=== PATIENT | female | born 1955 | race Caucasian/White ===

== ENCOUNTER → 2017-05-02 07:30 | Outpatient (CLI) | payer MEDICAID, SELFPAY ==
[2017-05-02 13:27] LABS: Basophils # 0.1 K/mm3 (0-0.2); Basophils % 0.7 % (0.1-2.0); Eosinophils # 0.1 K/mm3 (0.0-0.4); Eosinophils % 1.4 % (0.1-12.0); Hematocrit 43.4 % (37.0-47.0); Hemoglobin 13.7 g/dL (12.2-16.2); Lymphocytes # 4.8 K/mm3 (0.7-4.5); Lymphocytes % 47.7 K/mm3 (10-50); Mean Corpuscular HGB Conc 31.6 g/dL (31.8-35.4); Mean Corpuscular Hemoglobin 29.9 pg (27.0-31.2); Mean Corpuscular Volume 94.7 fl (81-99); Mean Platelet Volume 6.7 fl (7.4-10.4); Monocytes # 0.3 K/mm3 (0.1-1.0); Monocytes % 3.2 % (1.7-9.3); Neutrophils # 4.7 K/mm3 (1.8-7.8); Neutrophils % 46.9 % (37.0-80.0); Platelet Count 622 K/mm3 (142-424); Red Blood Count 4.59 M/mm3 (4.20-5.40); Red Cell Distribution Width 13.8 % (11.5-17.5); White Blood Count 10.1 K/mm3 (4.8-10.8)
[2017-05-02 13:56] LABS: Alanine Aminotransferase 18 U/L (12-78); Albumin Level 3.3 gm/dL (3.4-5.0); Albumin/Globulin Ratio 0.9 (1.1-1.8); Alkaline Phosphatase 65 U/L (46-116); Anion Gap 11.2 mEq/L (5-15); Aspartate Amino Transferase 12 U/L (15-37); Bilirubin,Total 0.3 mg/dL (0.2-1.0); Blood Urea Nitrogen 22 mg/dL (7-18); Calcium 9.9 mg/dL (8.5-10.1); Carbon Dioxide 34 mmol/L (21.0-32.0); Chloride 102 mmol/L (98-107); Chol/HDL Ratio 3.4 (1-3.5); Cholesterol 168 mg/dL (140-200); Creatinine,Serum 0.91 mg/dL (0.55-1.02); Estimated Glomerular Filt Rate 63 ml/min (>60); GFR (African American) 76 ML/MIN (>60); Globulin 3.5 gm/dl (1.3-3.2); Glucose 86 mg/dL (74-106); HDL Cholesterol 49 mg/dL (29-89); LDL Cholesterol 85 mg/dL (0-130); Potassium 4.2 mmoL/L (3.5-5.1); Sodium 143 mmol/L (136-145); Total Protein,Serum 6.8 gm/dL (6.4-8.2); Triglycerides 169 mg/dL (30-200); VLDL Cholesterol 34 mg/dL (0-40)
== END ==
PROVIDERS: PCP Nurse Practitioner Family; Visit Provider Nurse Practitioner Family
DX: E78.5 Hyperlipidemia, unspecified (principal); I10 Essential (primary) hypertension; J44.1 Chronic obstructive pulmonary disease with (acute) exacerbation; K62.5 Hemorrhage of anus and rectum
CPT/HCPCS: 36415; 80053; 80061; 85025

== ENCOUNTER → 2017-05-11 13:19 | Outpatient (CLI) | payer MEDICAID, SELFPAY ==
--- NOTE | 2017-05-11 13:26 | XR_ITS ---
EXAM: XR thoracic spine 3V HISTORY: ITS.REASON: ACUTE BILAT THORACIC PAIN COMPARISON: Lateral chest radiograph of 11/25/2016 FINDINGS: Normal alignment. There is mild chronic wedging involving what appears to represent T7 and T8. Mild wedging lumbar T9 which was not evident on the previous exam and may be acute with cortical disruption along the anterior inferior margin. There is loss of height of T9 of approximately 30%. No obvious retropulsed fragments. Degenerative disc disease is present at T11-T12 MRI may confirm these above findings. IMPRESSION: 1. Mild wedging of T9 which has developed since 11/25/2016 2. Chronic wedging of T7 and T8.
== END ==
PROVIDERS: PCP Nurse Practitioner Family; Visit Provider Nurse Practitioner Family
DX: M54.6 Pain in thoracic spine (principal)
CPT/HCPCS: 72072

== ENCOUNTER 2017-06-07 10:00 | Outpatient (RCR) | payer MEDICAID, SELFPAY | END 2017-07-03 15:09 | disposition home or self-care (01) | LOC: PT 10:00 | PROVIDERS: Family Provider Internal Medicine Adolescent Medicine; PCP Nurse Practitioner Family; Visit Provider Internal Medicine Adolescent Medicine | DX: M54.6 Pain in thoracic spine (principal) | CPT/HCPCS: 97014; 97033; 97035; 97110; 97140; G0283 ==

== ENCOUNTER → 2017-06-11 11:08 | Outpatient (CLI) | payer MEDICAID, SELFPAY ==
[2017-06-11 13:55] LABS: Basophils # 0.1 K/mm3 (0-0.2); Basophils % 0.5 % (0.1-2.0); Eosinophils # 0.1 K/mm3 (0.0-0.4); Eosinophils % 1.2 % (0.1-12.0); Hematocrit 42.7 % (37.0-47.0); Hemoglobin 14.4 g/dL (12.2-16.2); Lymphocytes # 2.5 K/mm3 (0.7-4.5); Mean Corpuscular HGB Conc 33.7 g/dL (31.8-35.4); Mean Corpuscular Hemoglobin 30.6 pg (27.0-31.2); Mean Corpuscular Volume 90.8 fl (81-99); Mean Platelet Volume 6.8 fl (7.4-10.4); Monocytes # 0.5 K/mm3 (0.1-1.0); Monocytes % 4.4 % (1.7-9.3); Neutrophils # 8.6 K/mm3 (1.8-7.8); Neutrophils % 72.9 % (37.0-80.0); Platelet Count 533 K/mm3 (142-424); Red Blood Count 4.71 M/mm3 (4.20-5.40); Red Cell Distribution Width 14.1 % (11.5-17.5); White Blood Count 11.8 K/mm3 (4.8-10.8)
== END ==
PROVIDERS: PCP Nurse Practitioner Family; Visit Provider Nurse Practitioner Family
DX: D47.3 Essential (hemorrhagic) thrombocythemia (principal)
CPT/HCPCS: 36415; 85025

== ENCOUNTER → 2017-06-25 10:42 | Outpatient (CLI) | payer MEDICAID, SELFPAY ==
--- NOTE | 2017-06-25 10:45 | MM_ITS ---
MM Dig screening mamm BI w/CAD CAD Screening ORDERING PHYSICIAN : Kingston Ybarra MD PATIENT AGE: 62 years GENDER: Female COMPARISON: Previous mammograms: November 2014, May 2016, June 20, 2016. INDICATION: No hormones no new complaints noncontributory family history TECHNIQUE: Standard CC and MLO images were obtained. R2 CAD reviewed. FINDINGS: Low-density breast with no significant new findings. Multiple mole markers bilaterally noted RIGHT BREAST:. Stable.. Scattered benign calcifications just lateral and above nipple. LEFT BREAST:The small round nodular density at the deep left breast likely at the inferior margin of the breast is again observed and stable. May be a skin mole based on the diagnostic images from 06/20/2016 is again observed. No significant change. The small cluster of stable benign punctate calcifications deep upper quadrant left breast is stable. IMPRESSION: Stable bilateral mammogram with no significant new findings. . Stable benign-appearing features bilaterally within otherwise low-density fatty breast Bilateral follow-up in one year recommended. BI-RADS Category: 1 Negative RECOMMENDED FOLLOW-UP: 1YR - 1 YEAR FOLLOW-UP (A letter has been sent to the patient regarding results of the study.)
== END ==
PROVIDERS: Family Provider Internal Medicine Adolescent Medicine; PCP Nurse Practitioner Family; Visit Provider Internal Medicine Adolescent Medicine
DX: Z12.31 Encounter for screening mammogram for malignant neoplasm of breast (principal)
CPT/HCPCS: 77067

== ENCOUNTER → 2017-07-23 09:44 | Outpatient (POV) | payer MEDICAID, SELFPAY ==
[2017-07-23 09:57] VITALS: BP 137/95; PULSE 96; RESP 21; O2SAT 95; BMI 33.2
--- NOTE | 2017-07-23 10:37 | HMH.PAINSOAP ---
[facility] Pain Management SOAP Note Subjective:: This patient is a pleasant 62-year-old white female who presents today for evaluation. Patient has been seen in our clinic before however she has not been able to do any injective therapy due to hospital admissions and emergency surgeries. Patient states that her thoracic back pain has worsened. Patient had an x-ray of her thoracic spine showing wedging. Patient does not have MRI of thoracic spine. Patient rates her pain a 7 out of 10 today. Patient states it is progressively getting worse. Patient has completed physical therapy with no relief. ROS General: no recent weight change, no fever, no sleep disturbances Respiratory: no cough, no shortness of air, no recurring pulmonary infections Cardiovascular/Peripheral Vascular: No chest pain, No palpitations, no edema, no shortness of breath. Gastrointestinal: no incontinence, normal bowel movements reported Genitourinary: no incontinence Musculoskeletal: Low back and thoracic back pain Psychiatric: normal mood/ affect Neurological: [denies weakness in extremities], [denies balance issues] Objective:: Physical Exam General: Alert and oriented x3, no acute distress, pleasant and cooperative, [on room air] Lungs: Resps E/U, Symmetrical chest expansion, Eyes: PERRL Musculoskeletal: Flexion and extension of thoracic spine somewhat guarded secondary to pain, deep tendon reflexes normal, strength in upper and lower extremities [5/5], normal gait noted, palpable trigger points in bilateral thoracic paraspinous, extreme tenderness over the thoracic spine Neurological: speech clear, grappler equal, no gross sensory deficits Assessment:: Myofascial pain syndrome, thoracic back pain, thoracic vertebral wedging Plan:: We will order an MRI of her thoracic spine. Given the pathology on her x-ray I believe that this is warranted. Patient's tried physical therapy without relief. Patient also tried medications and anti-inflammatories without relief. We will also order trigger point injections of the thoracic paraspinous bilaterally. I believe that this may help with some of her myofascial pain. This note was dictated using voice recognition software and may contain errors or omissions
--- NOTE | 2017-07-23 10:40 | P.CONS_ITS ---
[facility] Pain Management SOAP Note Subjective:: This patient is a pleasant 62-year-old white female who presents today for evaluation. Patient has been seen in our clinic before however she has not been able to do any injective therapy due to hospital admissions and emergency surgeries. Patient states that her thoracic back pain has worsened. Patient had an x-ray of her thoracic spine showing wedging. Patient does not have MRI of thoracic spine. Patient rates her pain a 7 out of 10 today. Patient states it is progressively getting worse. Patient has completed physical therapy with no relief. ROS General: no recent weight change, no fever, no sleep disturbances Respiratory: no cough, no shortness of air, no recurring pulmonary infections Cardiovascular/Peripheral Vascular: No chest pain, No palpitations, no edema, no shortness of breath. Gastrointestinal: no incontinence, normal bowel movements reported Genitourinary: no incontinence Musculoskeletal: Low back and thoracic back pain Psychiatric: normal mood/ affect Neurological: [denies weakness in extremities], [denies balance issues] Objective:: Physical Exam General: Alert and oriented x3, no acute distress, pleasant and cooperative, [ on room air] Lungs: Resps E/U, Symmetrical chest expansion, Eyes: PERRL Musculoskeletal: Flexion and extension of thoracic spine somewhat guarded secondary to pain, deep tendon reflexes normal, strength in upper and lower extremities [5/5], normal gait noted, palpable trigger points in bilateral thoracic paraspinous, extreme tenderness over the thoracic spine Neurological: speech clear, back gray cloth washer equal, no gross sensory deficits Assessment:: Myofascial pain syndrome, thoracic back pain, thoracic vertebral wedging Plan:: We will order an MRI of her thoracic spine. Given the pathology on her x-ray I believe that this is warranted. Patient's tried physical therapy without relief. Patient also tried medications and anti-inflammatories without relief. We will also order trigger point injections of the thoracic paraspinous bilaterally. I believe that this may help with some of her myofascial pain. This note was dictated using voice recognition software and may contain errors or omissions
[2017-07-23 11:29] LABS: Basophils % 0.5 % (0.1-2.0); Eosinophils # 0.1 K/mm3 (0.0-0.4); Eosinophils % 0.9 % (0.1-12.0); Hematocrit 46.4 % (37.0-47.0); Hemoglobin 15.1 g/dL (12.2-16.2); Lymphocytes # 2.8 K/mm3 (0.7-4.5); Lymphocytes % 34.4 K/mm3 (10-50); Mean Corpuscular HGB Conc 32.5 g/dL (31.8-35.4); Mean Corpuscular Hemoglobin 31.4 pg (27.0-31.2); Mean Corpuscular Volume 96.7 fl (81-99); Mean Platelet Volume 6.4 fl (7.4-10.4); Monocytes # 0.4 K/mm3 (0.1-1.0); Monocytes % 4.8 % (1.7-9.3); Neutrophils # 4.8 K/mm3 (1.8-7.8); Neutrophils % 59.3 % (37.0-80.0); Platelet Count 456 K/mm3 (142-424); Red Cell Distribution Width 14.3 % (11.5-17.5); White Blood Count 8.1 K/mm3 (4.8-10.8)
[2017-07-23 11:43] LABS: Anion Gap 10.2 mEq/L (5-15); Blood Urea Nitrogen 21 mg/dL (7-18); Carbon Dioxide 31 mmol/L (21.0-32.0); Chloride 96 mmol/L (98-107); Creatinine Clearance Estimated 74 mL/min (0-300); Creatinine,Serum 0.94 mg/dL (0.55-1.02); Estimated Glomerular Filt Rate 61 ml/min (>60); GFR (African American) 73 ML/MIN (>60); Glucose 86 mg/dL (74-106); Potassium 4.2 mmoL/L (3.5-5.1); Sodium 133 mmol/L (136-145)
== END ==
PROVIDERS: Surgery; Family Provider Internal Medicine Adolescent Medicine; PCP Nurse Practitioner Family; Visit Provider Clinical Nurse Specialist Family Health
DX: M54.6 Pain in thoracic spine (principal); M79.1 Myalgia
CPT/HCPCS: 99212; 36415; 80048; 85025; 93005

== ENCOUNTER → 2017-07-30 07:42 | Outpatient (CLI) | payer MEDICAID, SELFPAY ==
--- NOTE | 2017-07-30 07:44 | MR_ITS ---
MR thoracic spine wo con HISTORY: Symptoms X2 months. Mid back pain, pain worse on left side. No Trauma. ITS.REASON: THORACIC BACK PAIN ORDERING PHYSICIAN: Jamie Bautista MD PATIENT AGE: 62 years COMPARISON: Radiograph of 05/11/2017 showing new wedge compression changes of T9 and chronic wedge compression changes of T7 TECHNIQUE: Standard multiplanar multiecho sequences are performed without contrast. 3-D MIP and myelographic images are also rendered and reviewed FINDINGS: There is normal alignment. There is mild to moderate wedge compression changes of T7 with loss of height anteriorly of approximately 40% without retropulsion. These findings appear chronic. Mild chronic wedging also noted at T8 with loss of height anteriorly at 10%. There is resultant kyphosis in the mid to lower thoracic spine. Moderate wedge compression changes involve the T9 vertebral body with decreased T1 and T2 signal along the inferior endplate anteriorly with mild bone marrow edema in the mid and superior aspect of the vertebral body centrally and anteriorly. There is mild retropulsion of the posterior inferior aspect of T9 of approximately 3 mm with resultant narrowing of the canal but no cord impingement. Bilateral lateral recess narrowing also noted. There is multilevel degenerative disc disease from T5 to T 12. Minimal bulging disc present at T11-T12. IMPRESSION: 1. Acute wedge compression changes of T9 with loss of height anteriorly of 30-40% and mild retropulsion of the posterior inferior aspect of T9 x 3 mm with narrowing of the canal. 2. Multilevel degenerative disc disease with mild chronic wedging of T7 and T8 and mild lower thoracic kyphosis
== END ==
PROVIDERS: Family Provider Internal Medicine Adolescent Medicine; PCP Nurse Practitioner Family; Visit Provider Anesthesiology
DX: M54.6 Pain in thoracic spine (principal)
CPT/HCPCS: 72146

== ENCOUNTER → 2017-08-17 10:39 | Outpatient (CLI) | payer MEDICAID, SELFPAY ==
[2017-08-17 14:15] LABS: Alanine Aminotransferase 19 U/L (12-78); Albumin Level 3.9 gm/dL (3.4-5.0); Alkaline Phosphatase 88 U/L (46-116); Anion Gap 11.7 mEq/L (5-15); Aspartate Amino Transferase 15 U/L (15-37); Bilirubin,Total 0.4 mg/dL (0.2-1.0); Blood Urea Nitrogen 18 mg/dL (7-18); Carbon Dioxide 31 mmol/L (21.0-32.0); Chloride 101 mmol/L (98-107); Estimated Glomerular Filt Rate 64 ml/min (>60); GFR (African American) 77 ML/MIN (>60); Glucose 92 mg/dL (74-106); Potassium 3.7 mmoL/L (3.5-5.1); Sodium 140 mmol/L (136-145); Thyroid Stimulating Hormone 1.67 uIU/ml (0.358-3.740); Total Protein,Serum 7.9 gm/dL (6.4-8.2)
[2017-08-17 14:27] LABS: Basophils % 0.5 % (0.1-2.0); Eosinophils # 0.1 K/mm3 (0.0-0.4); Eosinophils % 1.3 % (0.1-12.0); Hematocrit 47.1 % (37.0-47.0); Hemoglobin 15.1 g/dL (12.2-16.2); Lymphocytes # 2.7 K/mm3 (0.7-4.5); Lymphocytes % 36.9 K/mm3 (10-50); Mean Corpuscular Hemoglobin 30.8 pg (27.0-31.2); Mean Corpuscular Volume 96.4 fl (81-99); Mean Platelet Volume 6.9 fl (7.4-10.4); Monocytes # 0.3 K/mm3 (0.1-1.0); Monocytes % 3.7 % (1.7-9.3); Neutrophils # 4.2 K/mm3 (1.8-7.8); Neutrophils % 57.7 % (37.0-80.0); Platelet Count 470 K/mm3 (142-424); Red Blood Count 4.89 M/mm3 (4.20-5.40); Red Cell Distribution Width 13.7 % (11.5-17.5); White Blood Count 7.3 K/mm3 (4.8-10.8)
[2017-08-18 20:14] LABS: Vitamin B12 566 pg/mL (232-1245); Vitamin D 25 Hydroxy 30.1 ng/mL (30.0-100.0)
== END ==
PROVIDERS: PCP Nurse Practitioner Family; Visit Provider Nurse Practitioner Family
DX: R53.83 Other fatigue (principal)
CPT/HCPCS: 36415; 80053; 82607; 82652; 84443; 85025

== ENCOUNTER → 2017-08-30 07:53 | Outpatient (CLI) | payer MEDICAID, SELFPAY ==
[2017-08-30 14:23] LABS: Basophils # 0.1 K/mm3 (0-0.2); Basophils % 0.6 % (0.1-2.0); Eosinophils # 0.1 K/mm3 (0.0-0.4); Eosinophils % 1.3 % (0.1-12.0); Hematocrit 43.6 % (37.0-47.0); Hemoglobin 14.5 g/dL (12.2-16.2); Lymphocytes # 3.2 K/mm3 (0.7-4.5); Lymphocytes % 37.2 K/mm3 (10-50); Mean Corpuscular HGB Conc 33.3 g/dL (31.8-35.4); Mean Corpuscular Hemoglobin 31.3 pg (27.0-31.2); Mean Platelet Volume 7.1 fl (7.4-10.4); Monocytes # 0.3 K/mm3 (0.1-1.0); Monocytes % 3.4 % (1.7-9.3); Neutrophils % 57.5 % (37.0-80.0); Platelet Count 441 K/mm3 (142-424); Red Blood Count 4.64 M/mm3 (4.20-5.40); Red Cell Distribution Width 13.4 % (11.5-17.5); White Blood Count 8.7 K/mm3 (4.8-10.8)
[2017-08-30 17:23] LABS: Alanine Aminotransferase 22 U/L (12-78); Albumin Level 3.5 gm/dL (3.4-5.0); Alkaline Phosphatase 78 U/L (46-116); Anion Gap 10.5 mEq/L (5-15); Aspartate Amino Transferase 15 U/L (15-37); Bilirubin,Direct 0.1 mg/dL (0.0-0.2); Bilirubin,Indirect 0.2 mg/dL (0.0-0.9); Bilirubin,Total 0.3 mg/dL (0.2-1.0); Blood Urea Nitrogen 24 mg/dL (7-18); Carbon Dioxide 30 mmol/L (21.0-32.0); Chloride 99 mmol/L (98-107); Chol/HDL Ratio 4.4 (1-3.5); Cholesterol 195 mg/dL (140-200); Creatinine,Serum 0.91 mg/dL (0.55-1.02); Estimated Glomerular Filt Rate 63 ml/min (>60); Free Thyroxine Index 2.9 ug/dL (5.93-13.13); GFR (African American) 76 ML/MIN (>60); Glucose 89 mg/dL (74-106); HDL Cholesterol 44 mg/dL (29-89); LDL Cholesterol 121 mg/dL (0-130); Potassium 3.5 mmoL/L (3.5-5.1); Sodium 136 mmol/L (136-145); T4 (Thyroxine) 8.7 ug/dl (4.7-13.3); Total Protein,Serum 7.3 gm/dL (6.4-8.2); Triglycerides 148 mg/dL (30-200); Triiodothryronine (T3) Uptake 33 % (31-39); VLDL Cholesterol 30 mg/dL (0-40)
== END ==
PROVIDERS: PCP Nurse Practitioner Family; Visit Provider Internal Medicine
DX: R06.00 Dyspnea, unspecified (principal); R94.31 Abnormal electrocardiogram [ECG] [EKG]; I25.10 Atherosclerotic heart disease of native coronary artery without angina pectoris; I10 Essential (primary) hypertension; E78.5 Hyperlipidemia, unspecified; Z86.010 Personal history of colon polyps
CPT/HCPCS: 36415; 80048; 80061; 80076; 84436; 84443; 84479; 85025

== ENCOUNTER → 2017-09-07 10:39 | Outpatient (CLI) | payer MEDICAID, SELFPAY ==
--- NOTE | 2017-09-07 10:40 | NM_ITS ---
History and Indications: Coronary disease previous MO, hypertension, tobacco use, family history and fatigue Procedure: Patient received a 0.4 mg of Lexiscan, resting heart rate was 73 beats per resting blood pressure 118/71, with Lexiscan maximum heart rate achieved was 113 beats prominent which is less than 85% of the maximum predicted heart rate and a blood pressure was 127/72. With Lexiscan patient complained of mild shortness of breath and stomach discomfort. Electrocardiogram: Resting electrocardiogram showed sinus rhythm, with Lexiscan there is less than 1.[address] segment depression from the baseline EKG. The EKG portion of the Lexiscan Myoview is nondiagnostic. Cardiac stress and resting SPECT images: Cardiac stress and resting SPECT images were obtained using technetium 99 Myoview 32.6 mCi at stress content 10.8 mCi at rest, gated SPECT further analysis of segmental wall motion and calculation of the ejection fraction also done. Cardiac stress and rest images show a mild fixed defect in the inferior wall with normal contractility gated SPECT is likely secondary to soft tissue, no reversible ischemia seen, either derived ejection fraction is over 65% with no obvious regional wall motion abnormality, right ventricle is normal size and contractility. Conclusion: 1. The EKG portion of the Lexiscan Myoview is nondiagnostic. 2. No obvious scintigraphic evidence of reversible ischemia seen, computer derived ejection fraction is over 65% with no obvious regional wall motion abnormality, right ventricle is normal size and contractility.
== END ==
PROVIDERS: Family Provider Internal Medicine Adolescent Medicine; PCP Nurse Practitioner Family; Visit Provider Internal Medicine
DX: R94.31 Abnormal electrocardiogram [ECG] [EKG] (principal); R06.00 Dyspnea, unspecified; I25.10 Atherosclerotic heart disease of native coronary artery without angina pectoris; E78.5 Hyperlipidemia, unspecified; I10 Essential (primary) hypertension; Z86.010 Personal history of colon polyps
CPT/HCPCS: 78452; 93017; A9502; J2785

== ENCOUNTER → 2017-09-11 07:36 | Outpatient (CLI) | payer MEDICAID, SELFPAY ==
[2017-09-11 14:01] LABS: Basophils % 0.5 % (0.1-2.0); Eosinophils # 0.1 K/mm3 (0.0-0.4); Eosinophils % 1.5 % (0.1-12.0); Hematocrit 42.2 % (37.0-47.0); Hemoglobin 14.2 g/dL (12.2-16.2); Lymphocytes # 2.7 K/mm3 (0.7-4.5); Lymphocytes % 32.3 K/mm3 (10-50); Mean Corpuscular HGB Conc 33.6 g/dL (31.8-35.4); Mean Corpuscular Hemoglobin 30.9 pg (27.0-31.2); Mean Corpuscular Volume 91.8 fl (81-99); Mean Platelet Volume 7.4 fl (7.4-10.4); Monocytes # 0.3 K/mm3 (0.1-1.0); Neutrophils # 5.2 K/mm3 (1.8-7.8); Neutrophils % 61.7 % (37.0-80.0); Platelet Count 433 K/mm3 (142-424); Red Blood Count 4.59 M/mm3 (4.20-5.40); Red Cell Distribution Width 13.5 % (11.5-17.5); White Blood Count 8.4 K/mm3 (4.8-10.8)
[2017-09-11 14:37] LABS: Alanine Aminotransferase 20 U/L (12-78); Albumin Level 3.9 gm/dL (3.4-5.0); Alkaline Phosphatase 84 U/L (46-116); Anion Gap 13.2 mEq/L (5-15); Aspartate Amino Transferase 15 U/L (15-37); Bilirubin,Total 0.4 mg/dL (0.2-1.0); Blood Urea Nitrogen 24 mg/dL (7-18); Calcium 9.9 mg/dL (8.5-10.1); Carbon Dioxide 30 mmol/L (21.0-32.0); Chloride 95 mmol/L (98-107); Creatinine,Serum 1.01 mg/dL (0.55-1.02); Estimated Glomerular Filt Rate 56 ml/min (>60); Ferritin 36 ng/mL (8-388); GFR (African American) 67 ML/MIN (>60); Globulin 3.8 gm/dl (1.3-3.2); Glucose 89 mg/dL (74-106); Magnesium 1.5 mg/dL (1.4-2.2); Potassium 3.2 mmoL/L (3.5-5.1); Sodium 135 mmol/L (136-145); Total Protein,Serum 7.7 gm/dL (6.4-8.2)
[2017-09-13 21:12] LABS: Vitamin B12 534 pg/mL (232-1245)
== END ==
PROVIDERS: Visit Provider Internal Medicine Adolescent Medicine
DX: G25.81 Restless legs syndrome (principal)
CPT/HCPCS: 36415; 80053; 82607; 82728; 83735; 85025

== ENCOUNTER → 2017-10-10 07:16 | Outpatient (CLI) | payer MEDICAID, SELFPAY ==
[2017-10-10 14:18] LABS: Basophils # 0.1 K/mm3 (0-0.2); Eosinophils # 0.3 K/mm3 (0.0-0.4); Eosinophils % 4.6 % (0.1-12.0); Hematocrit 43.2 % (37.0-47.0); Hemoglobin 13.5 g/dL (12.2-16.2); Lymphocytes % 45.5 K/mm3 (10-50); Mean Corpuscular HGB Conc 31.2 g/dL (31.8-35.4); Mean Corpuscular Hemoglobin 29.4 pg (27.0-31.2); Mean Corpuscular Volume 94.3 fl (81-99); Mean Platelet Volume 7.1 fl (7.4-10.4); Monocytes # 0.3 K/mm3 (0.1-1.0); Neutrophils % 44.8 % (37.0-80.0); Platelet Count 414 K/mm3 (142-424); Red Blood Count 4.58 M/mm3 (4.20-5.40); Red Cell Distribution Width 13.7 % (11.5-17.5); White Blood Count 6.6 K/mm3 (4.8-10.8)
[2017-10-10 14:36] LABS: Anion Gap 10.4 mEq/L (5-15); Blood Urea Nitrogen 14 mg/dL (7-18); Calcium 9.2 mg/dL (8.5-10.1); Carbon Dioxide 29 mmol/L (21.0-32.0); Chloride 103 mmol/L (98-107); Creatinine,Serum 0.87 mg/dL (0.55-1.02); Estimated Glomerular Filt Rate 66 ml/min (>60); GFR (African American) 80 ML/MIN (>60); Glucose 86 mg/dL (74-106); Potassium 3.4 mmoL/L (3.5-5.1); Sodium 139 mmol/L (136-145)
[2017-10-12 20:02] LABS: Vitamin D 25 Hydroxy 38.7 ng/mL (30.0-100.0)
== END ==
PROVIDERS: Visit Provider Internal Medicine Adolescent Medicine
DX: S22.070S Wedge compression fracture of T9-T10 vertebra, sequela (principal); E78.6 Lipoprotein deficiency
CPT/HCPCS: 36415; 80048; 82652; 85025

== ENCOUNTER → 2017-10-15 12:29 | Outpatient (CLI) | payer MEDICAID, SELFPAY ==
--- NOTE | 2017-10-15 12:37 | XR_ITS ---
DEXA SCAN.-BONE DENSITY STUDY HIPS AND LUMBAR SPINE HISTORY: Postmenopausal female. low calcium intake smoker. Takes vitamin D. TECHNIQUE: DEXA scan hip and lumbar spine The most complete data summary and color graphic presentation of the today's ( and any prior ) DEXA findings are available in PACS. Definition and treatment guidelines included. COMPARISON: None listed LUMBAR SPINE: L4 vertebral body demonstrates the lowest T score -3.1 with BMD0.83 g/cm sq Overall mean lumbar L1-L4 T score -2.2 with BMD0.911 g/cm sq . 2014 prior DEXA the mean T score -2.4, 0.897 with BMD was 1.224 g/cm sq Thus when comparing today's study to the prior exam there's been a 1.6 % increasing mean bone density at the lumbar spine. HIPS: Femoral neck density is best predictor of hip fracture risk . Right femoral neck with lowest T score = -3.1 with BMD0.933 g/cm sq . Left femoral neck T score -2.9 and BMD 0.642 Average all regions yields today's Hip Mean T score -2.3 with BMD0.719 g/cm sq . 2015 DEXA hip average T score -2.7 with mean BMD0.670 g/cm sq Thus this reflects a 7.3% increasein overall mean bone density at the hips in the interval. IMPRESSION...... 1. LUMBAR SPINE: Overall osteopenia at lumbar spine with overall T score -2.2. However there is osteoporosis at L4 vertebral body, with T score = -3.1 at L4 2. HIPS: Osteoporosis of the femoral necks bilaterally. Right femoral neck lowest T score -3.1. WHO criteria for post-menopausal, Women: Normal: T-score at or above -1 SD Osteopenia: T-score between -1 and -2.5 SD Osteoporosis: T-score at or below -2.5 SD
== END ==
PROVIDERS: Family Provider Internal Medicine Adolescent Medicine; PCP Nurse Practitioner Family; Visit Provider Internal Medicine Adolescent Medicine
DX: S22.070S Wedge compression fracture of T9-T10 vertebra, sequela (principal)
CPT/HCPCS: 77080

== ENCOUNTER → 2017-10-15 13:27 | Outpatient (POV) | payer MEDICAID, SELFPAY ==
[2017-10-15 13:33] VITALS: BP 141/85; PULSE 84; RESP 18; TEMP 36.6; O2SAT 95; BMI 31.7
--- NOTE | 2017-10-15 15:19 | HMH.PAINSOAP ---
[facility] Pain Management SOAP Note Subjective:: Patient is a pleasant 62-year-old white female who we are treating for low back pain along with a T9 compression fracture. Patient status post a kyphoplasty. Patient states that she has no pain in the site of the kyphoplasty. Patient states that all of the pain in relation to her compression fracture has dissipated. Patient states however her low back pain is getting worse. Patient has tried and failed physical therapy, medications, anti-inflammatories and injections. Patient is interested in intrathecal therapy I believe that this may be beneficial for her. Patient rates her pain an 8 out of 10 today. Patient states it is constant. Patient and I had a long discussion in regards to intrathecal pump therapy including realistic goal setting along with the trial and implantation process. Patient is interested in pursuing this. ROS General: no recent weight change, no fever, no sleep disturbances Respiratory: no cough, no shortness of air, no recurring pulmonary infections Cardiovascular/Peripheral Vascular: No chest pain, No palpitations, no edema, no shortness of breath. Gastrointestinal: no incontinence, normal bowel movements reported Genitourinary: no incontinence Musculoskeletal: Back pain, leg pain Psychiatric: normal mood/ affect, Neurological: [denies weakness in extremities], [denies balance issues] Objective:: Physical Exam General: Alert and oriented x3, no acute distress, pleasant and cooperative, [on room air] Lungs: Resps E/U, Symmetrical chest expansion, Eyes: PERRL Musculoskeletal: Flexion and extension of lumbar spine somewhat guarded secondary to pain, deep tendon reflexes normal, strength in upper and lower extremities [5/5], slightly antalgic noted, positive straight leg raise test bilaterally at 30? Neurological: speech clear, building specialist equal, no gross sensory deficits Assessment:: Degenerative disc disease, kyphosis, lumbar radiculopathy Plan:: Patient and I had a long discussion in regards to intrathecal pain therapy. Patient is interested in pursuing this. We will set her up with a psychological evaluation. Patient's tried and failed conservative measures such as physical therapy, medications, anti-inflammatories, injections. Patient is doing well in regards to her kyphoplasty. Patient is not on any oral narcotic medications at this time. I will follow-up with this patient after her intrathecal trial. This note was dictated using voice recognition software and may contain errors or omissions
--- NOTE | 2017-10-15 15:23 | P.CONS_ITS ---
[facility] Pain Management SOAP Note Subjective:: Patient is a pleasant 62-year-old white female who we are treating for low back pain along with a T9 compression fracture. Patient status post a kyphoplasty. Patient states that she has no pain in the site of the kyphoplasty. Patient states that all of the pain in relation to her compression fracture has dissipated. Patient states however her low back pain is getting worse. Patient has tried and failed physical therapy, medications, anti-inflammatories and injections. Patient is interested in intrathecal therapy I believe that this may be beneficial for her. Patient rates her pain an 8 out of 10 today. Patient states it is constant. Patient and I had a long discussion in regards to intrathecal pump therapy including realistic goal setting along with the trial and implantation process. Patient is interested in pursuing this. ROS General: no recent weight change, no fever, no sleep disturbances Respiratory: no cough, no shortness of air, no recurring pulmonary infections Cardiovascular/Peripheral Vascular: No chest pain, No palpitations, no edema, no shortness of breath. Gastrointestinal: no incontinence, normal bowel movements reported Genitourinary: no incontinence Musculoskeletal: Back pain, leg pain Psychiatric: normal mood/ affect, Neurological: [denies weakness in extremities], [denies balance issues] Objective:: Physical Exam General: Alert and oriented x3, no acute distress, pleasant and cooperative, [ on room air] Lungs: Resps E/U, Symmetrical chest expansion, Eyes: PERRL Musculoskeletal: Flexion and extension of lumbar spine somewhat guarded secondary to pain, deep tendon reflexes normal, strength in upper and lower extremities [5/5], slightly antalgic noted, positive straight leg raise test bilaterally at 30? Neurological: speech clear, contract graphic designer equal, no gross sensory deficits Assessment:: Degenerative disc disease, kyphosis, lumbar radiculopathy Plan:: Patient and I had a long discussion in regards to intrathecal pain therapy. Patient is interested in pursuing this. We will set her up with a psychological evaluation. Patient's tried and failed conservative measures such as physical therapy, medications, anti-inflammatories, injections. Patient is doing well in regards to her kyphoplasty. Patient is not on any oral narcotic medications at this time. I will follow-up with this patient after her intrathecal trial. This note was dictated using voice recognition software and may contain errors or omissions
== END ==
PROVIDERS: Family Provider Internal Medicine Adolescent Medicine; PCP Nurse Practitioner Family; Visit Provider Clinical Nurse Specialist Family Health
DX: M54.16 Radiculopathy, lumbar region (principal)
CPT/HCPCS: 99212

== ENCOUNTER → 2017-10-22 11:15 | Outpatient (POV) | payer MEDICAID, SELFPAY ==
[2017-10-22 11:31] VITALS: BP 152/94; PULSE 99; RESP 18; O2SAT 98; BMI 31.4
--- NOTE | 2017-10-22 12:02 | HMH.PAINSOAP ---
[facility] Pain Management SOAP Note Subjective:: Patient is a pleasant 62-year-old white female who is following up due to increased pain. Patient rates her pain a 10 out of 10 today. She states it feels like it did when she broke her back the first time. Patient is uninterested in epidurals or kyphoplasty. Patient and I discussed bracing to help with pain relief. Patient is currently not on any medication other than [id number] anti-inflammatories. Patient is in process for intrathecal therapy. I believe that this is still a good route to pursue. Patient does too. Patient is set up for her psychological evaluation. We will medically manage her with bracing and low-dose tramadol until her intrathecal pain pump trial. Patient's tried and failed physical therapy, medications, anti-inflammatories and injections. ROS General: no recent weight change, no fever, no sleep disturbances Respiratory: no cough, no shortness of air, no recurring pulmonary infections Cardiovascular/Peripheral Vascular: No chest pain, No palpitations, no edema, no shortness of breath. Gastrointestinal: no incontinence, normal bowel movements reported Genitourinary: no incontinence Musculoskeletal: Back pain Psychiatric: normal mood/ affect Neurological: [denies weakness in extremities], [denies balance issues] Objective:: Physical Exam General: Alert and oriented x3, no acute distress, pleasant and cooperative, [on room air] Lungs: Resps E/U, Symmetrical chest expansion, Eyes: PERRL Musculoskeletal: Flexion and extension of lumbar spine somewhat guarded secondary to pain, deep tendon reflexes normal, strength in upper and lower extremities [5/5], [abnormal gait noted] Neurological: speech clear, canceling and cutting control clerk equal, no gross sensory deficits Assessment:: History of compression fracture, degenerative disc disease of the lumbar spine, lumbar radiculopathy Plan:: We will move forward with her intrathecal pain pump plan of care. Patient is set up with a psychological evaluation. We will plan on trialing her after she is deemed an appropriate candidate. Patient and I had a long discussion in regards to intrathecal pain therapy. Patient has tried and failed other conservative measures. We will call in tramadol 50 mg 1 p.o. 4 times daily as needed for her increase in pain. If the pain does not subside with medication and bracing we may get an additional MRI. I will follow-up with this patient after psychological eval. Patient's NAVIN #[id number] reviewed and appropriate. Dr. Bautista is reviewed this chart and agrees with this plan of care. This note was dictated using voice recognition software and may contain errors or omissions
--- NOTE | 2017-10-22 12:06 | P.CONS_ITS ---
[facility] Pain Management SOAP Note Subjective:: Patient is a pleasant 62-year-old white female who is following up due to increased pain. Patient rates her pain a 10 out of 10 today. She states it feels like it did when she broke her back the first time. Patient is uninterested in epidurals or kyphoplasty. Patient and I discussed bracing to help with pain relief. Patient is currently not on any medication other than [id number] anti-inflammatories. Patient is in process for intrathecal therapy. I believe that this is still a good route to pursue. Patient does too. Patient is set up for her psychological evaluation. We will medically manage her with bracing and low-dose tramadol until her intrathecal pain pump trial. Patient's tried and failed physical therapy, medications, anti- inflammatories and injections. ROS General: no recent weight change, no fever, no sleep disturbances Respiratory: no cough, no shortness of air, no recurring pulmonary infections Cardiovascular/Peripheral Vascular: No chest pain, No palpitations, no edema, no shortness of breath. Gastrointestinal: no incontinence, normal bowel movements reported Genitourinary: no incontinence Musculoskeletal: Back pain Psychiatric: normal mood/ affect Neurological: [denies weakness in extremities], [denies balance issues] Objective:: Physical Exam General: Alert and oriented x3, no acute distress, pleasant and cooperative, [ on room air] Lungs: Resps E/U, Symmetrical chest expansion, Eyes: PERRL Musculoskeletal: Flexion and extension of lumbar spine somewhat guarded secondary to pain, deep tendon reflexes normal, strength in upper and lower extremities [5/5], [abnormal gait noted] Neurological: speech clear, pin chaser equal, no gross sensory deficits Assessment:: History of compression fracture, degenerative disc disease of the lumbar spine, lumbar radiculopathy Plan:: We will move forward with her intrathecal pain pump plan of care. Patient is set up with a psychological evaluation. We will plan on trialing her after she is deemed an appropriate candidate. Patient and I had a long discussion in regards to intrathecal pain therapy. Patient has tried and failed other conservative measures. We will call in tramadol 50 mg 1 p.o. 4 times daily as needed for her increase in pain. If the pain does not subside with medication and bracing we may get an additional MRI. I will follow-up with this patient after psychological eval. Patient's NAVIN #[id number] reviewed and appropriate. Dr. Bautista is reviewed this chart and agrees with this plan of care. This note was dictated using voice recognition software and may contain errors or omissions
== END ==
PROVIDERS: Family Provider Internal Medicine Adolescent Medicine; PCP Nurse Practitioner Family; Visit Provider Clinical Nurse Specialist Family Health
DX: M54.16 Radiculopathy, lumbar region (principal)
CPT/HCPCS: 99212

== ENCOUNTER → 2017-11-06 12:46 | Outpatient (CLI) | payer MEDICAID, SELFPAY ==
--- NOTE | 2017-11-06 13:05 | CT_ITS ---
CT w con INDICATION: ITS.REASON: EMPHYSEMA, SHORTNESS OF BREATH ORDERING PHYSICIAN: Kingston Ybarra MD PATIENT AGE: 62 years COMPARISON: 11/25/2016 TECHNIQUE: Axial images are obtained with contrast. Sagittal and coronal reformatted images are reviewed as well. All CT scans at the facility use one or more dose reduction, viz: automated exposure control; ma/kV adjustment per patient size (including targeted exams where dose is matched to indication; i.e. head); or iterative reconstruction technique. FINDINGS: The lung issa are well expanded and appear clear of infiltrate. There are findings of mild centrilobular emphysema in both lungs. Cardiac size is normal, there is mild aortic tortuosity. There is 3 adjacent midthoracic vertebrae showing compression fractures. The superior most of the superior vertebral bodies was not compressed on the previous chest film in November 2016 IMPRESSION: Mild to moderate COPD, no acute chest pathology noted
[2017-11-06 13:17] LABS: Blood Urea Nitrogen 17 mg/dL (7-18); Creatinine,Serum 0.94 mg/dL (0.55-1.02); Estimated Glomerular Filt Rate 61 ml/min (>60); GFR (African American) 73 ML/MIN (>60)
--- NOTE | 2017-11-06 14:01 | HMH.ITSHM ---
METOPROLOL FUROSEMIDE BENAZEPRIL AMLODIPINE OMEPRAZOLE ALENDRONATE ASPIRIN CALCITRATE + RICHARD LIPITOR TRAMADOL INCRUSE BREO VENTOLIN
== END ==
PROVIDERS: Family Provider Internal Medicine Adolescent Medicine; PCP Nurse Practitioner Family; Visit Provider Internal Medicine Adolescent Medicine
DX: J43.9 Emphysema, unspecified (principal); R06.02 Shortness of breath
CPT/HCPCS: 36415; 71260; 82565; 84520; Q9967

== ENCOUNTER → 2018-04-30 09:42 | Outpatient (POV) | payer MEDICARE, MEDICAID, SELFPAY | PROVIDERS: Visit Provider Internal Medicine | DX: Z00.00 Encounter for general adult medical examination without abnormal findings (principal) ==

== ENCOUNTER → 2018-05-07 09:34 | Outpatient (CLI) | payer MEDICARE, MEDICAID, SELFPAY ==
[2018-05-07 10:30] VITALS: PULSE 78; PULSE 80
[2018-05-07 10:50] VITALS: BP 134/78; BP 160/95; PULSE 105; PULSE 78; RESP 16; RESP 22; O2SAT 92; O2SAT 94
== END ==
PROVIDERS: PCP Internal Medicine Adolescent Medicine; Visit Provider Internal Medicine
DX: J43.9 Emphysema, unspecified (principal)
CPT/HCPCS: 94060; 94618; 94640; 94726; 94729

== ENCOUNTER → 2018-07-11 13:16 | Outpatient (CLI) | payer MEDICARE, MEDICAID, SELFPAY ==
[2018-07-11 13:50] LABS: Blood Urea Nitrogen 11 mg/dL (7-18); Estimated Glomerular Filt Rate 56 ml/min (>60); GFR (African American) 68 ML/MIN (>60)
--- NOTE | 2018-07-11 13:58 | CT_ITS ---
CT head/brain wo/w con HISTORY: Right-sided headaches ITS.REASON: HEADACHES ABOVE EYES ORDERING PHYSICIAN: Fawad Curry MD PATIENT AGE: 63 years COMPARISON: 11/30/2008 TECHNIQUE: Axial images obtained without and with contrast enhancement. 100 mL's Optiray 320 utilized. Brain and bone windows reviewed. All CT scans at the facility use one or more dose reduction, viz: automated exposure control, ma/kV adjustment per patient size (including targeted exams where dose is matched to indication, i.e. head), or iterative reconstruction technique. FINDINGS: No midline shift, mass effect, intracranial hemorrhage, hydrocephalus, or extra-axial fluid collection is evident. No enhancing lesions are evident. There is normal gorman-white matter differentiation. The calvarium has an unremarkable appearance. No mastoid effusion. No sinus air-fluid levels.. IMPRESSION: Negative CT head without and with contrast. No acute finding
== END ==
PROVIDERS: PCP Internal Medicine Adolescent Medicine; Visit Provider Internal Medicine Adolescent Medicine
DX: R51 Headache (principal)
CPT/HCPCS: 36415; 70470; 82565; 84520; Q9967

== ENCOUNTER → 2018-07-16 11:14 | Outpatient (POV) | payer MEDICARE, MEDICAID, SELFPAY | PROVIDERS: Visit Provider Internal Medicine | DX: Z00.00 Encounter for general adult medical examination without abnormal findings (principal) ==

== ENCOUNTER → 2018-08-09 13:48 | Outpatient (CLI) | payer MEDICARE, MEDICAID, SELFPAY ==
--- NOTE | 2018-08-09 13:50 | MM_ITS ---
MM Dig screening mamm BI w/CAD CAD Screening COMPARISON: Digital mammograms with CAD 06/25/2017 and 06/06/2016 INDICATION: There is no personal or family history of breast cancer TECHNIQUE: Standard CC and MLO images were obtained. R2 CAD reviewed. FINDINGS: The breasts are composed almost entirely of fat with very minimal scattered fibroglandular densities noted. There are few scattered benign-appearing microcalcifications in each breast. The density projecting deep within the left breast on the previous exam apparently is a mole as it is surrounded by the mole marker. There is a mole marker right breast as well. There is no suspicious lesion and there are no suspicious microcalcifications. IMPRESSION: Fatty type breast parenchyma with no suspicious lesion seen BI-RADS Category: 2 Benign Finding(s) RECOMMENDED FOLLOW-UP: 1YR - 1 YEAR FOLLOW-UP (A letter has been sent to the patient regarding results of the study.)
== END ==
PROVIDERS: PCP Internal Medicine Adolescent Medicine; Visit Provider Internal Medicine Adolescent Medicine
DX: Z12.31 Encounter for screening mammogram for malignant neoplasm of breast (principal)
CPT/HCPCS: 77067

== ENCOUNTER → 2018-09-05 08:40 | Outpatient (CLI) | payer MEDICARE, MEDICAID, SELFPAY ==
[2018-09-05 13:52] LABS: Alanine Aminotransferase 19 U/L (12-78); Albumin Level 3.8 gm/dL (3.4-5.0); Alkaline Phosphatase 86 U/L (46-116); Anion Gap 13.7 mEq/L (5-15); Aspartate Amino Transferase 9 U/L (15-37); Bilirubin,Total 0.4 mg/dL (0.2-1.0); Blood Urea Nitrogen 23 mg/dL (7-18); Calcium 9.1 mg/dL (8.5-10.1); Carbon Dioxide 29 mmol/L (21.0-32.0); Chloride 104 mmol/L (98-107); Chol/HDL Ratio 4.5 (1-3.5); Cholesterol 145 mg/dL (140-200); Creatinine,Serum 0.86 mg/dL (0.55-1.02); Estimated Glomerular Filt Rate 67 ml/min (>60); GFR (African American) 81 ML/MIN (>60); Globulin 3.8 gm/dl (1.3-3.2); Glucose 96 mg/dL (74-106); HDL Cholesterol 32 mg/dL (29-89); LDL Cholesterol 76 mg/dL (0-130); Potassium 3.7 mmoL/L (3.5-5.1); Sodium 143 mmol/L (136-145); Thyroid Stimulating Hormone 1.39 uIU/ml (0.358-3.740); Total Protein,Serum 7.6 gm/dL (6.4-8.2); Triglycerides 184 mg/dL (30-200); VLDL Cholesterol 37 mg/dL (0-40)
[2018-09-05 14:38] LABS: Basophils % 0.6 % (0.1-2.0); Eosinophils # 0.1 K/mm3 (0.0-0.4); Eosinophils % 2.1 % (0.1-12.0); Hematocrit 45.5 % (37.0-47.0); Hemoglobin 15.3 g/dL (12.2-16.2); Lymphocytes # 3.1 K/mm3 (0.7-4.5); Lymphocytes % 47.3 % (10-50); Mean Corpuscular HGB Conc 33.5 g/dL (31.8-35.4); Mean Corpuscular Hemoglobin 30.9 pg (27.0-31.2); Mean Corpuscular Volume 92.2 fl (81-99); Monocytes # 0.3 K/mm3 (0.1-1.0); Monocytes % 4.1 % (1.7-9.3); Neutrophils % 45.9 % (37.0-80.0); Platelet Count 298 K/mm3 (142-424); Red Blood Count 4.94 M/mm3 (4.20-5.40); White Blood Count 6.5 K/mm3 (4.8-10.8)
[2018-09-06 10:42] LABS: Vitamin D 25 Hydroxy 37.4 ng/mL (30.0-100.0)
== END ==
PROVIDERS: PCP Nurse Practitioner Family; Visit Provider Nurse Practitioner Family
DX: E78.2 Mixed hyperlipidemia (principal); I10 Essential (primary) hypertension; E55.9 Vitamin D deficiency, unspecified; K21.9 Gastro-esophageal reflux disease without esophagitis
CPT/HCPCS: 36415; 80053; 80061; 82652; 84443; 85025

== ENCOUNTER → 2018-09-17 13:54 | Outpatient (CLI) | payer MEDICARE, MEDICAID, SELFPAY ==
--- NOTE | 2018-09-17 13:57 | CI_ITS ---
Cerebrovascular Exam Indications: 780.4 Dizziness and giddiness. IMPRESSIONS Study suggests less than 20% stenosis involving the right internal carotid artery and the left internal carotid artery. No change from the study of July 2016. History: Coronary artery disease. Risk factors: Hypertension. Hyperlipidemia. Carotid duplex study. Complete study and Doppler flow study including spectral analysis, color and gorman scale imaging. Height: Height: 162.6cm. Height: 64in. Weight: Weight: 82.6kg. Weight: 181.6lb. Body mass index: BMI: 31.2kg/m^2. Body surface area: BSA: 1.96m^2. Tables: Arterial flow: + +--------+--------+ Location V sys V ed + +--------+--------+ Right CCA - proximal 66.7cm/s 18.7cm/s + +--------+--------+ Right CCA - distal 77.7cm/s 29.8cm/s + +--------+--------+ Right ECA 86cm/s -------- + +--------+--------+ Right ICA - proximal 57.3cm/s 20.4cm/s + +--------+--------+ Right ICA - mid 60.7cm/s 27cm/s + +--------+--------+ Right ICA - distal 87.1cm/s 38.6cm/s + +--------+--------+ Right vertebral 55.1cm/s -------- + +--------+--------+ Left CCA - proximal 73.3cm/s 26.5cm/s + +--------+--------+ Left CCA - distal 68.9cm/s 23.7cm/s + +--------+--------+ Left ECA 70cm/s -------- + +--------+--------+ Left ICA - proximal 56.8cm/s 26.5cm/s + +--------+--------+ Left ICA - mid 81.1cm/s 29.8cm/s + +--------+--------+ Left ICA - distal 97.6cm/s 41.9cm/s + +--------+--------+ Left vertebral 45.8cm/s -------- + +--------+--------+ Velocity ratios: + + + + + + Right, V sys Right, V ed Left, V sys Left, V ed + + + + + + Max ICA/dist CCA 1.12 1.3 1.42 1.77 + + + + + + (Report amended ) Electronically signed by: Pascual Gonzalez [id number]
--- NOTE | 2018-09-17 13:58 | CA_ITS ---
PROCEDURE: 2-D M-mode and color Doppler study INDICATIONS FOR THE TEST: Chest pain COPDX Heart Murmur Tobacco SmokingEX Palpitations Fatigue Syncope EdemaX HypertensionXDiabetes Mellitus Rheumatic Fever SOBXDOE Obesity Hyperlipidemia Family History HD Additional History CAD,GERD PATIENT INFORMATION HEIGHT: 64 WEIGHT:182 GENDER: Female B/P:126/86 2-D/M-MODE INTERPRETATION: 2-D MEASUREMENTS OBSERVED VALUES IN CMS Right Ventricular Dimension (RVDd) 1.9 Interventricular Septum (Thickness)(IVsd) .7 Left Ventricular Internal Dimensions(LVIDd) 4.9 Left Ventricular Posterior Wall (Thickness)(LVPWd) .8 Aortic Root 3.3 Aortic Cusp Separation 1.5 Left Atrial Dimensions (LAD) 1.9 2D 1. Left atrium is mildly enlarged, left ventricle is normal size, mild concentric left ventricular hypertrophy, visually estimated ejection fraction 55% no regional wall motion abnormality. 2. The right atrium and right ventricle are normal size and contractility. 3. The aortic valve is thickened and calcified leaflet continue to display mobility. 4. The mitral and tricuspid valve leaflets are minimally thickened. 5. The pulmonic valve is poorly visualized. 6. No significant Pericardial effusion noted. DOPPLER INTERROGATION: Doppler interrogation of the aortic, mitral and tricuspid valvular presence of mild mitral and tricuspid regurgitation, tricuspid regurgitation jet velocity is inadequate for calculation of the right ventricular systolic pressure, grade 1 diastolic dysfunction seen without tissue Doppler evidence of raised left atrial pressure. CONCLUSION: 1. Mildly enlarged left atrium, normal left ventricular size, mild concentric left ventricular hypertrophy, visually estimated ejection fraction 55% with no regional wall motion abnormality, grade 1 diastolic dysfunction seen without tissue Doppler evidence of raised left atrial pressure. 2. Mild mitral and tricuspid regurgitation 3. Thickened pericardial effusion noted.
== END ==
PROVIDERS: PCP Nurse Practitioner Family; Visit Provider Nurse Practitioner Family
DX: G50.0 Trigeminal neuralgia (principal); R06.02 Shortness of breath; I10 Essential (primary) hypertension; E78.2 Mixed hyperlipidemia; R42 Dizziness and giddiness
CPT/HCPCS: 93306; 93880

== ENCOUNTER → 2018-11-12 09:51 | Outpatient (POV) | payer MEDICARE, MEDICAID, SELFPAY | PROVIDERS: Visit Provider Internal Medicine | DX: Z00.00 Encounter for general adult medical examination without abnormal findings (principal) ==

== ENCOUNTER → 2018-11-18 08:44 | Outpatient (POV) | payer MEDICARE, MEDICAID, SELFPAY | PROVIDERS: PCP Nurse Practitioner Family; Visit Provider Nurse Practitioner Family | DX: Z00.00 Encounter for general adult medical examination without abnormal findings (principal) ==

== ENCOUNTER → 2018-11-21 07:42 | Outpatient (CLI) | payer MEDICARE, MEDICAID, SELFPAY ==
--- NOTE | 2018-11-21 07:45 | CT_ITS ---
CT lung screening EXAM: CT LUNG LOW DOSE WO CONTRAST HISTORY: 40 pack-year smoking history, asymptomatic for lung cancer ITS.REASON: CURRENT TOBACOO USE ORDERING PHYSICIAN: Fawad Andrews MD PATIENT AGE: 63 years COMPARISON: 11/06/2017 TECHNIQUE: The exam was performed on a GE Light Speed [address] scanner using 2.90 mGy CTDI. A low dose helical CT CHEST was performed on a multi-detector scanner. All CT scans at the facility use one or more dose reduction, viz: automated exposure control, ma/kV adjustment per patient size (including targeted exams where dose is matched to indication, i.e. head), or iterative reconstruction technique. The LDCT was performed in a facility that meets the criteria for the screening program. Data regarding this exam was submitted to ACR which is an approved registry. The order for this exam indicates that it came as a result of a lung cancer screening counseling shard decision-making visit that included all the elements required of such a visit including smoking cessation. The radiologist interpreting this exam meets the CMS criteria for the LDCT lung cancer screening program. The exam is reported using the Lung-RADS classification scale and reported to the ACR registry. NOTE: This study was performed for the specific purposes of lung cancer screening and is not an alternative to diagnostic chest CT. RADIATION DOSE: CTDI vol(CT dose Index-volume) = 2.90mG DLP (Dose Length Product) = 104.99 mGcm FINDINGS: Coronary artery calcification and/or stents noted. Mild biapical scarring with some nodularity in right apex unchanged. Scattered areas of scarring noted. FINDINGS compatible with old granulomatous disease Chronic wedge compression changes of the thoracic spine with prior vertebral plasty at T9 IMPRESSION: 1. Lung RADS Category: 2, benign 2. Other findings: COPD, coronary artery calcifications, scarring RECOMMENDATIONS: 12 month LDCT follow-up
== END ==
PROVIDERS: PCP Internal Medicine Adolescent Medicine; Visit Provider Internal Medicine
DX: Z12.2 Encounter for screening for malignant neoplasm of respiratory organs (principal); Z87.891 Personal history of nicotine dependence

== ENCOUNTER → 2018-12-30 09:57 | Outpatient (POV) | payer MEDICARE, MEDICAID, SELFPAY ==
[2018-12-30 10:26] VITALS: BP 133/77; PULSE 101; RESP 18; O2SAT 98; BMI 31.7
--- NOTE | 2018-12-30 12:47 | P.CONS_ITS ---
[facility] Pain Management SOAP Note Subjective:: Patient is a very pleasant 63-year-old white female who presents today for discussion in regards to intrathecal pain pump. Patient and I discussed this last year however she was unsure if she wanted to move forward with it. Patient is continually having increased pain. She is suffers from degeneration along with compression fractures. She has had epidurals and kyphoplasty's in the past with no relief. She rates her pain an 8 out of 10. Patient is on [id number] anti-inflammatories which she has been on for over a year. She is also had physical therapy with no real relief. Patient's concern is in regards to her breathing. She has COPD which she has had for several years. She is not a narcotic candidate due to this. We discussed utilizing Prialt and her intrathecal pain pump and she is interested in moving forward with this. She is failed physical therapy, medications, anti-inflammatories and injection therapy along with intervention such as kyphoplasty for over a year. She is had this pain for over a year. ROS General: no recent weight change, no fever, no sleep disturbances Respiratory: no cough, no shortness of air, no recurring pulmonary infections Cardiovascular/Peripheral Vascular: No chest pain, No palpitations, no edema, no shortness of breath. Gastrointestinal: no incontinence, normal bowel movements reported Genitourinary: no incontinence Musculoskeletal: Back pain Psychiatric: normal mood/ affect Neurological: [denies weakness in extremities], [denies balance issues] Objective:: Physical Exam General: Alert and oriented x3, no acute distress, pleasant and cooperative, [on room air] Lungs: Resps E/U, Symmetrical chest expansion, Eyes: PERRL Musculoskeletal: Flexion and extension of lumbar spine somewhat guarded secondary to pain, deep tendon reflexes normal, strength in upper and lower extremities [5/5], [abnormal gait noted] Neurological: speech clear, protective 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 We will plan on utilizing Prialt in her trial to see if this is beneficial for her. I will follow-up with the patient after her trial reassess her symptoms at that time she is been instructed to call the office if she has any issues prior to her next appointment. Dr. Bautista has reviewed this note and agrees with this plan of care. This note was dictated using voice recognition software and may contain errors or omissions Pain Management Hx Components *Have you ever received a pneumonia vaccine?: Yes *Have you received a flu vaccine this season?: Yes - *Social History *Occupational Status:: other *Travel in the last 8 weeks: None
== END ==
PROVIDERS: PCP Internal Medicine Adolescent Medicine; Visit Provider Clinical Nurse Specialist Family Health
DX: M51.16 Intervertebral disc disorders with radiculopathy, lumbar region (principal); J44.9 Chronic obstructive pulmonary disease, unspecified; M84.48XD Pathological fracture, other site, subsequent encounter for fracture with routine healing
CPT/HCPCS: 99212

== ENCOUNTER → 2019-02-24 12:36 | Outpatient (POV) | payer MEDICARE, MEDICAID, SELFPAY | PROVIDERS: PCP Internal Medicine Adolescent Medicine; Visit Provider Nurse Practitioner Family | DX: Z00.00 Encounter for general adult medical examination without abnormal findings (principal) ==

== ENCOUNTER → 2019-02-24 15:54 | Outpatient (CLI) | payer MEDICARE, MEDICAID, SELFPAY ==
--- NOTE | 2019-02-24 | ECG_ITS ---
APPROVED REPORT Exam: Resting ECG HR:83 bpm ECG Measurements Heart Rate 83 AXES TN 136 P 35 QRSd 74 QRS 70 QT 360 T 64 QTc 423 <Conclusion> Normal sinus rhythm,Incomplete RBBB-Otherwise a Normal ECG Electronically signed by : Charly Mason, 02/25/2019 17:01:02
[2019-02-24 17:10] LABS: Basophils # 0.1 K/mm3 (0-0.2); Basophils % 0.6 % (0.1-2.0); Eosinophils # 0.2 K/mm3 (0.0-0.4); Eosinophils % 1.3 % (0.1-12.0); Hemoglobin 15.4 g/dL (12.2-16.2); Lymphocytes # 3.1 K/mm3 (0.7-4.5); Mean Corpuscular HGB Conc 31.5 g/dL (31.8-35.4); Mean Corpuscular Hemoglobin 31.6 pg (27.0-31.2); Mean Corpuscular Volume 100.4 fl (81-99); Mean Platelet Volume 8.7 fl (7.4-10.4); Monocytes % 7.6 % (1.7-9.3); Neutrophils # 8.5 K/mm3 (1.8-7.8); Neutrophils % 66.6 % (37.0-80.0); Platelet Count 281 K/mm3 (142-424); Red Blood Count 4.88 M/mm3 (4.20-5.40); Red Cell Distribution Width 13.6 % (11.5-17.5); White Blood Count 12.8 K/mm3 (4.8-10.8)
== END ==
PROVIDERS: Visit Provider Otolaryngology
DX: Z01.818 Encounter for other preprocedural examination (principal); J34.89 Other specified disorders of nose and nasal sinuses; L98.9 Disorder of the skin and subcutaneous tissue, unspecified; D49.1 Neoplasm of unspecified behavior of respiratory system
CPT/HCPCS: 36415; 85025; 93005

== ENCOUNTER → 2019-02-27 11:05 | Outpatient (CLI) | payer MEDICARE, MEDICAID, SELFPAY ==
--- NOTE | 2019-02-27 11:17 | XR_ITS ---
PROCEDURE: XR CHEST 2V CLINICAL HISTORY: SOA,COUGH Cough, congestion, pneumonia, smoker the COMPARISON: CXR CHEST(2 VIEWS-NOT PORTABLE) from 04/28/2015 CXR CHEST(2 VIEWS-NOT PORTABLE) from 11/25/[address] chest w con from 11/06/2017 FINDINGS: The cardiomediastinal silhouette and pulmonary vascularity are within normal limits. COPD. No lobar consolidation or collapse. Kyphosis with wedge compression changes of T8, T9, T10, and T11. There are post kyphoplasty changes at T10. IMPRESSION: 1. COPD. 2. Thoracic kyphosis with multiple wedge compression changes Dictated by: Isidro Perez MD 02/27/2019 14:27 Electronically signed by Isidro Perez MD in [place] 02/27/2019 14:27
[2019-02-27 11:21] LABS: Basophils # 0.1 K/mm3 (0-0.2); Basophils % 0.4 % (0.1-2.0); Eosinophils # 0.1 K/mm3 (0.0-0.4); Eosinophils % 0.6 % (0.1-12.0); Hematocrit 45.3 % (37.0-47.0); Hemoglobin 14.3 g/dL (12.2-16.2); Lymphocytes # 3.4 K/mm3 (0.7-4.5); Lymphocytes % 31.8 % (10-50); Mean Corpuscular HGB Conc 31.6 g/dL (31.8-35.4); Mean Corpuscular Hemoglobin 31.8 pg (27.0-31.2); Mean Corpuscular Volume 100.8 fl (81-99); Mean Platelet Volume 7.6 fl (7.4-10.4); Monocytes # 0.6 K/mm3 (0.1-1.0); Monocytes % 5.4 % (1.7-9.3); Neutrophils # 6.6 K/mm3 (1.8-7.8); Neutrophils % 61.8 % (37.0-80.0); Platelet Count 329 K/mm3 (142-424); Red Blood Count 4.49 M/mm3 (4.20-5.40); Red Cell Distribution Width 13.3 % (11.5-17.5); White Blood Count 10.7 K/mm3 (4.8-10.8)
[2019-02-27 11:55] LABS: Alanine Aminotransferase 21 U/L (12-78); Albumin Level 3.4 gm/dL (3.4-5.0); Albumin/Globulin Ratio 0.9 (1.1-1.8); Alkaline Phosphatase 78 U/L (46-116); Anion Gap 14.2 mEq/L (5-15); Aspartate Amino Transferase 16 U/L (15-37); Bilirubin,Total 0.5 mg/dL (0.2-1.0); Blood Urea Nitrogen 14 mg/dL (7-18); Calcium 8.5 mg/dL (8.5-10.1); Carbon Dioxide 26 mmol/L (21.0-32.0); Chloride 103 mmol/L (98-107); Creatinine,Serum 1.02 mg/dL (0.55-1.02); Estimated Glomerular Filt Rate 55 ml/min (>60); GFR (African American) 66 ML/MIN (>60); Globulin 3.7 gm/dl (1.3-3.2); Glucose 105 mg/dL (74-106); Potassium 4.2 mmoL/L (3.5-5.1); Sodium 139 mmol/L (136-145); Total Protein,Serum 7.1 gm/dL (6.4-8.2)
== END ==
PROVIDERS: Visit Provider Nurse Practitioner Family
DX: R06.02 Shortness of breath (principal); R05 Cough
CPT/HCPCS: 36415; 71046; 80053; 85025

== ENCOUNTER → 2019-06-02 10:51 | Outpatient (POV) | payer MEDICARE, MEDICAID, SELFPAY | PROVIDERS: Visit Provider Nurse Practitioner Family | DX: Z00.00 Encounter for general adult medical examination without abnormal findings (principal) ==

== ENCOUNTER → 2019-06-05 07:37 | Outpatient (CLI) | payer MEDICARE, MEDICAID, SELFPAY ==
[2019-06-05 13:42] LABS: Basophils # 0.1 K/mm3 (0-0.2); Basophils % 0.8 % (0.1-2.0); Eosinophils # 0.3 K/mm3 (0.0-0.4); Eosinophils % 3.5 % (0.1-12.0); Hematocrit 44.1 % (37.0-47.0); Hemoglobin 14.3 g/dL (12.2-16.2); Lymphocytes # 3.1 K/mm3 (0.7-4.5); Lymphocytes % 43.3 % (10-50); Mean Corpuscular HGB Conc 32.4 g/dL (31.8-35.4); Mean Corpuscular Volume 95.7 fl (81-99); Mean Platelet Volume 7.5 fl (7.4-10.4); Monocytes # 0.3 K/mm3 (0.1-1.0); Monocytes % 3.8 % (1.7-9.3); Neutrophils # 3.4 K/mm3 (1.8-7.8); Neutrophils % 48.5 % (37.0-80.0); Platelet Count 342 K/mm3 (142-424); Red Blood Count 4.61 M/mm3 (4.20-5.40); Red Cell Distribution Width 13.7 % (11.5-17.5); White Blood Count 7.1 K/mm3 (4.8-10.8)
[2019-06-05 14:00] LABS: Alanine Aminotransferase 20 U/L (9-52); Albumin Level 3.7 g/dL (3.4-5.0); Albumin/Globulin Ratio 1.2 (1.1-1.8); Alkaline Phosphatase 77 U/L (46-116); Anion Gap 13.3 mEq/L (5-15); Aspartate Amino Transferase 15 U/L (15-37); Bilirubin,Total 0.5 mg/dL (0.2-1.0); Blood Urea Nitrogen 16 mg/dL (7-18); Carbon Dioxide 31 mmol/L (21.0-32.0); Chloride 105 mmol/L (98-107); Chol/HDL Ratio 3.5 (1-3.5); Cholesterol 127 mg/dL (140-200); Creatinine,Serum 0.99 mg/dL (0.55-1.02); Estimated Glomerular Filt Rate 57 ml/min (>60); GFR (African American) 69 ML/MIN (>60); Globulin 3.1 gm/dl (1.3-3.2); Glucose 99 mg/dL (74-106); HDL Cholesterol 36 mg/dL (29-89); LDL Cholesterol 53 mg/dL (0-130); Potassium 3.3 mmoL/L (3.5-5.1); Sodium 146 mmol/L (137-145); Total Protein,Serum 6.8 g/dL (6.4-8.2); Triglycerides 190 mg/dL (30-200); VLDL Cholesterol 38 mg/dL (0-40)
[2019-06-06 10:51] LABS: Vitamin D 25 Hydroxy 32.6 ng/mL (30.0-100.0)
== END ==
PROVIDERS: Visit Provider Nurse Practitioner Family
DX: I10 Essential (primary) hypertension (principal); E78.2 Mixed hyperlipidemia; E55.9 Vitamin D deficiency, unspecified; J41.1 Mucopurulent chronic bronchitis
CPT/HCPCS: 36415; 80053; 80061; 82652; 85025

== ENCOUNTER → 2019-07-02 08:09 | Outpatient (CLI) | payer MEDICARE, MEDICAID, SELFPAY ==
[2019-07-02 14:45] LABS: Anion Gap 11.9 mEq/L (5-15); Blood Urea Nitrogen 14 mg/dl (7-17); Calcium 9.6 mg/dl (8.4-10.2); Carbon Dioxide 28 mmol/L (22.0-30.0); Chloride 105 mmol/L (98-107); Estimated Glomerular Filt Rate 63 ml/min (>60); GFR (African American) 77 ML/MIN (>60); Glucose 110 mg/dl (74-100); Potassium 3.9 mmoL/L (3.5-5.1); Sodium 141 mmol/L (136-145)
== END ==
PROVIDERS: Visit Provider Internal Medicine Adolescent Medicine
DX: E87.6 Hypokalemia (principal)
CPT/HCPCS: 36415; 80048

== ENCOUNTER → 2019-09-11 09:37 | Outpatient (CLI) | payer MEDICARE, MEDICAID, SELFPAY ==
--- NOTE | 2019-09-11 09:40 | MM_ITS ---
PROCEDURE: MM DIG SCREENING MAMM BI W/CAD Digital Breast Tomosynthesis Included CLINICAL INDICATION: SCREENING There is no personal or family history of breast cancer. COMPARISON: DMDXUAVL DIG MAMM-DX UNI A/VWS-LT W/CAD from 06/20/2016 [facility] MM Dig screening mamm BI w/CAD from 06/25/2017 [facility] MM Dig screening mamm BI w/CAD from 08/09/2018 TECHNIQUE: Standard CC and MLO images and 3D Tomosynthesis was obtained. R2 CAD reviewed. FINDINGS: The breasts are composed primarily of fat with minimal scattered fibroglandular densities in each breast. There are few benign-appearing microcalcifications in each breast. There is a stable nodular density deep within the left breast with a couple of associated microcalcifications and this was marked with a mole marker on the previous exam. However in addition there is somewhat ill-defined nodular density lower central portion left breast not definitely seen previously. This is only definitely seen on the CC view and CC tomogram views. This could in fact be secondary to a small mole undersurface of the breast but recommend the patient return for spot compression CC view and ultrasound if this proves to be a true lesion. IMPRESSION: Fatty type breast parenchyma with possible developing new parenchymal lesion left breast versus a mole. BI-RAD Category: 0 Need Additional Imaging Evaluation FOLLOW-UP: IMM Immediate Follow-up Recommended (A letter has been sent to the patient regarding results of the study.) Dictated by: Dr. Severino Norris MD 09/12/2019 08:[address] Severino Norris MD in [place] 09/12/2019 08:46
== END ==
PROVIDERS: PCP Internal Medicine Adolescent Medicine; Visit Provider Nurse Practitioner Family
DX: Z12.31 Encounter for screening mammogram for malignant neoplasm of breast (principal)
CPT/HCPCS: 77063; 77067

== ENCOUNTER → 2019-12-01 07:19 | Outpatient (CLI) | payer MEDICARE, MEDICAID, SELFPAY ==
[2019-12-01 15:17] LABS: Alanine Aminotransferase 18 U/L (12-78); Albumin/Globulin Ratio 1.4 (1.1-1.8); Alkaline Phosphatase 98 U/L (38-126); Anion Gap 11.7 mEq/L (5-15); Aspartate Amino Transferase 24 U/L (14-36); Basophils % 0.5 % (0.1-2.0); Bilirubin,Total 0.5 mg/dl (0.2-1.3); Blood Urea Nitrogen 14 mg/dl (7-17); Calcium 9.8 mg/dl (8.4-10.2); Carbon Dioxide 30 mmol/L (22.0-30.0); Chloride 104 mmol/L (98-107); Chol/HDL Ratio 3.8 (1-3.5); Cholesterol 151 mg/dl (140-200); Eosinophils # 0.2 K/mm3 (0.0-0.4); Eosinophils % 2.9 % (0.1-12.0); Estimated Glomerular Filt Rate 72 ml/min (>60); GFR (African American) 88 ML/MIN (>60); Globulin 2.8 g/dL (1.3-3.2); Glucose 118 mg/dl (74-100); HDL Cholesterol 40 mg/dl (40-60); Hematocrit 45.2 % (37.0-47.0); Hemoglobin 15.2 g/dL (12.2-16.2); Lymphocytes # 3.7 K/mm3 (0.7-4.5); Lymphocytes % 56.9 % (10-50); Mean Corpuscular HGB Conc 33.7 g/dL (31.8-35.4); Mean Corpuscular Hemoglobin 32.1 pg (27.0-31.2); Mean Corpuscular Volume 95.1 fl (81-99); Mean Platelet Volume 7.7 fl (7.4-10.4); Monocytes # 0.2 K/mm3 (0.1-1.0); Monocytes % 3.3 % (1.7-9.3); Neutrophils # 2.3 K/mm3 (1.8-7.8); Neutrophils % 36.5 % (37.0-80.0); Platelet Count 359 K/mm3 (142-424); Potassium 3.7 mmoL/L (3.5-5.1); Red Blood Count 4.75 M/mm3 (4.20-5.40); Red Cell Distribution Width 13.4 % (11.5-17.5); Sodium 142 mmol/L (136-145); Total Protein,Serum 6.8 g/dl (6.3-8.2); Triglycerides 306 mg/dl (30-150); VLDL Cholesterol 61 mg/dL (0-40); White Blood Count 6.4 K/mm3 (4.8-10.8)
[2019-12-01 15:21] LABS: MANUAL DIFFERENTIAL MANUAL DIFFERENTIAL (MANUAL DIFF)
[2019-12-01 15:28] LABS: Direct LDL Cholesterol 73.16 mg/dL (100-129)
[2019-12-01 15:33] LABS: 25-OH Vitamin D, Total 30.7 ng/mL (30-100)
[2019-12-01 15:34] LABS: Lymphocytes % 57 % (10-50); Monocytes % 4 % (2-9); Neutrophils % 39 % (42-76); Platelet Estimate Normal; RBC Morphology Normal; Total Cells Counted 100
[2019-12-01 15:48] LABS: Thyroid Stimulating Hormone 2.85 uIU/mL (0.465-4.68)
== END ==
PROVIDERS: Visit Provider Nurse Practitioner Family
DX: E78.2 Mixed hyperlipidemia (principal); I10 Essential (primary) hypertension; R63.5 Abnormal weight gain; J41.1 Mucopurulent chronic bronchitis; M81.0 Age-related osteoporosis without current pathological fracture; E55.9 Vitamin D deficiency, unspecified; R73.9 Hyperglycemia, unspecified
CPT/HCPCS: 36415; 80053; 80061; 82306; 83036; 84443; 85007; 85025

== ENCOUNTER → 2019-12-18 09:17 | Outpatient (CLI) | payer MEDICARE, MEDICAID, SELFPAY ==
--- NOTE | 2019-12-18 09:21 | CT_ITS ---
PROCEDURE: CT LUNG SCREENING CLINICAL INDICATION: H/O NICOTINE DEPENDENCE Former smoker Quit 1 year ago 40 pack year smoking history Prior 11/21/18 COMPARISON: CT CHESTW CT chest w con from 11/06/[address] lung screening from 11/21/2018 TECHNIQUE: The exam was performed on a [employer] Speed [address] scanner using 2.90 mGy CTDI. A low dose helical CT CHEST was performed on a multi-detector scanner. All CT scans at the facility use one or more dose reduction, viz: automated exposure control, ma/kV adjustment per patient size (including targeted exams where dose is matched to indication, i.e. head), or iterative reconstruction technique. The LDCT was performed in a facility that meets the criteria for the screening program. Data regarding this exam was submitted to ACR which is an approved registry. The order for this exam indicates that it came as a result of a lung cancer screening counseling shard decision-making visit that included all the elements required of such a visit including smoking cessation. The radiologist interpreting this exam meets the CMS criteria for the LDCT lung cancer screening program. The exam is reported using the Lung-RADS classification scale and reported to the ACR registry. NOTE: This study was performed for the specific purposes of lung cancer screening and is not an alternative to diagnostic chest CT. RADIATION DOSE: CTDI vol(CT dose Index-volume) = 2.90mG DLP (Dose Length Product) = 111.25 mGcm FINDINGS: Changes of COPD with scattered areas of scarring with some nodularity in the right lung apex not significantly changed. Mild diffuse bronchial thickening minimal nodularity noted in the left lung base posterior laterally image 62 series 4 measuring 6 mm possibly due to an area of scarring not readily apparent on the previous study. OTHER FINDINGS: Diffuse coronary artery calcification. Status post prior vertebroplasty at T9. Wedge compression changes are present at T7-T8 T9 and T10 which do not appear significantly changed. IMPRESSION: Lung-RADS Category 3 probably benign. 6 mm nodule left lung base. Recommend six-month follow-up Follow-up [address] Chest without and with contrast. Dictated by: Isidro Perez MD 12/29/2019 11:56 Isidro Perez MD in [place] 12/29/2019 11:56
--- NOTE | 2019-12-18 09:21 | XR_ITS ---
PROCEDURE: XR DEXA AXIAL SKELETON CLINICAL HISTORY: OSTEOPOROSIS COMPARISON: CR DEXAAX XR DEXA axial skeleton from 10/15/2017 FINDINGS: The right hip BMD is 0.622 with a T-score of -2.0. The left hip BMD is 0.581 with a T-score of -2.4. The lumbar spine BMD is 0.772 with a T-score of -2.5. Previously the lowest bone density was in the right femoral neck and had a T-score of -3.1. IMPRESSION: This patient is considered osteoporotic according to the World Health Organization criteria. Fracture risk is high. Treatment is advised. Based on these results a follow-up exam is recommended in 1 year. Dictated by: Isidro Perze MD 12/19/2019 08:01 Isidro Perez MD in [place] 12/19/2019 08:01
== END ==
PROVIDERS: PCP Internal Medicine Adolescent Medicine; Visit Provider Internal Medicine Adolescent Medicine
DX: Z87.891 Personal history of nicotine dependence (principal); Z12.2 Encounter for screening for malignant neoplasm of respiratory organs
CPT/HCPCS: 77080

== ENCOUNTER → 2020-06-17 08:01 | Outpatient (CLI) | payer MEDICARE, MEDICAID, SELFPAY ==
[2020-06-17 14:07] LABS: Chloride 105 mmol/L (98-107); Sodium 138 mmol/L (136-145)
[2020-06-17 14:09] LABS: Alanine Aminotransferase 21 U/L (12-78); Aspartate Amino Transferase 27 U/L (14-36); Blood Urea Nitrogen 16 mg/dl (7-17); Estimated Glomerular Filt Rate 63 ml/min (>60); GFR (African American) 76 ML/MIN (>60)
[2020-06-17 14:10] LABS: Albumin Level 4.3 g/dl (3.5-5.0); Albumin/Globulin Ratio 1.3 (1.1-1.8); Alkaline Phosphatase 97 U/L (38-126); Bilirubin,Total 0.6 mg/dl (0.2-1.3); Calcium 9.7 mg/dl (8.4-10.2); Carbon Dioxide 29 mmol/L (22.0-30.0); Chol/HDL Ratio 4.1 (1-3.5); Cholesterol 156 mg/dl (140-200); Globulin 3.2 g/dL (1.3-3.2); Glucose 108 mg/dl (74-100); HDL Cholesterol 38 mg/dl (40-60); Total Protein,Serum 7.5 g/dl (6.3-8.2); Triglycerides 288 mg/dl (30-150); VLDL Cholesterol 58 mg/dL (0-40)
[2020-06-17 14:22] LABS: Direct LDL Cholesterol 71.63 mg/dL (100-129)
[2020-06-17 14:26] LABS: Basophils # 0.1 K/mm3 (0-0.2); Basophils % 1.3 % (0.1-2.0); Eosinophils # 0.2 K/mm3 (0.0-0.4); Hematocrit 47.1 % (37.0-47.0); Hemoglobin 15.1 g/dL (12.2-16.2); Lymphocytes # 4.2 K/mm3 (0.7-4.5); Lymphocytes % 53.6 % (10-50); Mean Corpuscular Hemoglobin 30.6 pg (27.0-31.2); Mean Corpuscular Volume 95.7 fl (81-99); Mean Platelet Volume 7.3 fl (7.4-10.4); Monocytes # 0.3 K/mm3 (0.1-1.0); Monocytes % 3.6 % (1.7-9.3); Neutrophils % 38.5 % (37.0-80.0); Platelet Count 287 K/mm3 (142-424); Red Blood Count 4.93 M/mm3 (4.20-5.40); Red Cell Distribution Width 13.9 % (11.5-17.5); White Blood Count 7.8 K/mm3 (4.8-10.8)
[2020-06-17 14:29] LABS: MANUAL DIFFERENTIAL MANUAL DIFFERENTIAL (MANUAL DIFF)
[2020-06-17 14:31] LABS: Hemoglobin A1C 5.9 % (4.0-6.0)
[2020-06-17 14:32] LABS: 25-OH Vitamin D, Total 29.4 ng/mL (30-100)
[2020-06-17 15:48] LABS: Lymphocytes % 49 % (10-50); Monocytes % 13 % (2-9); Neutrophils % 38 % (42-76); Total Cells Counted 100
[2020-06-17 15:49] LABS: Platelet Estimate Normal; RBC Morphology Normal
== END ==
PROVIDERS: Visit Provider Nurse Practitioner Family
DX: I10 Essential (primary) hypertension (principal); R73.03 Prediabetes; E55.9 Vitamin D deficiency, unspecified; E78.2 Mixed hyperlipidemia; J41.1 Mucopurulent chronic bronchitis
CPT/HCPCS: 36415; 80053; 80061; 82306; 83036; 85007; 85025

== ENCOUNTER → 2020-06-28 13:53 | Outpatient (CLI) | payer MEDICARE, MEDICAID, SELFPAY ==
[2020-06-28 15:15] VITALS: PULSE 80; PULSE 84
[2020-06-28 20:58] LABS: Coronavirus 19 IgG Antibody Negative (Negative); Coronavirus 19 IgM Antibody Negative (Negative)
== END ==
PROVIDERS: PCP Internal Medicine Adolescent Medicine; Visit Provider Internal Medicine Pulmonary Disease
DX: Z01.818 Encounter for other preprocedural examination (principal); Z11.52 Encounter for screening for COVID-19; J44.9 Chronic obstructive pulmonary disease, unspecified
CPT/HCPCS: 36415; 86328; 94060; 94618; 94640; 94726; 94729

== ENCOUNTER → 2020-07-01 19:56 | Outpatient (CLI) | payer MEDICARE, MEDICAID, SELFPAY | PROVIDERS: PCP Internal Medicine Adolescent Medicine; Visit Provider Internal Medicine Adolescent Medicine | DX: G47.33 Obstructive sleep apnea (adult) (pediatric) (principal); G47.00 Insomnia, unspecified; I10 Essential (primary) hypertension | CPT/HCPCS: 95810 ==

== ENCOUNTER → 2020-07-07 14:58 | Outpatient (CLI) | payer MEDICARE, MEDICAID, SELFPAY ==
--- NOTE | 2020-07-07 15:08 | CT_ITS ---
PROCEDURE: CT LUNG SCREENING CLINICAL INDICATION: H/O NICOTINE DEPENDENCE Current smoker, quit <1 year ago 30 pack year smoking history Copd, emphysema Prior on pacs COMPARISON: CT CT LUNG SCREENING from 12/18/2019 TECHNIQUE: The exam was performed on a GE Markafoni Speed [address] scanner using 2.90 mGy CTDI. A low dose helical CT CHEST was performed on a multi-detector scanner. All CT scans at the facility use one or more dose reduction, viz: automated exposure control, ma/kV adjustment per patient size (including targeted exams where dose is matched to indication, i.e. head), or iterative reconstruction technique. The LDCT was performed in a facility that meets the criteria for the screening program. Data regarding this exam was submitted to ACR which is an approved registry. The order for this exam indicates that it came as a result of a lung cancer screening counseling shard decision-making visit that included all the elements required of such a visit including smoking cessation. The radiologist interpreting this exam meets the CMS criteria for the LDCT lung cancer screening program. The exam is reported using the Lung-RADS classification scale and reported to the ACR registry. NOTE: This study was performed for the specific purposes of lung cancer screening and is not an alternative to diagnostic chest CT. RADIATION DOSE: CTDI vol(CT dose Index-volume) = 2.90mG DLP (Dose Length Product) = 107.33 mGcm FINDINGS: COPD with scattered areas of scarring. No change in the nodular appearance in the right lung apex. Previously described nodularity in the left lung base is less apparent and may have been due to an area of atelectasis. No suspicious nodules. There is mild diffuse bronchial thickening OTHER FINDINGS: Coronary artery calcifications and/or stents. Prior kyphoplasty at T9. Stable wedge compression changes T7 T8-T9 and T10. IMPRESSION: Lung-RADS Category 2 Benign Appearance or Behavior Follow-up: Continue annual screening with LDCT in 12 months Dictated by: Isidro Perez MD 07/11/2020 09:17 Isidro Perez MD in [place] 07/11/2020 09:17
== END ==
PROVIDERS: PCP Internal Medicine Adolescent Medicine; Visit Provider Internal Medicine Adolescent Medicine
DX: Z87.891 Personal history of nicotine dependence (principal); Z12.2 Encounter for screening for malignant neoplasm of respiratory organs
CPT/HCPCS: 71271

== ENCOUNTER → 2020-12-02 09:14 | Outpatient (CLI) | payer MEDICARE, MEDICAID, SELFPAY ==
[2020-12-02 09:35] LABS: Blood Urea Nitrogen 15 mg/dl (7-17); Estimated Glomerular Filt Rate 56 ml/min (>60); GFR (African American) 68 ML/MIN (>60)
--- NOTE | 2020-12-02 09:36 | MR_ITS ---
PROCEDURE: MR HEAD/BRAIN WO/W CON CLINICAL INDICATION: VERTIGO, ABNORMAL TANDEM GAIT COMPARISON: No exams were available for comparison TECHNIQUE: Routine multiplanar multi echo sequences are performed without and with gadolinium enhancement. FINDINGS: No evidence of acute infarction with no restricted diffusion apparent. No midline shift, mass effect, intracranial hemorrhage, or hydrocephalus. The cerebellopontine angles and cerebellum have an unremarkable appearance. There is mild increase in T2 signal involving the trina on both sides which does not show restricted diffusion or enhancement. There are scattered small T2 white matter hyperintensities as well as the small T2 hyperintensities in the right external capsule anteriorly. No enhancing lesions are evident. The hippocampal gyri have an unremarkable appearance. There is partial empty sella as a normal variant. The optic chiasm, corpus callosum, and craniocervical junction have an unremarkable appearance. No mastoid effusion or sinus air-fluid level. There is mild mucosal thickening of the maxillary and ethmoid sinuses. IMPRESSION: No acute intracranial finding. Increased T2 signal within the trina bilaterally which may be due to ischemic gliotic change from microvascular disease. Periventricular T2 hyperintensities are also present suggesting ischemic gliotic change from microvascular disease. Dictated by: Isidro Perez MD 12/03/2020 09:07 Isidro Perez MD in [place] 12/03/2020 09:07
== END ==
PROVIDERS: PCP Internal Medicine Adolescent Medicine; Visit Provider Nurse Practitioner Family
DX: R42 Dizziness and giddiness (principal); N28.9 Disorder of kidney and ureter, unspecified; H55.00 Unspecified nystagmus; R26.9 Unspecified abnormalities of gait and mobility
CPT/HCPCS: 36415; 70553; 82565; 84520; A9576

== ENCOUNTER → 2021-02-10 08:23 | Outpatient (CLI) | payer MEDICARE, MEDICAID, SELFPAY ==
[2021-02-10 15:03] LABS: Basophils # 0.1 K/mm3 (0-0.2); Eosinophils # 0.2 K/mm3 (0.0-0.4); Eosinophils % 2.7 % (0.1-12.0); Hematocrit 47.1 % (37.0-47.0); Hemoglobin 15.5 g/dL (12.2-16.2); Lymphocytes # 3.4 K/mm3 (0.7-4.5); Lymphocytes % 49.5 % (10-50); Mean Corpuscular Hemoglobin 32.6 pg (27.0-31.2); Mean Corpuscular Volume 98.9 fl (81-99); Mean Platelet Volume 8.4 fl (7.4-10.4); Monocytes # 0.3 K/mm3 (0.1-1.0); Monocytes % 4.3 % (1.7-9.3); Neutrophils # 2.9 K/mm3 (1.8-7.8); Neutrophils % 42.5 % (37.0-80.0); Platelet Count 341 K/mm3 (142-424); Red Blood Count 4.76 M/mm3 (4.20-5.40); Red Cell Distribution Width 13.2 % (11.5-17.5); White Blood Count 6.9 K/mm3 (4.8-10.8)
[2021-02-10 15:08] LABS: Alanine Aminotransferase 19 U/L (12-78); Albumin Level 4.2 g/dl (3.5-5.0); Albumin/Globulin Ratio 1.4 (1.1-1.8); Alkaline Phosphatase 76 U/L (38-126); Aspartate Amino Transferase 24 U/L (14-36); Bilirubin,Total 0.5 mg/dl (0.2-1.3); Blood Urea Nitrogen 16 mg/dl (7-17); Calcium 9.4 mg/dl (8.4-10.2); Carbon Dioxide 30 mmol/L (22.0-30.0); Chloride 103 mmol/L (98-107); Chol/HDL Ratio 4.1 (1-3.5); Cholesterol 153 mg/dl (140-200); Estimated Glomerular Filt Rate 72 ml/min (>60); GFR (African American) 87 ML/MIN (>60); Globulin 2.9 g/dL (1.3-3.2); Glucose 102 mg/dl (74-100); HDL Cholesterol 37 mg/dl (40-60); Sodium 140 mmol/L (136-145); Total Protein,Serum 7.1 g/dl (6.3-8.2); Triglycerides 289 mg/dl (30-150); VLDL Cholesterol 58 mg/dL (0-40)
[2021-02-10 15:19] LABS: Direct LDL Cholesterol 73.22 mg/dL (100-129)
[2021-02-10 15:25] LABS: 25-OH Vitamin D, Total 47.5 ng/mL (30-100)
[2021-02-10 15:58] LABS: Vitamin B12 621 pg/mL (239-931)
[2021-02-10 17:46] LABS: Hemoglobin A1C 5.6 % (4.0-6.0)
== END ==
PROVIDERS: Visit Provider Nurse Practitioner Family
DX: R42 Dizziness and giddiness (principal); J41.1 Mucopurulent chronic bronchitis; I10 Essential (primary) hypertension; E78.2 Mixed hyperlipidemia; R73.03 Prediabetes; E55.9 Vitamin D deficiency, unspecified; M81.0 Age-related osteoporosis without current pathological fracture
CPT/HCPCS: 36415; 80053; 80061; 82306; 82607; 83036; 85025

== ENCOUNTER → 2021-03-29 07:56 | Outpatient (CLI) | payer MEDICARE, MEDICAID, SELFPAY ==
--- NOTE | 2021-03-29 08:00 | XR_ITS ---
PROCEDURE: XR DEXA AXIAL SKELETON CLINICAL HISTORY: AGE RELATED OSTEOPOROSIS WITHOUT CURRENT PATHOLOGIC FX COMPARISON: CR DEXAAX XR DEXA axial skeleton from 10/15/2017 FINDINGS: The right hip BMD is 0.517 with a T-score of -3.0 . The left hip BMD is 0.553 with a T-score of -2.7. The lumbar spine BMD is 0.823 with a T-score of -2.0. Previously the lowest density was in the right femoral neck with a T-score of -3.1 IMPRESSION: This patient is considered osteoporotic according to the World Health Organization criteria. Fracture risk is high. Treatment is advised. Based on these results a follow-up exam is recommended in 1 year. Dictated by: Isidro Perez MD 03/29/2021 14:16 Isidro Perez MD in [place] 03/29/2021 14:16
--- NOTE | 2021-03-29 08:00 | MM_ITS ---
PROCEDURE INFORMATION: Exam: MG Bilateral Screening 3D Mammography Exam date and time: 03/29/2021 8:00 AM Age: 65 years old Clinical indication: Encounter for screening mammogram for malignant neoplasm of breast TECHNIQUE: Imaging protocol: Bilateral screening tomosynthesis and 2D mammography including computer-aided detection (CAD) when performed. COMPARISON: 1. MG MM DIG SCREENING MAMM BI W/CAD 09/11/2019 10:07 AM 2. MG [facility] MM Dig screening mamm BI w/CAD 08/09/2018 3:08 PM 3. MG [facility] MM Dig screening mamm BI w/CAD 06/25/2017 11:14 AM FINDINGS: MAMMOGRAPHY: Breast composition: There are scattered areas of fibroglandular density. Mass: No suspicious masses. Architectural distortion: No suspicious distortion. Calcifications: No suspicious calcifications. Asymmetric density: None. Skin thickening: None. Axillary adenopathy: None. IMPRESSION: No mammographic evidence of malignancy. Annual screening is recommended unless otherwise clinically indicated. ASSESSMENT: BI-RADS Category 1: Negative
== END ==
PROVIDERS: PCP Internal Medicine Adolescent Medicine; Visit Provider Nurse Practitioner Family
DX: Z12.31 Encounter for screening mammogram for malignant neoplasm of breast (principal); M81.0 Age-related osteoporosis without current pathological fracture
CPT/HCPCS: 77063; 77067; 77080

== ENCOUNTER → 2021-06-21 09:13 | Outpatient (CLI) | payer MEDICARE, MEDICAID, SELFPAY ==
[2021-06-23 07:12] LABS: Alpha-1-Antitrypsin 163 mg/dL (101-187)
== END ==
PROVIDERS: Visit Provider Internal Medicine Pulmonary Disease
DX: J44.9 Chronic obstructive pulmonary disease, unspecified (principal)
CPT/HCPCS: 36415; 82103

== ENCOUNTER → 2021-07-20 12:42 | Outpatient (CLI) | payer MEDICARE, MEDICAID, SELFPAY ==
[2021-07-20 13:45] VITALS: PULSE 83; PULSE 90
--- NOTE | 2021-07-20 14:36 | CT_ITS ---
FINAL REPORT TECHNIQUE: Axial images were obtained from the lung apex to the mid abdomen by computed tomography. Low-dose protocol was utilized. CLINICAL HISTORY: lung cancer screening COMPARISON: 07/07/2020 and 11/21/2018 FINDINGS: CHEST CT LOW DOSE CTDI vol (mGy): 2.90 DLP (mGy-cm): 100.55 There is no axillary adenopathy. There is no hilar or mediastinal adenopathy. The heart is normal in size. There is no pericardial or pleural effusion. Note is made of mild scarring and mild emphysema. There are stable, less than 1 cm nodules in the right lung apex. No new mass or nodule is identified. Several calcified granulomas are seen in the right lung. Limited images of the upper abdomen are unremarkable. IMPRESSION: Stable nodules in the right lung apex. Lung RADS category 1. Recommend 12 month follow-up low-dose chest CT. Reviewed, Interpreted and Dictated by Nemesio Sevilla III, MD Transcribed by Lauren Benson Authenticated by Nemesio Sevilla III, MD on 07/20/2021 04:09:[address] [facility]
== END ==
PROVIDERS: PCP Internal Medicine Adolescent Medicine; Visit Provider Internal Medicine Pulmonary Disease
DX: J44.9 Chronic obstructive pulmonary disease, unspecified (principal); F17.210 Nicotine dependence, cigarettes, uncomplicated
CPT/HCPCS: 71271; 94060; 94618; 94640; 94727; 94729; 94762

== ENCOUNTER 2021-08-15 12:48 | Outpatient (RCR) | payer MEDICARE, MEDICAID, SELFPAY | END 2021-10-11 14:00 | disposition home or self-care (01) | LOC: PT 12:48 | PROVIDERS: Visit Provider Internal Medicine Pulmonary Disease | DX: J44.9 Chronic obstructive pulmonary disease, unspecified (principal) | CPT/HCPCS: 94626 ==

== ENCOUNTER 2022-06-10 09:25 | Emergency (ER) | payer MEDICARE, MEDICAID, SELFPAY ==
[2022-06-10] VITALS (9 sets, daily range): BP systolic 118–151; BP diastolic 61–100; PULSE 62–92; RESP 16; TEMP 36.7–36.8; O2SAT 92–98; BMI 34.2
--- NOTE | 2022-06-10 09:53 | PC.NURSE ---
upon arriving to room, pt placed on spo2 monitor, O2 sats 90%, placed 2L nc on pt.
[2022-06-10 10:07] LABS: Chloride 106 mmol/L (98-107); Potassium 4.9 mmoL/L (3.5-5.1); Sodium 142 mmol/L (136-145)
[2022-06-10 10:10] LABS: Alanine Aminotransferase 19 U/L (12-78); Albumin Level 4.4 g/dl (3.5-5.0); Albumin/Globulin Ratio 1.3 (1.1-1.8); Alkaline Phosphatase 82 U/L (38-126); Amylase 89 U/L (30-110); Anion Gap 6.9 mEq/L (5-15); Aspartate Amino Transferase 24 U/L (14-36); Basophils # 0.1 K/mm3 (0-0.2); Basophils % 1.2 % (0.1-2.0); Bilirubin,Total 0.5 mg/dl (0.2-1.3); Blood Urea Nitrogen 15 mg/dl (7-17); Calcium 9.8 mg/dl (8.4-10.2); Carbon Dioxide 34 mmol/L (22.0-30.0); Creatinine Clearance Estimated 75 mL/min (50-200); Eosinophils # 0.1 K/mm3 (0.0-0.4); Eosinophils % 1.5 % (0.1-12.0); Estimated Glomerular Filt Rate 56 ml/min (>60); GFR (African American) 67 ML/MIN (>60); Globulin 3.5 g/dL (1.3-3.2); Glucose 121 mg/dl (74-100); Hematocrit 47.2 % (37.0-47.0); Hemoglobin 15.6 g/dL (12.2-16.2); Lipase 219 U/L (23-300); Lymphocytes # 3.8 K/mm3 (0.7-4.5); Lymphocytes % 41.7 % (10-50); Mean Corpuscular HGB Conc 32.9 g/dL (31.8-35.4); Mean Corpuscular Hemoglobin 32.3 pg (27.0-31.2); Mean Corpuscular Volume 97.9 fl (81-99); Mean Platelet Volume 7.1 fl (7.4-10.4); Monocytes # 0.4 K/mm3 (0.1-1.0); Monocytes % 4.3 % (1.7-9.3); Neutrophils # 4.7 K/mm3 (1.8-7.8); Neutrophils % 51.4 % (37.0-80.0); Platelet Count 417 K/mm3 (142-424); Red Blood Count 4.82 M/mm3 (4.20-5.40); Red Cell Distribution Width 13.5 % (11.5-17.5); Total Protein,Serum 7.9 g/dl (6.3-8.2); White Blood Count 9.1 K/mm3 (4.8-10.8)
--- NOTE | 2022-06-10 10:10 | CT_ITS ---
PROCEDURE INFORMATION: Exam: CT Abdomen And Pelvis With Contrast Exam date and time: 06/10/2022 10:39 AM Age: 66 years old Clinical indication: Abdominal pain; Generalized; Additional info: Abd pain-- previous bowel surgery for obstruction and gallbladder removed TECHNIQUE: Imaging protocol: Computed tomography of the abdomen and pelvis with contrast. Radiation optimization: All CT scans at this facility use at least one of these dose optimization techniques: automated exposure control; mA and/or kV adjustment per patient size (includes targeted exams where dose is matched to clinical indication); or iterative reconstruction. Contrast material: ISOVUE; Contrast volume: 75 ml; Contrast route: IV; Other protocol: This patient has received [address] and 0 known cardiac nuclear medicine studies in the 12 months prior to the current study. COMPARISON: ABDPELW/O CT ABD PELVIS W/O CONTRAST 11/23/2016 7:42 PM FINDINGS: Lungs: Minimal bibasilar subsegmental atelectasis in visualized thorax. Liver: Mild fatty liver infiltration. Gallbladder and bile ducts: Gallbladder surgically absent. Pancreas: Focal common unenhanced seeing density in mid pancreatic body. No pancreatic ductal dilatation. No peripancreatic fat stranding. Spleen: Incidental calcified splenic granulomata. Otherwise, grossly unremarkable spleen. Adrenal glands: Normal. No mass. Kidneys and ureters: Normal. No hydronephrosis. Stomach and bowel: Postsurgical changes compatible with partial bowel resection. Nonobstructive bowel gas pattern. Sigmoid colonic diverticula without pericolonic fat stranding. Appendix: No evidence of appendicitis. Intraperitoneal space: Unremarkable. No free air. No significant fluid collection. Vasculature: Atherosclerotic calcification of aortoiliac arteries. Lymph nodes: Unremarkable. No enlarged lymph nodes. Urinary bladder: Unremarkable as visualized. Reproductive: Unremarkable as visualized. Bones/joints: Visualized osseous structures grossly unremarkable for acute findings. Mild age-related related osteopenia. Soft tissues: Unremarkable. IMPRESSION: 1. Postsurgical changes without evidence for bowel obstruction. 2. Too small to characterize hypodensity in pancreas. Although likely representing uncomplicated cyst, consider nonurgent MRI for confirmation. 3. Fatty liver infiltration. 4. Colonic diverticulosis without evidence for diverticulitis.
--- NOTE | 2022-06-10 10:29 | HMH.EDGENADL ---
Discharge Plan Disposition Patient Disposition: Home, Self-Care Condition: Good Prescriptions Prescriptions: New ondansetron 4 mg tablet,disintegrating 4 mg PO Q8H PRN (Reason: nausea and vomiting) Qty: 10 0RF No Action omeprazole 20 mg capsule,delayed release(DR/EC) 20 mg PO DAILY nitroglycerin 0.4 mg tablet, sublingual 0.4 mg SUBLINGUAL NEEDED PRN (Reason: Chest Pain) benazepril 10 mg tablet 10 mg PO DAILY Label Comments: patient states that she breaks in half and only takes 5mg once a day metoprolol succinate 100 mg tablet extended release 24 hr 100 mg PO DAILY calcium citrate-vitamin D3 [Calcitrate-Vitamin D] 315-250 mg-unit tablet 1 tab PO QAM gabapentin 300 mg capsule 300 mg PO Q8H furosemide 20 mg tablet 20 mg PO BID aspirin [Adult Low Dose Aspirin] 81 mg tablet,delayed release (DR/EC) 81 mg PO DAILY MDD supplement amitriptyline 10 mg tablet 10 mg PO QHS Qty: 0 alendronate 70 mg tablet 70 mg PO DAILY albuterol sulfate 90 mcg/actuation HFA aerosol inhaler 1 inh INHALATION QID PRN (Reason: shortness of breath or wheezing) 90 Days Qty: 8.5 3RF cetirizine [Zyrtec] 10 mg tablet 10 mg PO DAILY PRN (Reason: allergy symptoms) Qty: 30 3RF atorvastatin 40 MG tablet 40 mg PO DAILY fluticasone propionate [Flonase Allergy Relief] 50 mcg/actuation spray,suspension 2 spray INTRANASAL DAILY Rx Instructions: administer into each nostril azelastine 205.5 mcg (0.15 %) spray,non-aerosol 2 spray intranasal HS Rx Instructions: administer into each nostril Stiolto Respimat 2.5-2.5 mcg/actuation mist 2 puff INHALATION DAILY Referrals Follow up/Referrals: Kingston Ybarra MD [Primary Care Provider] - See instructions Activity Restrictions/Add. Instructions Additional Instructions/Restrictions: Tylenol as needed for pain. Zofran as needed for nausea. Follow-up with primary care provider Sunday if not improved. You have a small spot on your pancreas that requires further evaluation, call your primary care doctor to arrange follow-up. Additional instructions for ABDOMINAL PAIN: See your physician as soon as possible for further evaluation. Return immediately if worsening abdominal pain, vomiting, shortness of breath, fever, vomiting of blood or abdominal distention. Clinical Impressions Clinical Impression: Abdominal pain Instructions Patient Instructions: DI for Acute Abdominal Pain Discharge ED Provider: Patricio [facility] HPI General Chief complaint: Abdominal Pain Stated complaint: Back pain abd pain Time Seen by Provider: 06/10/22 10:25 Mode of Arrival: Ambulatory Source of Information: Patient Limitations: No Limitations Description of Symptoms (Recalled from ER Triage Doc. by RN): pt comes in with c/o lower abdominal pain that goes into her back. pt reports diarrhea for past few days as well. pt has hx of bowel surgeries. History of Present Illness HPI narrative: Patient complains of abdominal and back pain. States that 4 days ago started developing pain in her abdomen. Nurse reports lower abdomen, patient points more in her upper abdomen on my evaluation. States it radiates to her lower back. Denies vomiting. She has had some mild diarrhea without blood. Denies fever. Denies urinary symptoms. States that she has had the symptoms before. States that she had colon surgery 5 years ago at . She says they thought she had colon cancer and took out part of her colon, but it turned out she did not have cancer. She says she was admitted to the ICU and part of her colon and she had to go back to surgery. She says she subsequently had 4 surgeries in about 1 year. Since then she has also had 1 surgery about [address] Santana at this facility. She says the surgeries are all for her bowels and she says that her current symptoms of the way that it usually start
--- NOTE | 2022-06-10 10:51 | PC.NURSE ---
rounded on pt states no complaints at this time
[2022-06-10 11:14] LABS: Microscopic, Urine URINE MICROSCOPIC (MICROSCOPIC)
--- NOTE | 2022-06-10 11:21 | PC.NURSE ---
bhavana rounded on pt states the all good
--- NOTE | 2022-06-10 11:21 | PC.NURSE ---
er at bedside
[2022-06-10 11:35] LABS: Appearance,Urine CLEAR (Clear); Bilirubin,Urine Negative (Negative); Blood, Urine 1+ (Negative); Color,Urine YELLOW (Yellow); Glucose,Urine (UA) Negative (Negative); Ketones,Urine Negative (Negative); Leukocyte Esterase,Urine Negative (Negative); Nitrate,Urine Negative (Negative); Protein,Urine Negative (Negative); Urobilinogen,Urine 0.2 EU/dl (0.2)
[2022-06-10 11:36] LABS: RBC,Urine Occasional #/hpf (0-3); Squamous Epithelial Cell,Urine Occasional #/hpf (0-5); WBC,Urine Occasional #/hpf (0-3)
--- NOTE | 2022-06-10 12:19 | PC.NURSE ---
YOVANA ON PT GAVE HER A BLACK CUP OF COFFEE AND [employer] WORKING ON DISCHARGING PT
== END 2022-06-10 12:29 | disposition home or self-care (01) ==
PROVIDERS: Emergency Provider Emergency Medicine; PCP Internal Medicine Adolescent Medicine
DX: R10.30 Lower abdominal pain, unspecified (principal); R10.10 Upper abdominal pain, unspecified; M54.50 Low back pain, unspecified; J30.9 Allergic rhinitis, unspecified; J44.9 Chronic obstructive pulmonary disease, unspecified; R91.8 Other nonspecific abnormal finding of lung field; F17.210 Nicotine dependence, cigarettes, uncomplicated; Z82.49 Family history of ischemic heart disease and other diseases of the circulatory system
CPT/HCPCS: 74177; 80053; 81001; 82150; 83690; 85025; 96361; 96374; 99285; Q9967

== ENCOUNTER 2022-07-02 11:21 | Emergency (ER) | payer MEDICARE, MEDICAID, SELFPAY ==
[2022-07-02 13:00] VITALS: BP 116/72; PULSE 92; RESP 20; TEMP 37.1; O2SAT 93; BMI 33.3
--- NOTE | 2022-07-02 13:07 | EXP.UTC ---
Discharge Plan Disposition Patient Disposition: Home, Self-Care Condition: Good Prescriptions Prescriptions: New benzonatate [benzonatate] 100 mg capsule 100 mg PO TIDP PRN (Reason: Cough) Qty: 30 0RF methylprednisolone 4 mg Tablets,Dose Pack 4 mg PO DIRECTED Qty: 21 0RF amoxicillin-pot clavulanate 875-125 mg Tablet 1 tab PO Q12H Qty: 20 0RF No Action omeprazole 20 mg capsule,delayed release(DR/EC) 20 mg PO DAILY nitroglycerin 0.4 mg tablet, sublingual 0.4 mg SUBLINGUAL NEEDED PRN (Reason: Chest Pain) benazepril 10 mg tablet 10 mg PO DAILY Label Comments: patient states that she breaks in half and only takes 5mg once a day metoprolol succinate 100 mg tablet extended release 24 hr 100 mg PO DAILY calcium citrate-vitamin D3 [Calcitrate-Vitamin D] 315-250 mg-unit tablet 1 tab PO QAM gabapentin 300 mg capsule 300 mg PO Q8H furosemide 20 mg tablet 20 mg PO BID aspirin [Adult Low Dose Aspirin] 81 mg tablet,delayed release (DR/EC) 81 mg PO DAILY MDD supplement amitriptyline 10 mg tablet 10 mg PO QHS Qty: 0 alendronate 70 mg tablet 70 mg PO DAILY albuterol sulfate 90 mcg/actuation HFA aerosol inhaler 1 inh INHALATION QID PRN (Reason: shortness of breath or wheezing) 90 Days Qty: 8.5 3RF cetirizine [Zyrtec] 10 mg tablet 10 mg PO DAILY PRN (Reason: allergy symptoms) Qty: 30 3RF atorvastatin 40 MG tablet 40 mg PO DAILY fluticasone propionate [Flonase Allergy Relief] 50 mcg/actuation spray,suspension 2 spray INTRANASAL DAILY Rx Instructions: administer into each nostril azelastine 205.5 mcg (0.15 %) spray,non-aerosol 2 spray intranasal HS Rx Instructions: administer into each nostril Stiolto Respimat 2.5-2.5 mcg/actuation mist 2 puff INHALATION DAILY Referrals Follow up/Referrals: Aletha Almonte APRN [Primary Care Provider] - See instructions Activity Restrictions/Add. Instructions Additional Instructions/Restrictions: Drink plenty of fluids. Take tylenol or ibuprofen for pain or fever. Take the medications as directed. Follow up with your regular doctor. GO TO THE ER FOR ANY WORSENING SYMPTOMS Clinical Impressions Clinical Impression: COPD exacerbation Instructions Patient Instructions: COPD: When to Call for Help, DI for Chronic Obstructive Pulmonary Disease Discharge ED Provider: Fawad Mora [facility] [place] HPI General Stated complaint: cough, chills, body aches, sore throat Time Seen by Provider: 07/02/22 13:07 History of Present Illness Provider Complaint: She states that for the past 5 days she has had chest congestion, sinus congestion, productive cough, and she has felt bad. Related Data Home Medications Medication Instructions Recorded Confirmed calcium citrate 315 mg 1 tab PO QAM Supplement 07/23/17 06/10/22 calcium-vitamin D3 6.25 mcg (250 unit) tablet (Calcitrate) gabapentin 300 mg capsule 300 mg PO Q8H nerve pain 07/23/17 06/10/22 aspirin 81 mg tablet,delayed 81 mg PO DAILY Supplement 08/28/17 06/10/22 release (Adult Low Dose Aspirin) furosemide 20 mg tablet 20 mg PO BID Fluid 08/28/17 06/10/22 atorvastatin 40 mg tablet 40 mg PO DAILY Cholesterol 09/28/17 06/10/22 alendronate 70 mg tablet 70 mg PO DAILY fluid retention 02/17/19 06/10/22 amitriptyline 10 mg tablet 10 mg PO QHS RLS #0 tabs 02/17/19 06/10/22 nitroglycerin 0.4 mg sublingual 0.4 mg sublingual NEEDED PRN 06/30/19 06/10/22 tablet Chest Pain omeprazole 20 mg capsule,delayed 20 mg PO DAILY GERD 06/30/19 06/10/22 release metoprolol succinate 100 mg 100 mg PO DAILY High blood pressure 12/08/19 06/10/22 tablet,extended release 24 hr benazepril 10 mg tablet 10 mg PO DAILY . 08/10/21 06/10/22 azelastine 205.5 mcg (0.15 %) 2 spray intranasal HS . 06/10/22 06/10/22 nasal spray fluticasone propionate 50 2 spray intranasal DAILY Allergy 06/10/22 06/10/22 mcg/actuation
[2022-07-02 13:57] VITALS: BP 116/72; PULSE 92; RESP 20; TEMP 37.1; O2SAT 93
== END 2022-07-02 13:56 | disposition home or self-care (01) ==
PROVIDERS: Emergency Provider Nurse Practitioner Family; PCP Nurse Practitioner Family
DX: J44.1 Chronic obstructive pulmonary disease with (acute) exacerbation (principal); F17.218 Nicotine dependence, cigarettes, with other nicotine-induced disorders
CPT/HCPCS: 99212; 99214; G0463

== ENCOUNTER → 2022-07-14 07:14 | Outpatient (CLI) | payer MEDICARE, MEDICAID, SELFPAY ==
--- NOTE | 2022-07-14 07:28 | FL_ITS ---
FINAL REPORT CLINICAL HISTORY: Ruq abd pain - knot in stomach after eating, r/o hernia Fluoro time: 3:08min FINDINGS: UPPER GI WITH SBFT UPPER GI EXAM HISTORY: Abdominaldiscomfort. PROCEDURE: The patient ingested barium. Effervescent crystals were also administered. Spot and overhead films were obtained. FINDINGS: The esophagus is normal. There is no hiatal hernia. There is gastroesophageal reflux to above the aortic arch. Peristalsis is normal. The rugal fold pattern of the stomach is normal. The duodenal bulb is normal. FLUOROSCOPY TIME: 3 minutes IMPRESSION: Marked esophageal reflux. Otherwise, unremarkable upper GI. SBFT: The radiation therapy technician film is normal. There is no evidence of obstruction. The mucosal fold pattern is normal. There has been previous right colectomy. There is no bowel obstruction. IMPRESSION: Normal SBFT. Films reviewed , interpreted and dictated by Dr. Yi. Transcribed by Raf Ventura PA-C. Reviewed, Interpreted and Dictated by Ketan Yi MD Transcribed by ZEE Gonzalez Authenticated and [facility]
[2022-07-14 07:51] LABS: Basophils # 0.2 K/mm3 (0-0.2); Eosinophils # 0.2 K/mm3 (0.0-0.4); Eosinophils % 1.7 % (0.1-12.0); Hemoglobin 14.8 g/dL (12.2-16.2); Lymphocytes # 3.4 K/mm3 (0.7-4.5); Lymphocytes % 38.1 % (10-50); Mean Corpuscular HGB Conc 32.1 g/dL (31.8-35.4); Mean Corpuscular Hemoglobin 31.4 pg (27.0-31.2); Mean Corpuscular Volume 98.1 fl (81-99); Mean Platelet Volume 7.3 fl (7.4-10.4); Monocytes # 0.4 K/mm3 (0.1-1.0); Monocytes % 4.2 % (1.7-9.3); Neutrophils # 4.9 K/mm3 (1.8-7.8); Platelet Count 401 K/mm3 (142-424); Red Blood Count 4.69 M/mm3 (4.20-5.40); Red Cell Distribution Width 13.9 % (11.5-17.5)
[2022-07-14 08:23] LABS: Alanine Aminotransferase 20 U/L (12-78); Albumin/Globulin Ratio 1.5 (1.1-1.8); Alkaline Phosphatase 71 U/L (38-126); Anion Gap 10.7 mEq/L (5-15); Aspartate Amino Transferase 22 U/L (14-36); Bilirubin,Total 0.7 mg/dl (0.2-1.3); Blood Urea Nitrogen 17 mg/dl (7-17); Calcium 9.1 mg/dl (8.4-10.2); Carbon Dioxide 33 mmol/L (22.0-30.0); Chloride 102 mmol/L (98-107); Chol/HDL Ratio 5.3 (1-3.5); Cholesterol 163 mg/dl (140-200); Estimated Glomerular Filt Rate 72 ml/min (>60); GFR (African American) 87 ML/MIN (>60); Globulin 2.7 g/dL (1.3-3.2); Glucose 107 mg/dl (74-100); HDL Cholesterol 31 mg/dl (40-60); Potassium 4.7 mmoL/L (3.5-5.1); Sodium 141 mmol/L (136-145); Total Protein,Serum 6.7 g/dl (6.3-8.2); Triglycerides 385 mg/dl (30-150); VLDL Cholesterol 77 mg/dL (0-40)
[2022-07-14 08:34] LABS: Direct LDL Cholesterol 70.22 mg/dL (100-129)
[2022-07-14 08:39] LABS: 25-OH Vitamin D, Total 27.8 ng/mL (30-100)
== END ==
PROVIDERS: PCP Nurse Practitioner Family; Visit Provider Nurse Practitioner Family
DX: J41.1 Mucopurulent chronic bronchitis (principal); R73.03 Prediabetes; E78.2 Mixed hyperlipidemia; E55.9 Vitamin D deficiency, unspecified; M81.0 Age-related osteoporosis without current pathological fracture
CPT/HCPCS: 36415; 74246; 74248; 80053; 80061; 82306; 83036; 85025

== ENCOUNTER → 2022-07-21 07:31 | Outpatient (CLI) | payer MEDICARE, MEDICAID, SELFPAY ==
--- NOTE | 2022-07-21 07:35 | CT_ITS ---
FINAL REPORT CLINICAL HISTORY: lung cancer screening CURRENT SMOKER 1PPD X50 YEARS COMPARISON: 07/20/2021 and 07/07/2020 FINDINGS: Low-Dose Chest CT Axial images were obtained from the lung apex to the mid abdomen by computed tomography. Low-dose protocol was utilized. CTDI vol (mGy): 2.90 DLP (mGy-cm): 97.16 There is no axillary adenopathy. There is no hilar or mediastinal adenopathy. The heart is proper size. There is no pericardial or pleural effusion. Lung window images demonstrate stable nodular right apical pleural scarring. There has been no significant interval change in subpleural opacity in the left lower lobe which is also likely scar. A 4 mm right lower lobe nodule on image 62 is likely unchanged in retrospect from 2021 but was not well seen in 2020. The lungs are otherwise clear. Limited images of the upper abdomen are unremarkable. IMPRESSION: 4 mm right lower lobe nodule, likely stable from 2021 but not seen in 2020. Lung RADS category 2. Recommend 12 month follow-up low-dose chest CT. Reviewed, Interpreted and Dictated by Brooke Vogel MD Transcribed by Mireille Julio Authenticated and [facility]
--- NOTE | 2022-07-21 07:36 | XR_ITS ---
FINAL REPORT TECHNIQUE: Bone densitometry calculations of the lumbar spine and hip were obtained. CLINICAL HISTORY: . COMPARISON: 03/29/2021 FINDINGS: DEXA BONE DENSITY AXIAL SKELETON Using L1-4, the bone mineral density of the spine is 0.820 g/cm2, corresponding to T-score of -2.1 with a Z-score of -0.2. Previously measured 0.823 g/cm2, corresponding to T-score of -2.0 with a Z-score of -0.3. Using the left hip, the bone mineral density of the femoral neck is 0.558 g/cm2, corresponding to a T-score of -2.6 with a Z-score of -1.1. Previously measured 0.553 g/cm2, corresponding to T-score of -2.7 with a Z-score of -1.2. Using the right hip, the bone mineral density of the femoral neck is 0.599 g/cm2, corresponding to a T-score of -2.3 with a Z-score of -0.7. Previously measured 0.517 g/cm2, corresponding to T-score of -3.0 with a Z-score of -1.5. NOTE: T-score: Standard deviation compared with peak bone mass of young adult mean. *Following the recommendations of the International Society of Bone densitometry, classification of hip BMD is based on the lower of two T-scores; total hip or femoral neck. IMPRESSION: Osteoporosis: Lowest T-score is at or below -2.5. This patient's T-score meets the World Health Organization criteria for osteoporosis. FRAX not reported because: Some T-score for Spine Total or hip Total or femoral neck at or below -2.5. Patient treated for osteoporosis. Reviewed, Interpreted and Dictated by Brooke Vogel MD Transcribed by Mireille Julio Authenticated and [facility]
--- NOTE | 2022-07-21 07:37 | MM_ITS ---
PROCEDURE INFORMATION: Exam: MG Bilateral Screening 3D Mammography Exam date and time: 07/21/2022 8:07 AM Age: 67 years old Clinical indication: Screening mammogram TECHNIQUE: Imaging protocol: Bilateral Screening tomosynthesis and 2D mammography including computer-aided detection (CAD) when performed. COMPARISON: 1. MG MM DIG SCREENING MAMM BI W/CAD 03/29/2021 8:09 AM 2. MG MM DIG SCREENING MAMM BI W/CAD 09/11/2019 10:07 AM 3. MG SCBI MM Dig screening mamm BI w/CAD 08/09/2018 3:08 PM 4. MG SCBI MM Dig screening mamm BI w/CAD 06/25/2017 11:14 AM FINDINGS: MAMMOGRAPHY: Breast composition: The breasts are almost entirely fatty. Mass: Stable benign-appearing subcentimeter nodules are present in the left breast. No new or morphologically suspicious nodule has developed to suggest malignancy. Architectural distortion: No new or suspicious architectural distortion. Calcifications: No new or suspicious calcifications are present Asymmetric density: No new or suspicious asymmetric density is present Skin thickening: None. Axillary adenopathy: None. IMPRESSION: No mammographic evidence of malignancy. Recommend annual screening mammography unless otherwise clinically indicated. ASSESSMENT: BI-RADS category 2: Benign
== END ==
PROVIDERS: PCP Internal Medicine Adolescent Medicine; Visit Provider Internal Medicine Pulmonary Disease
DX: Z87.891 Personal history of nicotine dependence (principal); Z12.2 Encounter for screening for malignant neoplasm of respiratory organs; Z78.0 Asymptomatic menopausal state; M81.0 Age-related osteoporosis without current pathological fracture; Z12.31 Encounter for screening mammogram for malignant neoplasm of breast
CPT/HCPCS: 71271; 77063; 77067; 77080

== ENCOUNTER → 2022-09-01 13:07 | Outpatient (CLI) | payer MEDICARE, MEDICAID, SELFPAY | LOC: RT 13:08 | PROVIDERS: PCP Internal Medicine Adolescent Medicine; Visit Provider Internal Medicine Pulmonary Disease | DX: R06.02 Shortness of breath (principal) | CPT/HCPCS: 94762 ==

== ENCOUNTER → 2022-09-09 11:42 | Outpatient (CLI) | payer MEDICARE, MEDICAID, SELFPAY ==
--- NOTE | 2022-09-09 11:47 | XR_ITS ---
PROCEDURE INFORMATION: Exam: XR Thoracic Spine Exam date and time: 09/09/2022 11:49 AM Age: 67 years old Clinical indication: Pain in thoracic spine; Additional info: Mid back pain TECHNIQUE: Imaging protocol: Radiologic exam of the thoracic spine. Views: 2 views. Total images: 3 COMPARISON: SPTHORWO MR thoracic spine wo con 07/30/2017 7:51 AM FINDINGS: Bones/joints: Kyphoplasty changes noted at T8. The thoracic spine demonstrates mild degenerative changes at multiple levels. Compression deformities T6, T7 and T9 present, ages are indeterminate. Bones are osteopenic. Soft tissues: Unremarkable. IMPRESSION: 1. Kyphoplasty changes noted at T8. 2. The thoracic spine demonstrates mild degenerative changes at multiple levels. 3. Compression deformities T6, T7 and T9 present, ages are indeterminate. 4. Bones are osteopenic.
== END ==
PROVIDERS: PCP Nurse Practitioner Family; Visit Provider Nurse Practitioner Family
DX: M54.6 Pain in thoracic spine (principal); M81.0 Age-related osteoporosis without current pathological fracture
CPT/HCPCS: 72070

== ENCOUNTER → 2022-12-08 23:18 | Outpatient (CLI) | payer MEDICARE, SELFPAY | PROVIDERS: PCP Family Medicine; Visit Provider Nurse Practitioner Family | DX: R30.0 Dysuria (principal); B96.1 Klebsiella pneumoniae [K. pneumoniae] as the cause of diseases classified elsewhere | CPT/HCPCS: 87086; 87088; 87186 ==

== ENCOUNTER → 2023-01-30 12:14 | Outpatient (CLI) | payer MEDICARE, SELFPAY ==
[2023-01-30 12:50] VITALS: PULSE 76; PULSE 78
== END ==
PROVIDERS: PCP Family Medicine; Visit Provider Internal Medicine Pulmonary Disease
DX: R06.02 Shortness of breath (principal)
CPT/HCPCS: 94060; 94640

== ENCOUNTER 2023-05-28 10:27 | Outpatient (CLI) | payer MEDICARE, SELFPAY ==
[2023-05-28 11:14] LABS: Basophils # 0.1 K/mm3 (0-0.2); Basophils % 0.8 % (0.1-2.0); Eosinophils # 0.1 K/mm3 (0.0-0.4); Eosinophils % 1.8 % (0.1-12.0); Hematocrit 47.6 % (37.0-47.0); Hemoglobin 15.6 g/dL (12.2-16.2); Lymphocytes # 4.1 K/mm3 (0.7-4.5); Lymphocytes % 54.7 % (10-50); Mean Corpuscular HGB Conc 32.9 g/dL (31.8-35.4); Mean Corpuscular Hemoglobin 31.5 pg (27.0-31.2); Mean Corpuscular Volume 95.9 fl (81-99); Mean Platelet Volume 7.3 fl (7.4-10.4); Monocytes # 0.3 K/mm3 (0.1-1.0); Monocytes % 3.5 % (1.7-9.3); Neutrophils # 2.9 K/mm3 (1.8-7.8); Neutrophils % 39.2 % (37.0-80.0); Platelet Count 308 K/mm3 (142-424); Red Blood Count 4.97 M/mm3 (4.20-5.40); Red Cell Distribution Width 13.6 % (11.5-17.5); White Blood Count 7.4 K/mm3 (4.8-10.8)
[2023-05-28 11:17] LABS: MANUAL DIFFERENTIAL MANUAL DIFFERENTIAL (MANUAL DIFF)
[2023-05-28 11:40] LABS: Lymphocytes % 59 % (10-50); Monocytes % 1 % (2-9); Neutrophils % 40 % (42-76); RBC Morphology Normal; Total Cells Counted 100
[2023-05-28 11:41] LABS: Platelet Estimate Normal
[2023-05-28 11:59] LABS: Alanine Aminotransferase 18 U/L (12-78); Albumin Level 4.2 g/dl (3.5-5.0); Alkaline Phosphatase 78 U/L (38-126); Anion Gap 11.2 mEq/L (5-15); Aspartate Amino Transferase 26 U/L (14-36); Bilirubin,Direct 0.2 mg/dl (0.0-0.4); Bilirubin,Indirect 0.2 mg/dL (0.0-0.9); Bilirubin,Total 0.4 mg/dl (0.2-1.3); Bilirubin,Unconjugated 0.2 mg/dL (0.0-1.1); Blood Urea Nitrogen 10 mg/dl (7-17); Calcium 9.7 mg/dl (8.4-10.2); Carbon Dioxide 30 mmol/L (22.0-30.0); Chloride 103 mmol/L (98-107); Chol/HDL Ratio 4.6 (1-3.5); Cholesterol 185 mg/dl (140-200); Estimated Glomerular Filt Rate 55 ml/min (>60); GFR (African American) 67 ML/MIN (>60); Glucose 101 mg/dl (74-100); HDL Cholesterol 40 mg/dl (40-60); Potassium 4.2 mmoL/L (3.5-5.1); Sodium 140 mmol/L (136-145); Total Protein,Serum 7.1 g/dl (6.3-8.2); Triglycerides 207 mg/dl (30-150); VLDL Cholesterol 41 mg/dL (0-40)
[2023-05-28 12:16] LABS: Free T4 (Free Thyroxine) 1.11 ng/dl (0.78-2.19)
[2023-05-28 12:30] LABS: Thyroid Stimulating Hormone 1.49 uIU/mL (0.465-4.68)
== END 2023-05-28 23:59 ==
PROVIDERS: PCP Family Medicine; Visit Provider Physician Assistant
DX: F17.200 Nicotine dependence, unspecified, uncomplicated (principal); I25.10 Atherosclerotic heart disease of native coronary artery without angina pectoris; R06.09 Other forms of dyspnea; R94.31 Abnormal electrocardiogram [ECG] [EKG]; I11.9 Hypertensive heart disease without heart failure; R06.00 Dyspnea, unspecified; E11.9 Type 2 diabetes mellitus without complications
CPT/HCPCS: 36415; 80048; 80061; 80076; 84439; 84443; 85007; 85025

== ENCOUNTER 2023-06-20 09:26 | Outpatient (CLI) | payer MEDICARE, SELFPAY ==
--- NOTE | 2023-06-20 09:26 | CA_ITS ---
APPROVED REPORT EXAM: Comprehensive 2D, Doppler, and color-flow Echocardiogram Drug Safety Coordinator: Unique Thornton CRT Ht: 5 ft 2 in Wt: 166lbs BSA: 1.77 BP: 133/75 mmHg Indications: COPD, Peripheral Edema, CAD, Hypertension/HDD 2D Dimensions LA Volume 14.10 mL LA Volume Index 7.80 mL/m2 (M/F) 16-34 M-Mode Dimensions RVDd 2.37 cm (0.9-2.6) LA Diam 2.30 cm (1.9-4.0) LVDd 3.31 cm (3.5-5.7) LVDs 1.93 cm (3.5-5.7) IVSd 1.40 cm (0.6-1.1) PWd 0.41 cm (0.6-1.1) EF (Teich) 73.90% FS 41.70% EDV (Teich) 44.50 mL TAPSE 1.72 (<1.7) ESV (Teich) 11.60 mL LV Diastology E Decel Time 150 (160-240 msec) E/A Ratio 0.37 MED A' 11.20 cm/s LAT A' 12.80 cm/s Aortic Valve AO Peak GR. 11.10 mmHg Mitral Valve MV E Max Mc. 38.0 (40-130 cm/s) MV A Velocity 102.0 (40-130 cm/s) E/A Ratio 0.37 MV PHT 44.0 ms Pulmonary Valve PV Peak Velocity 129.0 (50-150 cm/s) Tricuspid Valve TR P. Velocity 240.00 cm/s RAP Estimate 10.00 mmHg RVSP 33.10 mmHg Left Ventricle The left ventricle is normal size. The left ventricular systolic function is normal. The left ventricular ejection fraction is within the normal range. There is normal left ventricular wall thickness. There is normal LV segmental wall motion. The left ventricular diastolic function is normal. LVEF is 55%. Right Ventricle The right ventricle is normal size. The right ventricular systolic function is normal. Atria The left atrium size is normal. The right atrium size is normal. There is no Doppler evidence of interatrial shunt. Aortic Valve The aortic valve opens well. There is no aortic valvular stenosis. No aortic regurgitation is present. Mitral Valve The mitral valve is normal in structure. No evidence of mitral valve stenosis. Trace mitral regurgitation. Tricuspid Valve The tricuspid valve leaflets are thin and pliable. Mild tricuspid regurgitation. RVSP is 20-25 mmHg. Pulmonic Valve The pulmonary valve is normal in structure. Trace pulmonic regurgitation. Great Vessels The aortic root is normal in size. The ascending aorta is normal in size. IVC is normal in size and collapses >50% with inspiration. Pericardium There is no pericardial effusion. Other Information Study Quality: Fair Conclusion Normal biventricular systolic function. Mild TR. Electronically signed by : Heidi Landin MD 06/23/2023 16:49:26
== END 2023-06-20 23:59 ==
LOC: RT 09:26
PROVIDERS: PCP Family Medicine; Visit Provider Physician Assistant
DX: F17.200 Nicotine dependence, unspecified, uncomplicated (principal); I25.10 Atherosclerotic heart disease of native coronary artery without angina pectoris; R06.09 Other forms of dyspnea; R94.31 Abnormal electrocardiogram [ECG] [EKG]
CPT/HCPCS: 93306

== ENCOUNTER 2023-07-16 12:52 | Inpatient (IN) | payer MEDICARE, SELFPAY ==
[2023-07-16] VITALS (15 sets, daily range): BP systolic 101–171; BP diastolic 62–98; PULSE 64–94; RESP 18–20; TEMP 36.4–36.7; O2SAT 84–98; BMI 28.0; BMI 29.5
--- NOTE | 2023-07-16 13:21 | ECG_ITS ---
APPROVED REPORT Exam: Resting ECG HR:73 bpm ECG Measurements Heart Rate 73 AXES PA 170 P 74 QRSd 94 QRS 12 QT 444 T 79 QTc 471 Conclusion SINUS RHYTHM POSSIBLE RIGHT VENTRICULAR CONDUCTION DELAY [RSR (QR) IN V1/V2] PROLONGED QT INTERVAL Electronically signed by : JYOTSNA MARISCAL, 07/16/2023 15:53:35
--- NOTE | 2023-07-16 13:24 | CT_ITS ---
FINAL REPORT TECHNIQUE: Thin section axial images were obtained through the abdomen after intravenous contrast. Reconstruction images were obtained from the axial data. Exam was performed using dose reduction techniques. CLINICAL HISTORY: Abdominal pain COMPARISON: 06/10/2022 FINDINGS: Right midlung atelectasis and scarring is unchanged. The lung bases are otherwise clear. The liver is homogeneous without focal lesion. The gallbladder is absent. The spleen and adrenal glands are unremarkable. There is a small hypodense lesion in the body of the pancreas which is unchanged. A left renal cyst is stable. There is no hydronephrosis or solid mass. Abdominal GI tract demonstrates dilated small bowel loops in the right upper quadrant and pelvis. Some of the small bowel loops in the pelvis are thick-walled. There are changes from partial right colectomy. A transition point is seen in the pelvis, midline. There is new, small amount of abdominal ascites. The urinary bladder is unremarkable. The uterus is absent. There is diverticulosis with no evidence of diverticulitis. There is a small amount of free fluid in the pelvis. There is no lymphadenopathy. No acute osseous changes are seen. IMPRESSION: Dilated small bowel loops with a transition point in the pelvis. Findings are most consistent with a small bowel obstruction likely related to adhesions. New small amount of abdominal ascites. Reviewed, Interpreted and Dictated by Brooke Vogel MD Transcribed by Paulette Gibson Authenticated and [facility]
[2023-07-16] MEDS: ONDANSETRON 4MG/2ML VIAL 4 MG IV ×3 (13:26→16:36)
[2023-07-16 13:34] LABS: Basophils # 0.2 K/mm3 (0-0.2); Basophils % 1.2 % (0.1-2.0); Eosinophils # 0.1 K/mm3 (0.0-0.4); Eosinophils % 0.6 % (0.1-12.0); Hematocrit 49.7 % (37.0-47.0); Hemoglobin 16.6 g/dL (12.2-16.2); Lymphocytes # 4.5 K/mm3 (0.7-4.5); Lymphocytes % 35.6 % (10-50); Mean Corpuscular HGB Conc 33.5 g/dL (31.8-35.4); Mean Corpuscular Volume 98.5 fl (81-99); Mean Platelet Volume 7.5 fl (7.4-10.4); Monocytes # 0.4 K/mm3 (0.1-1.0); Monocytes % 2.9 % (1.7-9.3); Neutrophils # 7.5 K/mm3 (1.8-7.8); Neutrophils % 59.7 % (37.0-80.0); Platelet Count 318 K/mm3 (142-424); Red Blood Count 5.05 M/mm3 (4.20-5.40); Red Cell Distribution Width 13.8 % (11.5-17.5); White Blood Count 12.5 K/mm3 (4.8-10.8)
[2023-07-16 13:39] LABS: Chloride 104 mmol/L (98-107); Potassium 3.7 mmoL/L (3.5-5.1); Sodium 140 mmol/L (136-145)
[2023-07-16 13:41] LABS: Alanine Aminotransferase 24 U/L (12-78); Aspartate Amino Transferase 33 U/L (14-36); Blood Urea Nitrogen 9 mg/dl (7-17); Creatinine Clearance Estimated 62 mL/min (50-200); Estimated Glomerular Filt Rate 55 ml/min (>60); GFR (African American) 67 ML/MIN (>60)
[2023-07-16 13:42] LABS: Albumin Level 4.4 g/dl (3.5-5.0); Albumin/Globulin Ratio 1.4 (1.1-1.8); Alkaline Phosphatase 98 U/L (38-126); Anion Gap 9.7 mEq/L (5-15); Bilirubin,Total 0.7 mg/dl (0.2-1.3); Carbon Dioxide 30 mmol/L (22.0-30.0); Globulin 3.1 g/dL (1.3-3.2); Glucose 169 mg/dl (74-100); Total Protein,Serum 7.5 g/dl (6.3-8.2)
[2023-07-16 13:49] LABS: Lactic Acid 1.6 mmol/L (0.7-2.1)
[2023-07-16] MEDS: MORPHINE 4MG/ML SYRINGE 4 MG IV ×2 (13:51→16:37)
[2023-07-16] MEDS: LACTATED RINGERS 1000ML 1,000 ML 999 ML IV (13:51)
[2023-07-16] MEDS: IOPAMIDOL-370 (76%);100ML BOTTLE 75 ML IV (14:03)
--- NOTE | 2023-07-16 14:17 | PC.NURSE ---
rounded on pt. No needs voiced at this time. Pt advised she is unable to provide urine. call light remains within reach
--- NOTE | 2023-07-16 14:23 | HMH.EDGENADL ---
Discharge Plan Disposition Patient Disposition: Admitted Chief Complaint: Abdominal Pain Clinical Impressions Clinical Impression: Abdominal pain, Nausea & vomiting, Bowel obstruction Discharge ED Provider: Chai Pickens General Adult HPI <Sheryl Robbins, - Last Filed: 07/16/23 15:49> General Chief complaint: Abdominal Pain Stated complaint: lower abd pain Time Seen by Provider: 07/16/23 13:12 Mode of Arrival: Ambulatory Source of Information: Patient Limitations: No Limitations Description of Symptoms (Recalled from ER Triage Doc. by RN): Patient reports pain in lower abdomen that started this morning with some vomiting. Patient states she has had multiple bowel surgeries the last one being here [address] Santana. Patient states pain feels like cramps and rates pain 10/10. History of Present Illness HPI narrative: This patient is a 68-year-old female with a history of hypertension, COPD, CAD, and prior bowel obstruction requiring surgical resection presenting with concern for abdominal pain. Patient reports that this feels the same as her prior bowel obstruction. She states that this morning, she had acute onset of abdominal pain, nausea, and vomiting. Abdominal pain is generalized but is mostly in her upper abdomen. She states she had a bowel movement this morning prior to onset that was very small, but since the pain started she has not had a bowel movement or passed gas. Emesis is nonbloody and nonbilious. No other concerns noted at this time. Of note, patient also has a history of cholecystectomy. Related Data Home Medications Medication Instructions Recorded Confirmed aspirin 81 mg tablet,delayed 81 mg PO DAILY Supplement 08/28/17 07/03/23 release (Adult Low Dose Aspirin) Previous Rx's Medication Instructions Recorded ipratropium 0.5 mg-albuterol 3 mg 3 ml inhalation QID PRN shortness 04/17/23 (2.5 mg base)/3 mL nebulization of breath or wheezing 90 days #270 soln mL atorvastatin 80 mg tablet 80 mg PO DAILY Cholesterol #90 tabs 05/28/23 varenicline 0.5 mg (11)-1 mg (42) See Rx Instructions PO PER PKG DIR 05/30/23 tablets in a dose pack (Chantix #53 tabs Starting Month Box) varenicline 1 mg tablet (Chantix 1 mg PO BID #60 tabs 05/30/23 Continuing Month Box) alendronate 70 mg tablet 70 mg PO WEEKLY 30 days #5 tabs 05/31/23 benazepril 5 mg tablet 5 mg PO DAILY 30 days #30 tabs 05/31/23 furosemide 20 mg tablet 20 mg PO BID Fluid 30 days #60 tabs 05/31/23 gabapentin 300 mg capsule 300 mg PO Q8H nerve pain #90 caps 05/31/23 metoprolol succinate 100 mg 100 mg PO DAILY High blood 05/31/23 tablet,extended release 24 hr pressure 30 days #30 tabs omeprazole 20 mg capsule,delayed 20 mg PO BID GERD 30 days #60 caps 05/31/23 release potassium chloride 10 mEq 10 meq PO DAILY 30 days #30 tabs 05/31/23 tablet,extended release albuterol sulfate 90 mcg/actuation 1 inh inhalation QID PRN shortness 07/03/23 aerosol inhaler of breath or wheezing 90 days #8.5 grams tiotropium 2.5 mcg-olodaterol 2.5 2 puff inhalation DAILY 90 days #4 07/03/23 mcg/actuation mist for inhalation grams (Stiolto Respimat) Allergies Allergy/AdvReac Type Severity Reaction Status Date / Time No Known Drug Allergies Allergy Unknown -- Verified 07/03/23 09:19 [facility] <Sheryl Robbins DO - Last Filed: 07/16/23 15:49> [facility] Disclaimer: The information contained in this section may have been updated after the patient was seen, as this information can be updated by other users. Medical History Allergic rhinitis Tobacco abuse counseling Screening for lung cancer Nocturnal hypoxemia Dyspnea on exertion Pulmonary emphysema Allergic rhinitis, unspecified Smoking greater than 30 pack years Pulmonary nodule, left Tobacco abuse COPD (chronic obstructive pulmonary disease) Edema Surgical History Previous back surgery History of colonoscopy History of hysterectomy History of cholecystectomy H/O oral surgery History of colon surgery History of excision of lesion Family History Other Heart attack Social History Smoking Status: Current every day smoker tobacco type: cigarettes packs per day: 1 second hand exposure: No alcohol intake: never counseling provided: provider counseling substance use type: denies use current occupational status: retired Travel in the last 8 weeks: None household members: none housing: house current occupational exposures/hazards: No caffeine: No <Sheryl Robbins DO - Last Filed: 07/16/23 15:49> ROS Obtained: Yes All systems reviewed & no additional complaints except as documented Physical Exam <Sheryl Robbins DO - Last Filed: 07/16/23 15:49> General General appearance: alert Comment: Uncomfortable appearing, actively vomiting Head Head exam: atraumatic and normocephalic Eye Eye exam: Present normal appearance, PERRL and EOMI ENT ENT exam: Present normal exam, normal oropharynx, mucous membranes moist and normal external ear exam Neck Neck exam: Present normal inspection, full ROM and trachea midline; Absent tenderness Chest Chest inspection: Present normal inspection and symmetric chest wall rise; Absent tenderness Respiratory Respiratory exam: Present normal lung sounds bilaterally; Absent respiratory distress, wheezes, stridor or accessory muscle use Cardiovascular Cardiovascular exam: Present regular rate and normal rhythm Abdominal Exam Abdominal exam: Present soft, tenderness (Generalized, worse in the upper abdomen) and guarding (Upper abdomen/epigastric); Absent distention, rebound or rigidity Extremities Exam Extremities exam: Present normal inspection, full ROM and normal capillary refill; Absent tenderness or edema Back Exam Back exam: Present normal inspection and full ROM; Absent tenderness Neurological Exam Neurological exam: Present alert, oriented X3, CN II-XII intact and normal gait; Absent motor sensory deficit Psychiatric Psychiatric exam: Present normal affect and normal mood Skin Skin exam: Present warm and dry Medical Decision Making <Sheryl Robbins DO - Last Filed: 07/16/23 15:49> Medical Records Medical records reviewed: Yes I reviewed the patient's medical records. [place] Inquiry Pt receiving controlled substance: No Vital Signs: 07/16/23 12:53 07/16/23 14:23 07/16/23 14:31 Temperature 97.5 F L Temperature Source Oral Pulse Rate 68 72 Pulse Rate [Right] 94 H Respiratory Rate 18 Blood Pressure 116/62 123/94 H Blood Pressure [Right Arm] 138/88 Blood Pressure Mean [Right Arm] 104 Blood Pressure Source [Right Arm] Automatic Cuff 02 Sat by Pulse Oximetry 95 95 94 L Oxygen Delivery Method Room Air Room Air Room Air Oxygen Flow Rate (LPM) 07/16/23 15:02 07/16/23 15:31 07/16/23 16:01 Temperature Temperature Source Pulse Rate 76 69 68 Pulse Rate [Right] Respiratory Rate Blood Pressure 101/85 L 113/98 H 158/90 H Blood Pressure [Right Arm] Blood Pressure Mean [Right Arm] Blood Pressure Source [Right Arm] 02 Sat by Pulse Oximetry 91 L 91 L 89 L Oxygen Delivery Method Room Air Room Air Room Air Oxygen Flow Rate (LPM) 07/16/23 16:30 07/16/23 17:00 07/16/23 17:31 Temperature Temperature Source Pulse Rate 82 69 69 Pulse Rate [Right] Respiratory Rate Blood Pressure 148/90 H 171/75 H 132/74 Blood Pressure [Right Arm] Blood Pressure Mean [Right Arm] Blood Pressure Source [Right Arm] 02 Sat by Pulse Oximetry 88 L 97 97 Oxygen Delivery Method Room Air Room Air Room Air Oxygen Flow Rate (LPM) 07/16/23 18:00 07/16/23 18:39 Temperature Temperature Source Pulse Rate 64 82 Pulse Rate [Right] Respiratory Rate Blood Pressure 119/83 127/79 Blood Pressure [Right Arm] Blood Pressure Mean [Right Arm] Blood Pressure Source [Right Arm] 02 Sat by Pulse Oximetry 98 87 L Oxygen Delivery Method Room Air Nasal Cannula Oxygen Flow Rate (LPM) 2 Lab Data Lab results reviewed: Yes I reviewed the patient's lab results. Lab Results 07/16/23 13:05: WBC 12.5 H, RBC 5.05, Hgb 16.6 H, Hct 49.7 H, MCV 98.5, MCH 33.0 H, MCHC 33.5, RDW 13.8, Plt Count 318, MPV 7.5, Neut % (Auto) 59.7, Lymph % (Auto) 35.6, [place] % (Auto) 2.9, Eos % (Auto) 0.6, Baso % (Auto) 1.2, Neut # (Auto) 7.5, Lymph # (Auto) 4.5, [place] # (Auto) 0.4, Eos # (Auto) 0.1, Baso # (Auto) 0.2, Sodium 140, Potassium 3.7, Chloride 104, Carbon Dioxide 30, Anion Gap 9.7, BUN 9, Creatinine 1.00, Estimated Creat Clear 62, Estimated GFR 55 L, Est GFR ( Amer) 67, Glucose 169 H, Calcium 10.0, Total Bilirubin 0.7, AST 33, ALT 24, Alkaline Phosphatase 98, Troponin I < 0.01, Total Protein 7.5, Albumin 4.4, Globulin 3.1, Albumin/Globulin Ratio 1.4, Lipase 66 07/16/23 13:35: Lactate 1.6 07/16/23 15:00: Urine Color Yellow, Urine Appearance Clear, Urine pH 6.0, Ur Specific [place] 1.025, Urine Protein 1+, Urine Glucose (UA) Negative, Urine Ketones Negative, Urine Blood Trace-i, Urine Nitrate Negative, Urine Bilirubin Negative, Urine Urobilinogen 0.2, Ur Leukocyte Esterase Negative, Urine RBC Occasional, Urine WBC None, Ur Squamous Epith Cells Occasional, Urine Bacteria None 07/16/23 16:24: Troponin I < 0.01 07/16/23 13:05 07/16/23 13:05 Orders (Tests/Meds): ED MEDICATIONS Generic Name Dose Route Start Last Admin Trade Name Freq PRN Reason Stop Dose Admin Lactated Ringer's 1,000 mls @ 75 mls/hr 07/16/23 18:00 07/16/23 18:44 Lactated Ringer's 1000 Ml Bag IV 08/15/23 17:59 75 mls/hr .[id number] [place] Administration Sodium Chloride 10 ml 07/16/23 13:24 Sodium Chloride 0.9% 10ml Flush Syringe IV 08/15/23 13:23 NEEDED PRN Maintain IV Site Sodium Chloride 10 ml 07/16/23 14:00 Sodium Chloride 0.9% 10ml Syr (Rad Only) IV 08/15/23 13:59 NEEDED PRN Maintain IV Site Discontinued Medications Generic Name Dose Route Start Last Admin Trade Name Freq PRN Reason Stop Dose Admin Hydromorphone HCl 1 mg 07/16/23 14:27 07/16/23 14:32 Hydromorphone 2mg/Ml Syringe IV 07/16/23 14:28 Not Given ONCE ONE Lactated Ringer's 1,000 mls @ 999 mls/hr 07/16/23 13:35 07/16/23 13:51 Lactated Ringer's 1000 Ml Bag IV 07/16/23 14:35 999 mls/hr .Q1H1M ONE Administration Iopamidol 75 ml 07/16/23 14:00 07/16/23 14:03 Iopamidol-370 (76%);100ml Bottle IV 07/16/23 14:01 75 ml ONCE ONE Administration Morphine Sulfate 4 mg 07/16/23 13:35 07/16/23 13:51 Morphine 4mg/Ml Syringe IV 07/16/23 13:36 4 mg ONCE ONE Administration Morphine Sulfate 4 mg 07/16/23 16:14 07/16/23 16:37 Morphine 4mg/Ml Syringe IV 07/16/23 16:15 4 mg ONCE ONE Administration Ondansetron HCl 4 mg 07/16/23 13:23 07/16/23 13:26 Ondansetron 4mg/2ml Vial IV 07/16/23 13:24 4 mg ONCE ONE Administration Ondansetron HCl 4 mg 07/16/23 13:35 07/16/23 13:51 Ondansetron 4mg/2ml Vial IV 07/16/23 13:36 4 mg ONCE ONE Administration Ondansetron HCl 4 mg 07/16/23 16:14 07/16/23 16:36 Ondansetron 4mg/2ml Vial IV 07/16/23 16:15 4 mg ONCE ONE Administration ORDERS Category Date Time Status CT abdomen pelvis w con Stat Cat Scan 07/16/23 13:24 Completed Surgery Consult (on-call) [Consult to On-Call Gen'l Cons 07/16/23 17:56 Ordered Surgeon] [CONS] Routine CXR --portable [XR chest portable] Stat Exams 07/16/23 18:18 Taken CMP [Comprehensive Metabolic Panel] Stat Lab 07/16/23 13:05 Completed Complete Blood Count Auto Diff AMLAB Lab 07/17/23 06:00 Ordered Complete Blood Count Auto Diff Stat Lab 07/16/23 13:05 Completed Comprehensive Metabolic Panel AMLAB Lab 07/17/23 06:00 Ordered Lactic Acid Stat Lab 07/16/23 13:35 Completed Lipase Stat Lab 07/16/23 13:05 Completed Magnesium AMLAB Lab 07/17/23 06:00 Ordered Troponin I Q3H Lab 07/16/23 16:24 Completed Troponin I Q3H Lab 07/16/23 19:30 Ordered Troponin I Stat Lab 07/16/23 13:05 Completed UA [Urinalysis and Microscopic] Stat Lab 07/16/23 15:00 Completed ECG Data Tracing #1: I reviewed this ECG and interpreted as documented below: Normal sinus rhythm with a ventricular rate of [address] elevations concerning for ischemia. Borderline prolonged QT with a QTc of 471 ms. ECG initial impression date: 07/16/23 ECG initial impression time: 14:18 Medical Decision Narrative: In summary, this patient is a 68-year-old female presenting to the Emergency Department for evaluation of generalized abdominal pain, nausea, vomiting that feels similar to her prior bowel obstruction. Differential diagnoses considered include but are not limited to bowel obstruction, bowel ischemia, bowel perforation, gastroenteritis, pancreatitis, urinary tract infection. Ruling out the most morbid conditions drove assessment. Workup included CT, CMP, lipase, lactic acid, troponin, urinalysis, EKG and CT abdomen pelvis with IV contrast. Patient was given a bolus of IV fluids as well as IV morphine and Zofran for symptomatic improvement. I independently interpreted CT scan prior to the radiologist read and noted for bowel obstruction with multiple fluid-filled loops of bowel. Please see their read for final interpretation. Labs were obtained that demonstrated mild leukocytosis without other acutely concerning abnormalities. Lactic acid is within normal limits.. At this time, patient care signed out to the oncoming provider, Dr. Pickens, pending surgical consultation and disposition. <Chai Pickens MD - Last Filed: 07/16/23 19:06> Vital Signs: 07/16/23 12:53 07/16/23 14:23 07/16/23 14:31 Temperature 97.5 F L Temperature Source Oral Pulse Rate 68 72 Pulse Rate [Right] 94 H Respiratory Rate 18 Blood Pressure 116/62 123/94 H Blood Pressure [Right Arm] 138/88 Blood Pressure Mean [Right Arm] 104 Blood Pressure Source [Right Arm] Automatic Cuff 02 Sat by Pulse Oximetry 95 95 94 L Oxygen Delivery Method Room Air Room Air Room Air Oxygen Flow Rate (LPM) 07/16/23 15:02 07/16/23 15:31 07/16/23 16:01 Temperature Temperature Source Pulse Rate 76 69 68 Pulse Rate [Right] Respiratory Rate Blood Pressure 101/85 L 113/98 H 158/90 H Blood Pressure [Right Arm] Blood Pressure Mean [Right Arm] Blood Pressure Source [Right Arm] 02 Sat by Pulse Oximetry 91 L 91 L 89 L Oxygen Delivery Method Room Air Room Air Room Air Oxygen Flow Rate (LPM) 07/16/23 16:30 07/16/23 17:00 07/16/23 17:31 Temperature Temperature Source Pulse Rate 82 69 69 Pulse Rate [Right] Respiratory Rate Blood Pressure 148/90 H 171/75 H 132/74 Blood Pressure [Right Arm] Blood Pressure Mean [Right Arm] Blood Pressure Source [Right Arm] 02 Sat by Pulse Oximetry 88 L 97 97 Oxygen Delivery Method Room Air Room Air Room Air Oxygen Flow Rate (LPM) 07/16/23 18:00 07/16/23 18:39 Temperature Temperature Source Pulse Rate 64 82 Pulse Rate [Right] Respiratory Rate Blood Pressure 119/83 127/79 Blood Pressure [Right Arm] Blood Pressure Mean [Right Arm] Blood Pressure Source [Right Arm] 02 Sat by Pulse Oximetry 98 87 L Oxygen Delivery Method Room Air Nasal Cannula Oxygen Flow Rate (LPM) 2 Lab Data Lab Results 07/16/23 13:05: WBC 12.5 H, RBC 5.05, Hgb 16.6 H, Hct 49.7 H, MCV 98.5, MCH 33.0 H, MCHC 33.5, RDW 13.8, Plt Count 318, MPV 7.5, Neut % (Auto) 59.7, Lymph % (Auto) 35.6, [place] % (Auto) 2.9, Eos % (Auto) 0.6, Baso % (Auto) 1.2, Neut # (Auto) 7.5, Lymph # (Auto) 4.5, [place] # (Auto) 0.4, Eos # (Auto) 0.1, Baso # (Auto) 0.2, Sodium 140, Potassium 3.7, Chloride 104, Carbon Dioxide 30, Anion Gap 9.7, BUN 9, Creatinine 1.00, Estimated Creat Clear 62, Estimated GFR 55 L, Est GFR ( Amer) 67, Glucose 169 H, Calcium 10.0, Total Bilirubin 0.7, AST 33, ALT 24, Alkaline Phosphatase 98, Troponin I < 0.01, Total Protein 7.5, Albumin 4.4, Globulin 3.1, Albumin/Globulin Ratio 1.4, Lipase 66 07/16/23 13:35: Lactate 1.6 07/16/23 15:00: Urine Color Yellow, Urine Appearance Clear, Urine pH 6.0, Ur Specific [place] 1.025, Urine Protein 1+, Urine Glucose (UA) Negative, Urine Ketones Negative, Urine Blood Trace-i, Urine Nitrate Negative, Urine Bilirubin Negative, Urine Urobilinogen 0.2, Ur Leukocyte Esterase Negative, Urine RBC Occasional, Urine WBC None, Ur Squamous Epith Cells Occasional, Urine Bacteria None 07/16/23 16:24: Troponin I < 0.01 Orders (Tests/Meds): ED MEDICATIONS Generic Name Dose Route Start Last Admin Trade Name Freq PRN Reason Stop Dose Admin Lactated Ringer's 1,000 mls @ 75 mls/hr 07/16/23 18:00 07/16/23 18:44 Lactated Ringer's 1000 Ml Bag IV 08/15/23 17:59 75 mls/hr .[id number] [place] Administration Sodium Chloride 10 ml 07/16/23 13:24 Sodium Chloride 0.9% 10ml Flush Syringe IV 08/15/23 13:23 NEEDED PRN Maintain IV Site Sodium Chloride 10 ml 07/16/23 14:00 Sodium Chloride 0.9% 10ml Syr (Rad Only) IV 08/15/23 13:59 NEEDED PRN Maintain IV Site Discontinued Medications Generic Name Dose Route Start Last Admin Trade Name Freq PRN Reason Stop Dose Admin Hydromorphone HCl 1 mg 07/16/23 14:27 07/16/23 14:32 Hydromorphone 2mg/Ml Syringe IV 07/16/23 14:28 Not Given ONCE ONE Lactated Ringer's 1,000 mls @ 999 mls/hr 07/16/23 13:35 07/16/23 13:51 Lactated Ringer's 1000 Ml Bag IV 07/16/23 14:35 999 mls/hr .Q1H1M ONE Administration Iopamidol 75 ml 07/16/23 14:00 07/16/23 14:03 Iopamidol-370 (76%);100ml Bottle IV 07/16/23 14:01 75 ml ONCE ONE Administration Morphine Sulfate 4 mg 07/16/23 13:35 07/16/23 13:51 Morphine 4mg/Ml Syringe IV 07/16/23 13:36 4 mg ONCE ONE Administration Morphine Sulfate 4 mg 07/16/23 16:14 07/16/23 16:37 Morphine 4mg/Ml Syringe IV 07/16/23 16:15 4 mg ONCE ONE Administration Ondansetron HCl 4 mg 07/16/23 13:23 07/16/23 13:26 Ondansetron 4mg/2ml Vial IV 07/16/23 13:24 4 mg ONCE ONE Administration Ondansetron HCl 4 mg 07/16/23 13:35 07/16/23 13:51 Ondansetron 4mg/2ml Vial IV 07/16/23 13:36 4 mg ONCE ONE Administration Ondansetron HCl 4 mg 07/16/23 16:14 07/16/23 16:36 Ondansetron 4mg/2ml Vial IV 07/16/23 16:15 4 mg ONCE ONE Administration ORDERS Category Date Time Status CT abdomen pelvis w con Stat Cat Scan 07/16/23 13:24 Completed Surgery Consult (on-call) [Consult to On-Call Gen'l Cons 07/16/23 17:56 Ordered Surgeon] [CONS] Routine CXR --portable [XR chest portable] Stat Exams 07/16/23 18:18 Taken CMP [Comprehensive Metabolic Panel] Stat Lab 07/16/23 13:05 Completed Complete Blood Count Auto Diff AMLAB Lab 07/17/23 06:00 Ordered Complete Blood Count Auto Diff Stat Lab 07/16/23 13:05 Completed Comprehensive Metabolic Panel AMLAB Lab 07/17/23 06:00 Ordered Lactic Acid Stat Lab 07/16/23 13:35 Completed Lipase Stat Lab 07/16/23 13:05 Completed Magnesium AMLAB Lab 07/17/23 06:00 Ordered Troponin I Q3H Lab 07/16/23 16:24 Completed Troponin I Q3H Lab 07/16/23 19:30 Ordered Troponin I Stat Lab 07/16/23 13:05 Completed UA [Urinalysis and Microscopic] Stat Lab 07/16/23 15:00 Completed Medical Decision Narrative: RecommendIn summary, this patient is a 68-year-old female presenting to the Emergency Department for evaluation of generalized abdominal pain, nausea, vomiting that feels similar to her prior bowel obstruction. Differential diagnoses considered include but are not limited to bowel obstruction, bowel ischemia, bowel perforation, gastroenteritis, pancreatitis, urinary tract infection. Ruling out the most morbid conditions drove assessment. Workup included CT, CMP, lipase, lactic acid, troponin, urinalysis, EKG and CT abdomen pelvis with IV contrast. Patient was given a bolus of IV fluids as well as IV morphine and Zofran for symptomatic improvement. I independently interpreted CT scan prior to the radiologist read and noted for bowel obstruction with multiple fluid-filled loops of bowel. Please see their read for final interpretation. Labs were obtained that demonstrated mild leukocytosis without other acutely concerning abnormalities. Lactic acid is within normal limits.. At this time, patient care signed out to the oncoming provider, Dr. Pickens, pending surgical consultation and disposition. Chai Pickens: Upon assumption of care patient was hemodynamically stable, persistent abdominal pain and nausea. Dr. Trivedi has been contacted and is currently in surgery. Patient has past medical history of multiple bowel obstructions, previous colonic resection, previous appendectomy, previous cholecystectomy, previous hysterectomy. Hematologic labs reviewed by me and are nonactionable. CT imaging remarkable for dilated small loops with transition point in the pelvis consistent with small bowel obstruction related to adhesions. The case was discussed with Dr. Trivedi bowel decompression which will be conducted with NG tube. Case was discussed with hospital medicine and patient be admitted to their service for medical management with surgical consultation. Critical Care <Sheryl Robbins, - Last Filed: 07/16/23 15:49> Critical Care Time Critical Care Time: No
[2023-07-16 14:35] LABS: Lipase 66 U/L (23-300)
--- NOTE | 2023-07-16 14:43 | PC.NURSE ---
Pt advised she is still unable to provide urine sample
[2023-07-16 15:14] LABS: Microscopic, Urine URINE MICROSCOPIC (MICROSCOPIC)
--- NOTE | 2023-07-16 15:22 | PC.NURSE ---
Dr. Hancock currently in surgery at this time
[2023-07-16 15:35] LABS: Appearance,Urine CLEAR (Clear); Bilirubin,Urine Negative (Negative); Blood, Urine TRACE-I (Negative); Color,Urine YELLOW (Yellow); Glucose,Urine (UA) Negative (Negative); Ketones,Urine Negative (Negative); Leukocyte Esterase,Urine Negative (Negative); Nitrate,Urine Negative (Negative); Protein,Urine 1+ (Negative); Specific Gravity, Urine 1.025 (1.005-1.030); Urobilinogen,Urine 0.2 EU/dl (0.2)
[2023-07-16 15:43] LABS: Troponin I < 0.01 ng/ml (0.00-0.034)
[2023-07-16 16:03] LABS: RBC,Urine Occasional #/hpf (0-3); Squamous Epithelial Cell,Urine Occasional #/hpf (0-5)
[2023-07-16 16:53] LABS: Troponin I < 0.01 ng/ml (0.00-0.034)
--- NOTE | 2023-07-16 18:03 | EXP.SURG.CON ---
History of Present Illness *Admission Date: 07/16/23 *Reason for visit:: Bowel obstruction *History of present illness: Patient is a 68-year-old female from [facility]. She has had multiple previous abdominal surgeries. She has apparently previously had colon resection for benign disease. She had developed a ventral hernia and had mesh placed. Also she has previously undergone laparotomy with lysis of adhesions for bowel obstruction. This was all at outside facility. She had presented to this facility in 2017 with a bowel obstruction secondary to hernia recurrence with strangulated small bowel through the mesh. She required laparotomy with small bowel resection and primary closure done by Dr. Santana on 11/24/16. She was in her usual state of health until today at which time she had acute onset of abdominal pain with associated nausea and vomiting. This is mostly in the upper abdomen. She did have a bowel movement today prior to presentation. She has had emesis. The symptoms are similar to symptoms she has had with previous obstruction. She underwent CT scan of the abdomen pelvis which reveals dilated small bowel loops with a transition point in the pelvis consistent with small bowel obstruction likely related to adhesions. Dr. Santana had performed EGD and colonoscopy in 2018. She was found to have some sigmoid diverticulosis with normal-appearing colon anastomosis. There were some polyps noted which were hyperplastic. [facility] Disclaimer: The information contained in this section may have been updated after the patient was seen, as this information can be updated by other users. Medical History (Updated 07/17/23 @ 04:42 by Isacc Ogden APRN) Allergic rhinitis Tobacco abuse counseling Screening for lung cancer Nocturnal hypoxemia Dyspnea on exertion Pulmonary emphysema Allergic rhinitis, unspecified Smoking greater than 30 pack years Pulmonary nodule, left Tobacco abuse COPD (chronic obstructive pulmonary disease) Edema Surgical History (Updated 07/16/23 @ 22:17 by Sirena Guadalupe RN) H/O right heart catheterization Previous back surgery History of colonoscopy History of hysterectomy History of cholecystectomy H/O oral surgery History of colon surgery History of excision of lesion Family History Other Heart attack Social History Smoking Status: Current every day smoker tobacco type: cigarettes packs per day: 1 second hand exposure: No alcohol intake: never counseling provided: provider counseling substance use type: denies use current occupational status: retired Travel in the last 8 weeks: None household members: none housing: house current occupational exposures/hazards: No caffeine: No Meds Home Medications and Allergies Home Medications Medication Instructions Recorded Confirmed Type aspirin 81 mg tablet,delayed 81 mg PO DAILY Supplement 08/28/17 07/16/23 History release (Adult Low Dose Aspirin) ipratropium 0.5 mg-albuterol 3 mg 3 ml inhalation QID PRN shortness 04/17/23 07/16/23 Rx (2.5 mg base)/3 mL nebulization of breath or wheezing 90 days #270 soln mL atorvastatin 80 mg tablet 80 mg PO DAILY Cholesterol #90 tabs 05/28/23 07/16/23 Rx varenicline 0.5 mg (11)-1 mg (42) See Rx Instructions PO PER PKG DIR 05/30/23 07/16/23 Rx tablets in a dose pack (Chantix #53 tabs Starting Month Box) varenicline 1 mg tablet (Chantix 1 mg PO BID #60 tabs 05/30/23 07/16/23 Rx Continuing Month Box) alendronate 70 mg tablet 70 mg PO WEEKLY 30 days #5 tabs 05/31/23 07/16/23 Rx benazepril 5 mg tablet 5 mg PO DAILY 30 days #30 tabs 05/31/23 07/16/23 Rx furosemide 20 mg tablet 20 mg PO BID Fluid 30 days #60 tabs 05/31/23 07/16/23 Rx gabapentin 300 mg capsule 300 mg PO Q8H nerve pain #90 caps 05/31/23 07/16/23 Rx metoprolol succinate 100 mg 100 mg PO DAILY High blood 05/31/23 07/16/23 Rx tablet,extended release 24 hr pressure 30 days #30 tabs omeprazole 20 mg capsule,delayed 20 mg PO BID GERD 30 days #60 caps 05/31/23 07/16/23 Rx release potassium chloride 10 mEq 10 meq PO DAILY 30 days #30 tabs 05/31/23 07/16/23 Rx tablet,extended release albuterol sulfate 90 mcg/actuation 1 inh inhalation QID PRN shortness 07/03/23 07/16/23 Rx aerosol inhaler of breath or wheezing 90 days #8.5 grams tiotropium 2.5 mcg-olodaterol 2.5 2 puff inhalation DAILY 90 days #4 07/03/23 07/16/23 Rx mcg/actuation mist for inhalation grams (Stiolto Respimat) New Prescriptions to Start Prescriptions: Allergies Allergy/AdvReac Type Severity Reaction Status Date / Time No Known Drug Allergies Allergy Unknown -- Verified 07/03/23 09:19 Exam (Inpt) Vital signs and Labs for Last 24 Hours: Temp Pulse Resp BP Pulse Ox O2 Del Method 97.5 F L 82 18 148/90 H 88 L Room Air 07/16/23 12:53 07/16/23 16:30 07/16/23 12:53 07/16/23 16:30 07/16/23 16:30 07/16/23 16:30 Laboratory Results - last 24 hr 07/16/23 13:05: WBC 12.5 H, RBC 5.05, Hgb 16.6 H, Hct 49.7 H, MCV 98.5, MCH 33.0 H, MCHC 33.5, RDW 13.8, Plt Count 318, MPV 7.5, Neut % (Auto) 59.7, Lymph % (Auto) 35.6, [place] % (Auto) 2.9, Eos % (Auto) 0.6, Baso % (Auto) 1.2, Neut # (Auto) 7.5, Lymph # (Auto) 4.5, [place] # (Auto) 0.4, Eos # (Auto) 0.1, Baso # (Auto) 0.2, Sodium 140, Potassium 3.7, Chloride 104, Carbon Dioxide 30, Anion Gap 9.7, BUN 9, Creatinine 1.00, Estimated Creat Clear 62, Estimated GFR 55 L, Est GFR ( Amer) 67, Glucose 169 H, Calcium 10.0, Total Bilirubin 0.7, AST 33, ALT 24, Alkaline Phosphatase 98, Troponin I < 0.01, Total Protein 7.5, Albumin 4.4, Globulin 3.1, Albumin/Globulin Ratio 1.4, Lipase 66 07/16/23 13:35: Lactate 1.6 07/16/23 15:00: Urine Color Yellow, Urine Appearance Clear, Urine pH 6.0, Ur Specific [place] 1.025, Urine Protein 1+, Urine Glucose (UA) Negative, Urine Ketones Negative, Urine Blood Trace-i, Urine Nitrate Negative, Urine Bilirubin Negative, Urine Urobilinogen 0.2, Ur Leukocyte Esterase Negative, Urine RBC Occasional, Urine WBC None, Ur Squamous Epith Cells Occasional, Urine Bacteria None 07/16/23 16:24: Troponin I < 0.01 I & O for Labs for Last 24 Hours: Intake & Output 07/14/23 07/15/23 07/16/23 07/17/23 11:59 11:59 11:59 11:59 Weight 158 lb Constitutional: no acute distress Head: Present normocephalic Neck: Present normal inspection Respiratory: Present CTA bilaterally Cardiac: Present Reg Rate and Rhythm GI: Present soft and tenderness Comments:: Abdomen is nondistended and soft. She has mild tenderness to deep palpation. No guarding or rebound. Rectal (female): Present deferred (female): Present deferred Results Labs 07/16/23 13:05 07/16/23 13:05 Labs: Laboratory Results - last 24 hr 07/16/23 13:05: WBC 12.5 H, RBC 5.05, Hgb 16.6 H, Hct 49.7 H, MCV 98.5, MCH 33.0 H, MCHC 33.5, RDW 13.8, Plt Count 318, MPV 7.5, Neut % (Auto) 59.7, Lymph % (Auto) 35.6, [place] % (Auto) 2.9, Eos % (Auto) 0.6, Baso % (Auto) 1.2, Neut # (Auto) 7.5, Lymph # (Auto) 4.5, [place] # (Auto) 0.4, Eos # (Auto) 0.1, Baso # (Auto) 0.2, Sodium 140, Potassium 3.7, Chloride 104, Carbon Dioxide 30, Anion Gap 9.7, BUN 9, Creatinine 1.00, Estimated Creat Clear 62, Estimated GFR 55 L, Est GFR ( Amer) 67, Glucose 169 H, Calcium 10.0, Total Bilirubin 0.7, AST 33, ALT 24, Alkaline Phosphatase 98, Troponin I < 0.01, Total Protein 7.5, Albumin 4.4, Globulin 3.1, Albumin/Globulin Ratio 1.4, Lipase 66 07/16/23 13:35: Lactate 1.6 07/16/23 15:00: Urine Color Yellow, Urine Appearance Clear, Urine pH 6.0, Ur Specific [place] 1.025, Urine Protein 1+, Urine Glucose (UA) Negative, Urine Ketones Negative, Urine Blood Trace-i, Urine Nitrate Negative, Urine Bilirubin Negative, Urine Urobilinogen 0.2, Ur Leukocyte Esterase Negative, Urine RBC Occasional, Urine WBC None, Ur Squamous Epith Cells Occasional, Urine Bacteria None 07/16/23 16:24: Troponin I < 0.01 Assessment and Plan *Assessment and plan (1) Bowel obstruction: Status: Acute Category: Medical Code(s): K56.609 - Unspecified intestinal obstruction, unspecified as to partial versus complete obstruction Plan Findings of acute bowel obstruction. Plan for initial attempt at nonoperative management with bowel rest, nasogastric tube, and serial abdominal x-rays. Patient could require operative intervention.
--- NOTE | 2023-07-16 18:18 | XR_ITS ---
PROCEDURE INFORMATION: Exam: XR Chest Exam date and time: 07/16/2023 6:23 PM Age: 68 years old Clinical indication: Device placement; Ng tube; Additional info: Ng tube placement TECHNIQUE: Imaging protocol: Radiologic exam of the chest. Views: 1 view. COMPARISON: CT LUNG SCREENING 07/21/2022 7:36 AM FINDINGS: Tubes, catheters and devices: NG tube in the stomach. Lungs: Unremarkable. No consolidation. Pleural spaces: Unremarkable. No pleural effusion. No pneumothorax. Heart/Mediastinum: Unremarkable. No cardiomegaly. Bones/joints: Unremarkable. IMPRESSION: NG tube in the stomach.
[2023-07-16] MEDS: LACTATED RINGERS 1000ML 1,000 ML 75 ML IV (18:44)
[2023-07-16 19:56] LABS: Troponin I < 0.01 ng/ml (0.00-0.034)
--- NOTE | 2023-07-16 20:35 | P.HP_ITS ---
History of Present Illness *Admission Date: 07/16/23 *Reason for visit:: abd pain *History of present illness: Patient is a 68-year-old female with PMHx of hypertension, COPD, CAD, and prior bowel obstruction requiring surgical resection presenting with concern for abdominal pain. She has had multiple previous abdominal surgeries. She has apparently previously had colon resection for benign disease. She had developed a ventral hernia and had mesh placed. Also she has previously undergone laparotomy with lysis of adhesions for bowel obstruction. This was all at outside facility. She had presented to this facility in 2017 with a bowel obstruction secondary to hernia recurrence with strangulated small bowel through the mesh. She required laparotomy with small bowel resection and primary closure done by Dr. Santana on 11/24/16. She was in her usual state of health until today at which time she had acute onset of abdominal pain with associated nausea and vomiting. This is mostly in the upper abdomen. She did have a bowel movement today prior to presentation. She has had emesis. The symptoms are similar to symptoms she has had with previous obstruction. She underwent CT scan of the abdomen pelvis which reveals dilated small bowel loops with a transition point in the pelvis consistent with small bowel obstruction likely related to adhesions. Dr. Santana had performed EGD and colonoscopy in 2018. She was found to have some sigmoid diverticulosis with normal-appearing colon anastomosis. There were some polyps noted which were hyperplastic. [facility] Disclaimer: The information contained in this section may have been updated after the patient was seen, as this information can be updated by other users. Medical History (Updated 07/17/23 @ 04:42 by Isacc Ogden APRN) Allergic rhinitis Tobacco abuse counseling Screening for lung cancer Nocturnal hypoxemia Dyspnea on exertion Pulmonary emphysema Allergic rhinitis, unspecified Smoking greater than 30 pack years Pulmonary nodule, left Tobacco abuse COPD (chronic obstructive pulmonary disease) Edema Surgical History (Updated 07/16/23 @ 22:17 by Sirena Guadalupe RN) H/O right heart catheterization Previous back surgery History of colonoscopy History of hysterectomy History of cholecystectomy H/O oral surgery History of colon surgery History of excision of lesion Family History Other Heart attack Social History Smoking Status: Current every day smoker tobacco type: cigarettes packs per day: 1 second hand exposure: No alcohol intake: never counseling provided: provider counseling substance use type: denies use current occupational status: retired Travel in the last 8 weeks: None household members: none housing: house current occupational exposures/hazards: No caffeine: No Review of Systems Review of Systems Review of systems:: pertinent systems reviewed and negative unless documented below Meds Home Medications and Allergies Home Medications Medication Instructions Recorded Confirmed Type aspirin 81 mg tablet,delayed 81 mg PO DAILY Supplement 08/28/17 07/16/23 History release (Adult Low Dose Aspirin) ipratropium 0.5 mg-albuterol 3 mg 3 ml inhalation QID PRN shortness 04/17/23 07/16/23 Rx (2.5 mg base)/3 mL nebulization of breath or wheezing 90 days #270 soln mL atorvastatin 80 mg tablet 80 mg PO DAILY Cholesterol #90 tabs 05/28/23 07/16/23 Rx varenicline 1 mg tablet (Chantix 1 mg PO BID #60 tabs 05/30/23 07/17/23 Rx Continuing Month Box) alendronate 70 mg tablet 70 mg PO WEEKLY 30 days #5 tabs 05/31/23 07/16/23 Rx benazepril 5 mg tablet 5 mg PO DAILY 30 days #30 tabs 05/31/23 07/16/23 Rx furosemide 20 mg tablet 20 mg PO BID Fluid 30 days #60 tabs 05/31/23 07/16/23 Rx gabapentin 300 mg capsule 300 mg PO Q8H nerve pain #90 caps 05/31/23 07/17/23 Rx metoprolol succinate 100 mg 100 mg PO DAILY High blood 05/31/23 07/16/23 Rx tablet,extended release 24 hr pressure 30 days #30 tabs omeprazole 20 mg capsule,delayed 20 mg PO BID GERD 30 days #60 caps 05/31/23 07/16/23 Rx release potassium chloride 10 mEq 10 meq PO DAILY 30 days #30 tabs 05/31/23 07/16/23 Rx tablet,extended release albuterol sulfate 90 mcg/actuation 1 inh inhalation QID PRN shortness 07/03/23 07/16/23 Rx aerosol inhaler of breath or wheezing 90 days #8.5 grams tiotropium 2.5 mcg-olodaterol 2.5 2 puff inhalation DAILY 90 days #4 07/03/23 07/17/23 Rx mcg/actuation mist for inhalation grams (Stiolto Respimat) New Prescriptions to Start Prescriptions: Allergies Allergy/AdvReac Type Severity Reaction Status Date / Time No Known Drug Allergies Allergy Unknown -- Verified 07/03/23 09:19 Exam Data for Last 24 hours Vital signs and Labs for Last 24 Hours: Temp Pulse Resp BP Pulse Ox O2 Del Method O2 Flow Rate 97.5 F L 81 20 123/65 87 L Nasal Cannula 3 07/16/23 19:55 07/16/23 19:55 07/16/23 19:55 07/16/23 19:55 07/16/23 19:30 07/16/23 19:55 07/16/23 19:55 Laboratory Results - last 24 hr 07/16/23 13:05: WBC 12.5 H, RBC 5.05, Hgb 16.6 H, Hct 49.7 H, MCV 98.5, MCH 33.0 H, MCHC 33.5, RDW 13.8, Plt Count 318, MPV 7.5, Neut % (Auto) 59.7, Lymph % (Auto) 35.6, [place] % (Auto) 2.9, Eos % (Auto) 0.6, Baso % (Auto) 1.2, Neut # (Auto) 7.5, Lymph # (Auto) 4.5, [place] # (Auto) 0.4, Eos # (Auto) 0.1, Baso # (Auto) 0.2, Sodium 140, Potassium 3.7, Chloride 104, Carbon Dioxide 30, Anion Gap 9.7, BUN 9, Creatinine 1.00, Estimated Creat Clear 62, Estimated GFR 55 L, Est GFR ( Amer) 67, Glucose 169 H, Calcium 10.0, Total Bilirubin 0.7, AST 33, ALT 24, Alkaline Phosphatase 98, Troponin I < 0.01, Total Protein 7.5, Albumin 4.4, Globulin 3.1, Albumin/Globulin Ratio 1.4, Lipase 66 07/16/23 13:35: Lactate 1.6 07/16/23 15:00: Urine Color Yellow, Urine Appearance Clear, Urine pH 6.0, Ur Specific [place] 1.025, Urine Protein 1+, Urine Glucose (UA) Negative, Urine Ketones Negative, Urine Blood Trace-i, Urine Nitrate Negative, Urine Bilirubin Negative, Urine Urobilinogen 0.2, Ur Leukocyte Esterase Negative, Urine RBC Occasional, Urine WBC None, Ur Squamous Epith Cells Occasional, Urine Bacteria None 07/16/23 16:24: Troponin I < 0.01 07/16/23 19:22: Troponin I < 0.01 I & O for Last 24 hours: Intake & Output 07/13/23 07/14/23 07/15/23 07/16/23 23:59 23:59 23:59 23:59 Weight 71.668 kg Constitutional Constitutional: moderate distress and cooperative *Routine HEENT Exam Head: Present normocephalic Eye: Present EOMI and PERRL ENT: Present mucous membranes moist *Routine Neck Exam Neck: Present supple; Absent lymphadenopathy *Routine Respiratory Exam Respiratory: Present CTA bilaterally *Routine Cardiovascular Exam Cardiovascular: Present RRR *Routine Abdominal Exam Abdominal: Present soft, tenderness and guarding *Routine Rectal Exam Rectal:: deferred *Routine Genitalia Exam Genitalia:: deferred *Routine Extremities Exam Extremities: Absent cyanosis, clubbing or edema *Routine Skin Exam Skin: Present warm; Absent rash *Routine Neurological Exam Neurological: Present alert and oriented X3 Routine Psychiatric Exam Psychiatric: Present good insight H&P: Result Imaging and Cardiology EKG: Status: image reviewed by me, Preliminary report and final report CT scan - abdomen: Status: image reviewed by me, Preliminary report and final report Assessment and Plan *Assessment and plan (1) Abdominal pain: Status: Acute Qualifiers: Abdominal location: unspecified location Qualified Code(s): R10.9 - Unspecified abdominal pain Category: Medical Code(s): R10.9 - Unspecified abdominal pain (2) Bowel obstruction: Status: Acute Qualifiers: Intestinal obstruction extent: unspecified extent Intestinal obstruction type: other intestinal obstruction Qualified Code(s): K56.699 - Other intestinal obstruction unspecified as to partial versus complete obstruction Category: Medical Code(s): K56.609 - Unspecified intestinal obstruction, unspecified as to partial versus complete obstruction (3) Nausea & vomiting: Status: Acute Qualifiers: Vomiting type: unspecified Qualified Code(s): R11.2 - Nausea with vomiting, unspecified Category: Medical Code(s): R11.2 - Nausea with vomiting, unspecified (4) Hypertension: Status: Acute Qualifiers: Hypertension type: unspecified Qualified Code(s): I10 - Essential (primary) hypertension Category: Medical Code(s): I10 - Essential (primary) hypertension (5) COPD (chronic obstructive pulmonary disease): Status: Chronic Qualifiers: COPD type: emphysema Emphysema type: unspecified Qualified Code(s): J43.9 - Emphysema, unspecified Category: Medical Code(s): J44.9 - Chronic obstructive pulmonary disease, unspecified (6) Tobacco dependence syndrome: Status: Acute Category: Medical Code(s): F17.200 - Nicotine dependence, unspecified, uncomplicated Plan 68-year-old female with PMHx of hypertension, COPD, CAD, and prior bowel obstruction requiring surgical resection presenting with concern for abdominal pain. She has had multiple previous abdominal surgeries. She has apparently previously had colon resection for benign disease. She had developed a ventral hernia and had mesh placed. Also she has previously undergone laparotomy with lysis of adhesions for bowel obstruction. Findings of acute bowel obstruction. Discussed with ED and surgeon electrical automation engineer the need for admission and bowel rest. Medicine agreed to admit. Plan for initial attempt at nonoperative management with bowel rest, nasogastric tube, and serial abdominal x-rays. -Abdominal pain with nausea and vomiting, secondary to small bowel obstruction: Admit patient for medical management. Surgery consult. Recommendations in place. NG tube to low intermittent suction. Checks x-ray verified placement Keep n.p.o. Zofran for nausea as needed Pain management. Morphine IV Continue IV fluid. Leukocytosis suspected reactive. repeat labs in the morning Vital signs per unit protocol History of hypertension, COPD: Condition reviewed and stable. Continue management Maximize O2 saturation. Currently on 3 L nasal cannula. Nebulized as needed -Tobacco dependence On nicotine patch SCD for DVT prophylaxis. On Protonix for GI protection Full code Rounded on patient after nurse practitioner. Personally examined and interviewed patient. Agree with exam findings and care plan as documented.
--- NOTE | 2023-07-16 21:26 | PC.NURSE ---
Patient arrived to floor via wheelchair from ED at 20:15.
[2023-07-17] MEDS: MORPHINE 2MG/ML SYRINGE 2 MG IV ×4 (02:12→23:08)
[2023-07-17 04:00] VITALS: BP 134/76; PULSE 83; RESP 16; TEMP 36.9; O2SAT 91; BMI 29.5
[2023-07-17] MEDS: ONDANSETRON 4MG/2ML VIAL 4 MG IV ×2 (04:26→18:33)
--- NOTE | 2023-07-17 05:04 | PC.NURSE ---
Patient is alert and oriented. 16 Fr NG to Right jackelin @ 63 to intermittent suction, 800 out so far, greenish liquid. Abdomen soft and nontender. Pt has complained of pain, treated per jun. Pt complained of nausea, treated per jun. Pt has not vomited. Pt ambulated to restroom with assistance. Bed alarm on. Call light in reach.
--- NOTE | 2023-07-17 06:00 | PC.NURSE ---
Spoke with Cinthia hospice care consultant nurse to notify of passing.
--- NOTE | 2023-07-17 06:54 | XR_ITS ---
FINAL REPORT CLINICAL HISTORY: ABDOMINAL PAIN AND BLOATING COMPARISON: None FINDINGS: Chest: The heart and mediastinal within normal limits. There is mild basilar scarring or atelectasis. There is no pneumothorax. Osseous structures are unremarkable. Abdomen: AP and upright views of the abdomen were obtained. A nasogastric tube is present with the tip in the stomach. There are several loops of air-filled distended small bowel in the right upper quadrant. Bowel loops measure up to 4.6 cm. Contrast is noted in the decompressed urinary bladder. No abnormal calcifications are identified. IMPRESSION: No acute cardiopulmonary process. Abnormally distended loops of small bowel in the right upper quadrant concerning for early or partial small bowel obstruction. Recommend follow-up. Reviewed, Interpreted and Dictated by Ketan Yi MD Transcribed by Anali Griffin Authenticated and . [facility]
--- NOTE | 2023-07-17 06:58 | EXP.SURG.PN ---
Subjective Narrative: Patient with nausea overnight. Had approximately 800 cc out of nasogastric tube. Exam Data for Last 24 hours Vital signs and Labs for Last 24 Hours: Temp Pulse Resp BP Pulse Ox O2 Del Method O2 Flow Rate 98.4 F 83 16 134/76 91 L Nasal Cannula 3 07/17/23 04:00 07/17/23 04:00 07/17/23 04:00 07/17/23 04:00 07/17/23 04:00 07/17/23 04:56 07/17/23 04:56 Laboratory Results - last 24 hr 07/16/23 13:05: WBC 12.5 H, RBC 5.05, Hgb 16.6 H, Hct 49.7 H, MCV 98.5, MCH 33.0 H, MCHC 33.5, RDW 13.8, Plt Count 318, MPV 7.5, Neut % (Auto) 59.7, Lymph % (Auto) 35.6, [place] % (Auto) 2.9, Eos % (Auto) 0.6, Baso % (Auto) 1.2, Neut # (Auto) 7.5, Lymph # (Auto) 4.5, [place] # (Auto) 0.4, Eos # (Auto) 0.1, Baso # (Auto) 0.2, Sodium 140, Potassium 3.7, Chloride 104, Carbon Dioxide 30, Anion Gap 9.7, BUN 9, Creatinine 1.00, Estimated Creat Clear 62, Estimated GFR 55 L, Est GFR ( Amer) 67, Glucose 169 H, Calcium 10.0, Total Bilirubin 0.7, AST 33, ALT 24, Alkaline Phosphatase 98, Troponin I < 0.01, Total Protein 7.5, Albumin 4.4, Globulin 3.1, Albumin/Globulin Ratio 1.4, Lipase 66 07/16/23 13:35: Lactate 1.6 07/16/23 15:00: Urine Color Yellow, Urine Appearance Clear, Urine pH 6.0, Ur Specific [place] 1.025, Urine Protein 1+, Urine Glucose (UA) Negative, Urine Ketones Negative, Urine Blood Trace-i, Urine Nitrate Negative, Urine Bilirubin Negative, Urine Urobilinogen 0.2, Ur Leukocyte Esterase Negative, Urine RBC Occasional, Urine WBC None, Ur Squamous Epith Cells Occasional, Urine Bacteria None 07/16/23 16:24: Troponin I < 0.01 07/16/23 19:22: Troponin I < 0.01 I & O for Last 24 hours: Intake & Output 07/14/23 07/15/23 07/16/23 07/17/23 11:59 11:59 11:59 11:59 Intake Total 478 / 478 Output Total 800 / 800 Balance -322 / -322 Weight 166 lb 6.4 oz Constitutional Constitutional: no acute distress Progress Note: A&P Assessment and plan (1) Bowel obstruction: Status: Acute Assessment and plan: Check acute abdominal series today.
[2023-07-17 07:25] LABS: Basophils # 0.1 K/mm3 (0-0.2); Basophils % 0.5 % (0.1-2.0); Eosinophils % 0.1 % (0.1-12.0); Hematocrit 49.5 % (37.0-47.0); Hemoglobin 15.9 g/dL (12.2-16.2); Lymphocytes # 2.2 K/mm3 (0.7-4.5); Lymphocytes % 20.8 % (10-50); Mean Corpuscular HGB Conc 32.1 g/dL (31.8-35.4); Mean Corpuscular Hemoglobin 31.8 pg (27.0-31.2); Mean Platelet Volume 7.1 fl (7.4-10.4); Monocytes # 0.4 K/mm3 (0.1-1.0); Monocytes % 3.3 % (1.7-9.3); Neutrophils # 8.1 K/mm3 (1.8-7.8); Neutrophils % 75.3 % (37.0-80.0); Platelet Count 286 K/mm3 (142-424); White Blood Count 10.8 K/mm3 (4.8-10.8)
[2023-07-17 07:58] LABS: Alanine Aminotransferase 16 U/L (12-78); Albumin Level 3.9 g/dl (3.5-5.0); Albumin/Globulin Ratio 1.3 (1.1-1.8); Alkaline Phosphatase 83 U/L (38-126); Anion Gap 10.5 mEq/L (5-15); Aspartate Amino Transferase 28 U/L (14-36); Bilirubin,Total 0.6 mg/dl (0.2-1.3); Blood Urea Nitrogen 18 mg/dl (7-17); Calcium 9.8 mg/dl (8.4-10.2); Carbon Dioxide 32 mmol/L (22.0-30.0); Chloride 100 mmol/L (98-107); Creatinine Clearance Estimated 59 mL/min (50-200); Estimated Glomerular Filt Rate 50 ml/min (>60); GFR (African American) 60 ML/MIN (>60); Globulin 2.9 g/dL (1.3-3.2); Glucose 177 mg/dl (74-100); Magnesium 1.3 mg/dl (1.6-2.3); Potassium 3.5 mmoL/L (3.5-5.1); Sodium 139 mmol/L (136-145); Total Protein,Serum 6.8 g/dl (6.3-8.2)
[2023-07-17 08:00] VITALS: BP 130/86; PULSE 93; RESP 16; TEMP 36.9; O2SAT 91
--- NOTE | 2023-07-17 09:27 | PC.NURSE ---
Pt resting w/her eyes closed at this time, call light within reach.
[2023-07-17] MEDS: LACTATED RINGERS 1000ML 1,000 ML 75 ML IV (10:31)
[2023-07-17] MEDS: MAGNESIUM SULFATE IN WATER 2 GM/50 ML PIGGYBACK IV (10:32)
--- NOTE | 2023-07-17 12:40 | EXP.ACUTE.PN ---
Subjective *Date: 07/17/23 *Time: 14:03 Interval history: Having some improvement this morning. Still having output from her NG. Belly softer and less painful per report. Denies nausea or emesis this morning. Afebrile overnight. No gas or flatus as of yet. Medical Exam Vital signs and Labs for Last 24 Hours: Vital Signs Temp Pulse Pulse Resp BP BP Pulse Ox 07/17/23 11:05 07/17/23 08:40 07/17/23 08:40 07/17/23 08:00 98.5 F 93 H 16 130/86 91 L 07/17/23 07:00 07/17/23 04:56 07/17/23 04:00 98.4 F 83 16 134/76 91 L 07/17/23 03:00 07/17/23 01:00 07/16/23 23:00 07/16/23 21:00 07/16/23 20:20 98.0 F 80 18 121/80 97 07/16/23 20:00 07/16/23 19:55 97.5 F L 81 20 123/65 07/16/23 19:30 80 114/71 87 L 07/16/23 19:00 80 123/65 84 L 07/16/23 18:39 82 127/79 87 L 07/16/23 18:00 64 119/83 98 07/16/23 17:31 69 132/74 97 07/16/23 17:00 69 171/75 H 97 07/16/23 16:30 82 148/90 H 88 L 07/16/23 16:01 68 158/90 H 89 L 07/16/23 15:31 69 113/98 H 91 L 07/16/23 15:02 76 101/85 L 91 L 07/16/23 14:31 72 123/94 H 94 L 07/16/23 14:23 68 116/62 95 07/16/23 12:53 97.5 F L 94 H 18 138/88 95 O2 Del Method O2 Flow Rate 07/17/23 11:05 Nasal Cannula 3 07/17/23 08:40 Nasal Cannula 3 07/17/23 08:40 Nasal Cannula 3 07/17/23 08:00 Nasal Cannula 3 07/17/23 07:00 Nasal Cannula 3 07/17/23 04:56 Nasal Cannula 3 07/17/23 04:00 Nasal Cannula 3 07/17/23 03:00 Nasal Cannula 3 07/17/23 01:00 Nasal Cannula 3 07/16/23 23:00 Nasal Cannula 3 07/16/23 21:00 Nasal Cannula 3 07/16/23 20:20 Room Air 07/16/23 20:00 Nasal Cannula 3 07/16/23 19:55 Nasal Cannula 3 07/16/23 19:30 07/16/23 19:00 07/16/23 18:39 Nasal Cannula 2 07/16/23 18:00 Room Air 07/16/23 17:31 Room Air 07/16/23 17:00 Room Air 07/16/23 16:30 Room Air 07/16/23 16:01 Room Air 07/16/23 15:31 Room Air 07/16/23 15:02 Room Air 07/16/23 14:31 Room Air 07/16/23 14:23 Room Air 07/16/23 12:53 Room Air Intake and Output 07/16/23 07/17/23 07/17/23 23:59 07:59 15:59 Intake Total 478 / 803 325 / 803 Output Total 0 / 0 800 / 800 Balance 0 / 0 -322 / 3 325 / 3 Intake: Intake, Oral Amount 0 / 0 Intake, Total IV Amount 478 / 803 325 / 803 Lactated Ringers 1000ML 1,000 478 / 803 325 / 803 ml @ 75 mls/hr IV .[id number] [facility] Rx#:[id number] Output: Output, Urine Amount 0 / 0 0 / 0 Output, Gastric Drainage Amount 800 / 800 Right Nare 800 / 800 Other: Number of Unmeasured Voids 1 1 Weight 75.478 kg 75.478 kg Patient Weight 07/17/23 23:59 Weight 75.478 kg Laboratory Results - last 24 hr 07/16/23 13:05: WBC 12.5 H, RBC 5.05, Hgb 16.6 H, Hct 49.7 H, MCV 98.5, MCH 33.0 H, MCHC 33.5, RDW 13.8, Plt Count 318, MPV 7.5, Neut % (Auto) 59.7, Lymph % (Auto) 35.6, [place] % (Auto) 2.9, Eos % (Auto) 0.6, Baso % (Auto) 1.2, Neut # (Auto) 7.5, Lymph # (Auto) 4.5, [place] # (Auto) 0.4, Eos # (Auto) 0.1, Baso # (Auto) 0.2, Sodium 140, Potassium 3.7, Chloride 104, Carbon Dioxide 30, Anion Gap 9.7, BUN 9, Creatinine 1.00, Estimated Creat Clear 62, Estimated GFR 55 L, Est GFR ( Amer) 67, Glucose 169 H, Calcium 10.0, Total Bilirubin 0.7, AST 33, ALT 24, Alkaline Phosphatase 98, Troponin I < 0.01, Total Protein 7.5, Albumin 4.4, Globulin 3.1, Albumin/Globulin Ratio 1.4, Lipase 66 07/16/23 13:35: Lactate 1.6 07/16/23 15:00: Urine Color Yellow, Urine Appearance Clear, Urine pH 6.0, Ur Specific [place] 1.025, Urine Protein 1+, Urine Glucose (UA) Negative, Urine Ketones Negative, Urine Blood Trace-i, Urine Nitrate Negative, Urine Bilirubin Negative, Urine Urobilinogen 0.2, Ur Leukocyte Esterase Negative, Urine RBC Occasional, Urine WBC None, Ur Squamous Epith Cells Occasional, Urine Bacteria None 07/16/23 16:24: Troponin I < 0.01 07/16/23 19:22: Troponin I < 0.01 07/17/23 06:42: WBC 10.8, RBC 5.00, Hgb 15.9, Hct 49.5 H, MCV 99.0, MCH 31.8 H, MCHC 32.1, RDW 14.0, Plt Count 286, MPV 7.1 L, Neut % (Auto) 75.3, Lymph % (Auto) 20.8, [place] % (Auto) 3.3, Eos % (Auto) 0.1, Baso % (Auto) 0.5, Neut # (Auto) 8.1 H, Lymph # (Auto) 2.2, [place] # (Auto) 0.4, Eos # (Auto) 0.0, Baso # (Auto) 0.1, Sodium 139, Potassium 3.5, Chloride 100, Carbon Dioxide 32 H, Anion Gap 10.5, BUN 18 H D, Creatinine 1.10 H, Estimated Creat Clear 59, Estimated GFR 50 L, Est GFR ( Amer) 60, Glucose 177 H, Calcium 9.8, Magnesium 1.3 L, Total Bilirubin 0.6, AST 28, ALT 16 D, Alkaline Phosphatase 83, Total Protein 6.8, Albumin 3.9 D, Globulin 2.9, Albumin/Globulin Ratio 1.3 I & O for Labs for Last 24 Hours: Intake & Output 07/14/23 07/15/23 07/16/23 07/17/23 23:59 23:59 23:59 23:59 Intake Total 803 / 803 Output Total 0 / 0 800 / 800 Balance 0 / 0 Weight 75.478 kg 75.478 kg Constitutional: Present no acute distress, obese, chronically ill appearing and cooperative Head: Present atraumatic and normocephalic ENT: Present normal exam Comment:: NG in left nare Neck: Present normal inspection Respiratory: Present normal respiratory effort; Absent rhonchi, wheezes or crackles Cardiac: Present Reg Rate and Rhythm GI: Present soft, distention, tenderness (interval improvement from admission) and diminished bowel sounds Extremities: Present normal inspection and full ROM Skin: Present intact; Absent erythema Neuro: Present Grossly Intact, alert, awake, oriented x 3 and moves all extremities Assessment and Plan *Assessment and plan (1) Bowel obstruction: Status: Acute Qualifiers: Intestinal obstruction extent: unspecified extent Intestinal obstruction type: other intestinal obstruction Qualified Code(s): K56.699 - Other intestinal obstruction unspecified as to partial versus complete obstruction Category: Medical Code(s): K56.609 - Unspecified intestinal obstruction, unspecified as to partial versus complete obstruction (2) Abdominal pain: Status: Acute Qualifiers: Abdominal location: unspecified location Qualified Code(s): R10.9 - Unspecified abdominal pain Category: Medical Code(s): R10.9 - Unspecified abdominal pain (3) Nausea & vomiting: Status: Acute Qualifiers: Vomiting type: unspecified Qualified Code(s): R11.2 - Nausea with vomiting, unspecified Category: Medical Code(s): R11.2 - Nausea with vomiting, unspecified (4) Hypertension: Status: Acute Qualifiers: Hypertension type: unspecified Qualified Code(s): I10 - Essential (primary) hypertension Category: Medical Code(s): I10 - Essential (primary) hypertension (5) COPD (chronic obstructive pulmonary disease): Status: Chronic Qualifiers: COPD type: emphysema Emphysema type: unspecified Qualified Code(s): J43.9 - Emphysema, unspecified Category: Medical Code(s): J44.9 - Chronic obstructive pulmonary disease, unspecified (6) Tobacco dependence syndrome: Status: Acute Category: Medical Code(s): F17.200 - Nicotine dependence, unspecified, uncomplicated Plan 68-year-old female with PMHx of hypertension, COPD, CAD, and prior bowel obstruction requiring surgical resection presenting with concern for abdominal pain. She has had multiple previous abdominal surgeries. She has apparently previously had colon resection for benign disease. She had developed a ventral hernia and had mesh placed. Also she has previously undergone laparotomy with lysis of adhesions for bowel obstruction. Findings of acute bowel obstruction. 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 Plan for initial attempt at nonoperative management with bowel rest, nasogastric tube, and serial abdominal x-rays. Continues to require patient management. Problems addressed as follows: -Abdominal pain with nausea and vomiting, secondary to small bowel obstruction: Surgery consulted, appreciate their recommendations. Discussed case, recommend continuing NG to low intermittent suction. No flatus or bowel movement as of yet. Continue n.p.o. Zofran for nausea as needed Morphine IV 2 mg as needed every 4 hours, monitor for toxicity. Continue maintenance IV fluids 75 cc/h of lactated Ringer's leukocytosis improved this morning to 10. -Repeat CBC, CMP, magnesium ordered for the morning. Hypomagnesemia: Magnesium 1.3 this morning. Will replace IV 2 g. Repeat labs with magnesium and BMP ordered for 4 PM. History of hypertension, COPD: Condition reviewed and stable. Continue management Maximize O2 saturation. Currently on 3 L nasal cannula. Goal sats greater 90%. DuoNebs every 6 hours as needed nebulized as needed, continue daily maintenance inhaler with Tiotropium/olodaterol, 2 puffs daily Holding hypertensive medication given patient is n.p.o. and normotensive. -Tobacco dependence: On nicotine patch SCD for DVT prophylaxis. On Protonix for GI protection Full code
--- NOTE | 2023-07-17 15:21 | EXP.SURG.PN ---
Subjective Narrative: Patient's NG tube inadvertently came out this afternoon. She does state that she is passing a little bit of gas. She has had some pain (mild) in the upper abdomen. Acute abdominal series shows some dilated loops of bowel in the right upper quadrant. Exam Data for Last 24 hours Vital signs and Labs for Last 24 Hours: Temp Pulse Resp BP Pulse Ox O2 Del Method O2 Flow Rate 98.5 F 93 H 16 130/86 91 L Room Air 3 07/17/23 08:00 07/17/23 08:00 07/17/23 08:00 07/17/23 08:00 07/17/23 08:00 07/17/23 13:00 07/17/23 11:05 Laboratory Results - last 24 hr 07/16/23 13:05: Troponin I < 0.01 07/16/23 15:00: Urine Color Yellow, Urine Appearance Clear, Urine pH 6.0, Ur Specific [place] 1.025, Urine Protein 1+, Urine Glucose (UA) Negative, Urine Ketones Negative, Urine Blood Trace-i, Urine Nitrate Negative, Urine Bilirubin Negative, Urine Urobilinogen 0.2, Ur Leukocyte Esterase Negative, Urine RBC Occasional, Urine WBC None, Ur Squamous Epith Cells Occasional, Urine Bacteria None 07/16/23 16:24: Troponin I < 0.01 07/16/23 19:22: Troponin I < 0.01 07/17/23 06:42: WBC 10.8, RBC 5.00, Hgb 15.9, Hct 49.5 H, MCV 99.0, MCH 31.8 H, MCHC 32.1, RDW 14.0, Plt Count 286, MPV 7.1 L, Neut % (Auto) 75.3, Lymph % (Auto) 20.8, [place] % (Auto) 3.3, Eos % (Auto) 0.1, Baso % (Auto) 0.5, Neut # (Auto) 8.1 H, Lymph # (Auto) 2.2, [place] # (Auto) 0.4, Eos # (Auto) 0.0, Baso # (Auto) 0.1, Sodium 139, Potassium 3.5, Chloride 100, Carbon Dioxide 32 H, Anion Gap 10.5, BUN 18 H D, Creatinine 1.10 H, Estimated Creat Clear 59, Estimated GFR 50 L, Est GFR ( Amer) 60, Glucose 177 H, Calcium 9.8, Magnesium 1.3 L, Total Bilirubin 0.6, AST 28, ALT 16 D, Alkaline Phosphatase 83, Total Protein 6.8, Albumin 3.9 D, Globulin 2.9, Albumin/Globulin Ratio 1.3 I & O for Last 24 hours: Intake & Output 07/15/23 07/16/23 07/17/23 07/18/23 11:59 11:59 11:59 11:59 Intake Total 803 / 803 0 / 0 Output Total 800 / 800 200 / 200 Balance -200 / -200 Weight 166 lb 6.4 oz *Routine Abdominal Exam Abdominal: Present soft Progress Note: A&P Assessment and plan (1) Abdominal pain: Status: Acute (2) Bowel obstruction: Status: Acute Assessment and plan: Plan for replacement of nasogastric tube. She may chew gum. She may ambulate and this is encouraged with nasogastric tube clamped. If diagnosis remains questionable whether she has resolving partial small bowel obstruction may need small bowel follow-through. (3) Nausea & vomiting: Status: Acute (4) Hypertension: Status: Acute (5) COPD (chronic obstructive pulmonary disease): Status: Chronic (6) Tobacco dependence syndrome: Status: Acute
--- NOTE | 2023-07-17 15:52 | XR_ITS ---
FINAL REPORT CLINICAL HISTORY: check ng tube placement COMPARISON: 9 hours prior FINDINGS: SINGLE VIEW ABDOMEN A single view of the abdomen was obtained. NG tube is present with the tip in the left upper quadrant, probably in the stomach. There are persistent abnormally dilated loops of small bowel in the right upper quadrant now measuring up to 4.9 cm in diameter, more distended than on the previous exam. No abnormal calcifications are identified. IMPRESSION: NG tube tip probably in the stomach. Persistent abnormally dilated loops of small bowel, more distended than previous. Reviewed, Interpreted and Dictated by Ketan Yi MD Transcribed by Anali Griffin Authenticated and [facility]
[2023-07-17 16:00] VITALS: BP 103/72; PULSE 114; RESP 16; TEMP 36.5; O2SAT 91
--- NOTE | 2023-07-17 16:59 | PC.NURSE ---
VS stable, patient able to ambulate in room. NG tube came out during shift,. new tube reinserted, anchored at 60. KUB to check placement. Pain noted in right upper quadrant, relieved with prn pain medication. Ok to clamp ng tube for meds and for patient to ambulate around halls per Dr. Curry and Dr. Trivedi. 1000 emptied out of suction cannister
[2023-07-17 18:08] LABS: Chloride 100 mmol/L (98-107); Potassium 3.7 mmoL/L (3.5-5.1); Sodium 139 mmol/L (136-145)
[2023-07-17 18:11] LABS: Anion Gap 12.7 mEq/L (5-15); Blood Urea Nitrogen 26 mg/dl (7-17); Calcium 9.9 mg/dl (8.4-10.2); Carbon Dioxide 30 mmol/L (22.0-30.0); Creatinine Clearance Estimated 65 mL/min (50-200); Estimated Glomerular Filt Rate 55 ml/min (>60); GFR (African American) 67 ML/MIN (>60); Glucose 175 mg/dl (74-100); Magnesium 2.2 mg/dl (1.6-2.3)
[2023-07-17 20:00] VITALS: BP 121/80; PULSE 100; RESP 18; TEMP 36.6; O2SAT 91
[2023-07-17] MEDS: GABAPENTIN 300MG CAPSULE 300 MG PO (20:48)
[2023-07-17] MEDS: MORPHINE 4MG/ML SYRINGE 4 MG IV (21:02)
[2023-07-18] MEDS: LACTATED RINGERS 1000ML 1,000 ML 75 ML IV ×2 (03:22→18:05)
[2023-07-18 04:00] VITALS: BP 108/79; PULSE 106; RESP 18; TEMP 36.8; O2SAT 90; BMI 29.5
--- NOTE | 2023-07-18 06:00 | XR_ITS ---
PROCEDURE INFORMATION: Exam: XR Complete Acute Abdomen Series Including Chest Exam date and time: 07/18/2023 5:49 AM Age: 68 years old Clinical indication: Constipation; Additional info: Bowel obstruction TECHNIQUE: Imaging protocol: Radiologic exam. Complete acute abdomen series, including 2 or more views of the abdomen and a single view chest. COMPARISON: CR XR KUB 07/17/2023 4:18 PM FINDINGS: Tubes, catheters and devices: There is an enteric tube projecting into the stomach. Lungs: There is mild left basilar atelectasis. Pleural spaces: Normal. No pleural effusions. No pneumothorax. Heart/Mediastinum: Normal. No cardiomegaly. Gastrointestinal tract: Multiple dilated loops of small bowel are again seen with air-fluid levels. Intraperitoneal space: Normal. No free air. Bones/joints: Normal. No acute fracture. Soft tissues: Normal. IMPRESSION: Small bowel obstruction which is similar in appearance.
[2023-07-18] MEDS: PHENOL THROAT SPRAY 177 ML BOTTLE MM (06:25)
[2023-07-18] MEDS: MORPHINE 2MG/ML SYRINGE 2 MG IV (06:29)
[2023-07-18] MEDS: ONDANSETRON 4MG/2ML VIAL 4 MG IV ×2 (06:29→23:02)
[2023-07-18 06:39] LABS: Basophils # 0.1 K/mm3 (0-0.2); Basophils % 1.6 % (0.1-2.0); Eosinophils % 0.1 % (0.1-12.0); Hematocrit 48.2 % (37.0-47.0); Hemoglobin 15.3 g/dL (12.2-16.2); Lymphocytes # 1.9 K/mm3 (0.7-4.5); Lymphocytes % 31.9 % (10-50); Mean Corpuscular HGB Conc 31.8 g/dL (31.8-35.4); Mean Corpuscular Hemoglobin 31.1 pg (27.0-31.2); Mean Corpuscular Volume 97.8 fl (81-99); Mean Platelet Volume 7.3 fl (7.4-10.4); Monocytes # 0.5 K/mm3 (0.1-1.0); Monocytes % 9.1 % (1.7-9.3); Neutrophils # 3.4 K/mm3 (1.8-7.8); Neutrophils % 57.3 % (37.0-80.0); Platelet Count 301 K/mm3 (142-424); Red Blood Count 4.93 M/mm3 (4.20-5.40); Red Cell Distribution Width 14.2 % (11.5-17.5); White Blood Count 5.9 K/mm3 (4.8-10.8)
[2023-07-18 06:52] LABS: Chloride 97 mmol/L (98-107); Potassium 3.4 mmoL/L (3.5-5.1); Sodium 138 mmol/L (136-145)
[2023-07-18 06:55] LABS: Alanine Aminotransferase 15 U/L (12-78); Alkaline Phosphatase 78 U/L (38-126); Anion Gap 8.4 mEq/L (5-15); Aspartate Amino Transferase 27 U/L (14-36); Bilirubin,Total 0.6 mg/dl (0.2-1.3); Blood Urea Nitrogen 38 mg/dl (7-17); Calcium 9.5 mg/dl (8.4-10.2); Carbon Dioxide 36 mmol/L (22.0-30.0); Creatinine Clearance Estimated 50 mL/min (50-200); Estimated Glomerular Filt Rate 41 ml/min (>60); GFR (African American) 49 ML/MIN (>60); Glucose 153 mg/dl (74-100)
[2023-07-18 06:56] LABS: Albumin Level 3.6 g/dl (3.5-5.0); Albumin/Globulin Ratio 1.4 (1.1-1.8); Globulin 2.6 g/dL (1.3-3.2); Magnesium 2.2 mg/dl (1.6-2.3); Total Protein,Serum 6.2 g/dl (6.3-8.2)
--- NOTE | 2023-07-18 07:21 | EXP.ACUTE.PN ---
Subjective *Date: 07/18/23 *Time: 12:23 Interval history: Still having nausea. Discussed case with surgery, concern for partial obstruction. Continue to remain NPO. Afebrile overnight. No barry emesis. Patient does report an episode of passing gas. Electrolyte disturbances noted today with lower potassium. Continue IV fluids. On room air and stable from a respiratory standpoint. Medical Exam Vital signs and Labs for Last 24 Hours: Vital Signs Temp Pulse Resp BP Pulse Ox O2 Del Method O2 Flow Rate 07/18/23 05:00 Nasal Cannula 3 07/18/23 04:00 98.2 F 106 H 18 108/79 L 90 L Nasal Cannula 3 07/18/23 03:00 Nasal Cannula 3 07/18/23 01:00 Nasal Cannula 3 07/17/23 23:00 Nasal Cannula 3 07/17/23 21:00 Nasal Cannula 3 07/17/23 20:00 Nasal Cannula 3 07/17/23 20:00 98 F 100 H 18 121/80 91 L Nasal Cannula 3 07/17/23 18:51 Nasal Cannula 3 07/17/23 17:05 Nasal Cannula 3 07/17/23 16:00 97.7 F 114 H 16 103/72 L 91 L Nasal Cannula 3 07/17/23 15:00 Nasal Cannula 3 07/17/23 13:00 Nasal Cannula 3 07/17/23 11:05 Nasal Cannula 3 07/17/23 08:40 Nasal Cannula 3 07/17/23 08:40 Nasal Cannula 3 07/17/23 08:00 98.5 F 93 H 16 130/86 91 L Nasal Cannula 3 Intake and Output 07/17/23 07/17/23 07/18/23 15:59 23:59 07:59 Intake Total 2057 [id number] 522 / 522 Output Total 200 / 1700 700 / 1700 800 / 800 Balance 125 / 358 33 / 358 -278 / -278 Intake: Intake, Oral Amount 0 / 0 0 / 0 Intake, Total IV Amount 2057 [id number] 522 / 522 Lactated Ringers 1000ML 1,000 2057 [id number] 522 / 522 ml @ 75 mls/hr IV .[id number] [facility] Rx#:[id number] Output: Output, Urine Amount 200 / 200 Output, Gastric Drainage Amount 700 / 1500 800 / 800 Right Nare 700 / 1500 800 / 800 Other: Number of Voids 1 Number of Unmeasured Voids 1 Weight 75.523 kg Patient Weight 07/18/23 23:59 Weight 75.523 kg Laboratory Results - last 24 hr 07/17/23 06:42: WBC 10.8, RBC 5.00, Hgb 15.9, Hct 49.5 H, MCV 99.0, MCH 31.8 H, MCHC 32.1, RDW 14.0, Plt Count 286, MPV 7.1 L, Neut % (Auto) 75.3, Lymph % (Auto) 20.8, [place] % (Auto) 3.3, Eos % (Auto) 0.1, Baso % (Auto) 0.5, Neut # (Auto) 8.1 H, Lymph # (Auto) 2.2, [place] # (Auto) 0.4, Eos # (Auto) 0.0, Baso # (Auto) 0.1, Sodium 139, Potassium 3.5, Chloride 100, Carbon Dioxide 32 H, Anion Gap 10.5, BUN 18 H D, Creatinine 1.10 H, Estimated Creat Clear 59, Estimated GFR 50 L, Est GFR ( Amer) 60, Glucose 177 H, Calcium 9.8, Magnesium 1.3 L, Total Bilirubin 0.6, AST 28, ALT 16 D, Alkaline Phosphatase 83, Total Protein 6.8, Albumin 3.9 D, Globulin 2.9, Albumin/Globulin Ratio 1.3 07/17/23 16:48: Sodium 139, Potassium 3.7, Chloride 100, Carbon Dioxide 30, Anion Gap 12.7, BUN 26 H D, Creatinine 1.00, Estimated Creat Clear 65, Estimated GFR 55 L, Est GFR ( Amer) 67, Glucose 175 H, Calcium 9.9, Magnesium 2.2 D 07/18/23 05:29: WBC 5.9 D, RBC 4.93, Hgb 15.3, Hct 48.2 H, MCV 97.8, MCH 31.1, MCHC 31.8, RDW 14.2, Plt Count 301, MPV 7.3 L, Neut % (Auto) 57.3, Lymph % (Auto) 31.9, [place] % (Auto) 9.1, Eos % (Auto) 0.1, Baso % (Auto) 1.6, Neut # (Auto) 3.4, Lymph # (Auto) 1.9, [place] # (Auto) 0.5, Eos # (Auto) 0.0, Baso # (Auto) 0.1 I & O for Labs for Last 24 Hours: Intake & Output 07/15/23 07/16/23 07/17/23 07/18/23 23:59 23:59 23:59 23:59 Intake Total 1536 / 2058 522 / 522 Output Total 0 / 0 1700 / 1700 800 / 800 Balance 0 / 0 -164 / 358 -278 / -278 Weight 75.478 kg 75.478 kg 75.523 kg Constitutional: Present no acute distress, obese, chronically ill appearing and cooperative Head: Present atraumatic and normocephalic ENT: Present normal exam Comment:: NG in left nare Neck: Present normal inspection Respiratory: Present normal respiratory effort; Absent rhonchi, wheezes or crackles Cardiac: Present Reg Rate and Rhythm GI: Present soft, distention, tenderness (No improvement the past 24 hours) and diminished bowel sounds Extremities: Present normal inspection and full ROM Skin: Present intact; Absent erythema Neuro: Present Grossly Intact, alert, awake, oriented x 3 and moves all extremities Assessment and Plan *Assessment and plan (1) Bowel obstruction: Status: Acute Qualifiers: Intestinal obstruction extent: unspecified extent Intestinal obstruction type: other intestinal obstruction Qualified Code(s): K56.699 - Other intestinal obstruction unspecified as to partial versus complete obstruction Category: Medical Code(s): K56.609 - Unspecified intestinal obstruction, unspecified as to partial versus complete obstruction (2) Abdominal pain: Status: Acute Qualifiers: Abdominal location: unspecified location Qualified Code(s): R10.9 - Unspecified abdominal pain Category: Medical Code(s): R10.9 - Unspecified abdominal pain (3) Nausea & vomiting: Status: Acute Qualifiers: Vomiting type: unspecified Qualified Code(s): R11.2 - Nausea with vomiting, unspecified Category: Medical Code(s): R11.2 - Nausea with vomiting, unspecified (4) Hypertension: Status: Acute Qualifiers: Hypertension type: unspecified Qualified Code(s): I10 - Essential (primary) hypertension Category: Medical Code(s): I10 - Essential (primary) hypertension (5) COPD (chronic obstructive pulmonary disease): Status: Chronic Qualifiers: COPD type: emphysema Emphysema type: unspecified Qualified Code(s): J43.9 - Emphysema, unspecified Category: Medical Code(s): J44.9 - Chronic obstructive pulmonary disease, unspecified (6) Tobacco dependence syndrome: Status: Acute Category: Medical Code(s): F17.200 - Nicotine dependence, unspecified, uncomplicated Plan 68-year-old female with PMHx of hypertension, COPD, CAD, and prior bowel obstruction requiring surgical resection presenting with concern for abdominal pain. She has had multiple previous abdominal surgeries. She has apparently previously had colon resection for benign disease. She had developed a ventral hernia and had mesh placed. Also she has previously undergone laparotomy with lysis of adhesions for bowel obstruction. Findings of acute bowel obstruction. Discussed with ED and surgeon applications systems analyst. Plan for initial attempt at nonoperative management with bowel rest, nasogastric tube, and serial abdominal x-rays. Continues to require patient management. Problems addressed as follows: -Abdominal pain with nausea and vomiting, secondary to small bowel obstruction: Surgery consulted, appreciate their recommendations. Discussed case, recommend continuing NG to low intermittent suction. Will perform p.o. contrast swallow this evening with serial imaging overnight. Pending findings, may proceed with surgery tomorrow. Continue n.p.o. Zofran for nausea as needed Morphine IV 2 mg as needed every 4 hours, monitor for toxicity. Continue maintenance IV fluids 75 cc/h of lactated Ringer's leukocytosis stable this morning at 10 Repeat CBC, CMP, magnesium ordered for the morning. Hypomagnesemia Hypokalemia - magnesium 2.2 this morning. No repletion this morning - Potassium 3.4. Repeat labs in the morning, will consider replacement tomorrow if potassium even lower History of hypertension, COPD: Condition reviewed and stable. Continue management Maximize O2 saturation. Currently on 3 L nasal cannula. Goal sats greater 90%. DuoNebs every 6 hours as needed nebulized as needed, continue daily maintenance inhaler with Tiotropium/olodaterol, 2 puffs daily Holding hypertensive medication given patient is n.p.o. and normotensive. -Tobacco dependence: On nicotine patch SCD for DVT prophylaxis. On Protonix for GI protection Full code NPO
[2023-07-18 07:43] VITALS: BP 113/74; PULSE 108; RESP 22; TEMP 36.3; O2SAT 90
[2023-07-18 08:33] VITALS: BMI 29.5
--- NOTE | 2023-07-18 08:49 | EXP.SURG.PN ---
Subjective Patient reports: no new complaints Narrative: She states that she feels slightly better . Small amount of flatus noted. Exam Data for Last 24 hours Vital signs and Labs for Last 24 Hours: Temp Pulse Resp BP Pulse Ox O2 Del Method O2 Flow Rate 97.4 F L 108 H 22 113/74 90 L Room Air 3 07/18/23 07:43 07/18/23 07:43 07/18/23 07:43 07/18/23 07:43 07/18/23 07:43 07/18/23 07:43 07/18/23 05:00 Laboratory Results - last 24 hr 07/17/23 16:48: Sodium 139, Potassium 3.7, Chloride 100, Carbon Dioxide 30, Anion Gap 12.7, BUN 26 H D, Creatinine 1.00, Estimated Creat Clear 65, Estimated GFR 55 L, Est GFR ( Amer) 67, Glucose 175 H, Calcium 9.9, Magnesium 2.2 D 07/18/23 05:29: WBC 5.9 D, RBC 4.93, Hgb 15.3, Hct 48.2 H, MCV 97.8, MCH 31.1, MCHC 31.8, RDW 14.2, Plt Count 301, MPV 7.3 L, Neut % (Auto) 57.3, Lymph % (Auto) 31.9, [place] % (Auto) 9.1, Eos % (Auto) 0.1, Baso % (Auto) 1.6, Neut # (Auto) 3.4, Lymph # (Auto) 1.9, [place] # (Auto) 0.5, Eos # (Auto) 0.0, Baso # (Auto) 0.1, Sodium 138, Potassium 3.4 L, Chloride 97 L, Carbon Dioxide 36 H, Anion Gap 8.4, BUN 38 H D, Creatinine 1.30 H D, Estimated Creat Clear 50, Estimated GFR 41 L, Est GFR ( Amer) 49 L D, Glucose 153 H, Calcium 9.5, Magnesium 2.2, Total Bilirubin 0.6, AST 27, ALT 15, Alkaline Phosphatase 78, Total Protein 6.2 L, Albumin 3.6, Globulin 2.6, Albumin/Globulin Ratio 1.4 I & O for Last 24 hours: Intake & Output 07/15/23 07/16/23 07/17/23 07/18/23 11:59 11:59 11:59 11:59 Intake Total 803 / 803 1255 / 1255 Output Total 800 / 800 1700 / 1700 Balance -445 / -445 Weight 166 lb 6.4 oz 166 lb 7.889 oz Radiology Reports for the Last 24 Hours: AM films reveal persistent dilated loops of small bowel with some air-fluid levels. Air within colon noted. Constitutional Constitutional: no acute distress *Routine Respiratory Exam Respiratory: Absent respiratory distress *Routine Cardiovascular Exam Comments: Mildly tachycardic *Routine Abdominal Exam Abdominal: Present soft Comments: Some tenderness to moderate/deep palpation. Minimal distention. Progress Note: A&P Assessment and plan (1) Bowel obstruction: Status: Acute Assessment and plan: The patient states that she feels a little better . She reports a small amount of flatus. Morning films reveal fairly significant/persistent dilated loops of small bowel; however, air within colon noted. Continue nasogastric decompression for now Modified Gastrografin challenge with follow-up films tomorrow morning Continue serial exams (2) Abdominal pain: Status: Acute Assessment and plan: Mild improvement noted
[2023-07-18] MEDS: GABAPENTIN 300MG CAPSULE 300 MG PO ×3 (09:43→20:05)
--- NOTE | 2023-07-18 10:33 | PC.NURSE ---
pt asked for ice chips. When given 1/2 cup she expressed her frustration with being NPO and told me she would wait until her daughter arrived to hospital to have her bring water. I explained to pt she was NPO and could not have water. Nurse Cueto was made aware of conversation.
--- NOTE | 2023-07-18 14:25 | PC.NURSE ---
Patient ambulated 50 feet around hospital room, tolerated well
[2023-07-18 15:50] VITALS: BP 138/94; PULSE 92; RESP 20; TEMP 36.9; O2SAT 91
--- NOTE | 2023-07-18 18:16 | PC.NURSE ---
600 cc emptied out of suction cannister from ng tube. NG tube stable in right nare at 60. VS stable and patient remained on 3LNC. Patient able to sit in chair for some of shift. Bowel sounds absent in left but hypoactive on right. Abdomen soft but bloated. Some tenderness noted on palpation. No pain reported.
[2023-07-18 20:00] VITALS: BP 131/76; PULSE 118; RESP 18; TEMP 36.7; O2SAT 89
--- NOTE | 2023-07-18 20:52 | PC.NURSE ---
this nurse received a call from Dr. aSntana at this time instructing this nurse to leave suction off and NG tube clamped for as long as the pt is able to tolerate no suction after giving pt gastro graft @ [id number].
[2023-07-18] MEDS: DIATRIZOATE MEG 66% & DIATRIZOATE NA 10% 30ML UDC 120 ML PO (22:32)
--- NOTE | 2023-07-18 22:43 | PC.NURSE ---
This nurse administered gastrografin in pt NG tube, Pt tolerated well. Pt NG tube is currently removed form suction and clamped.
--- NOTE | 2023-07-18 23:02 | PC.NURSE ---
Pt reports pain and nausea, and is not tolerating medication well, zofran administered at this time. no increasing distention noted at this time. Pt admits to eating ice chips and taking a drink of water. low wall suction applied at this time.
[2023-07-19] VITALS (19 sets, daily range): BP systolic 115–152; BP diastolic 50–90; PULSE 86–117; RESP 16–18; TEMP 36.6–43; O2SAT 89–110; BMI 29.5
--- NOTE | 2023-07-19 04:25 | PC.NURSE ---
Pt is alert and oriented x4 and currently on 3L of O2. Pt denies pain at this time. NG tube still in place and pt is tolerating it well. Pt has rested intermittently. Pt has had liquid diarrhea and states that it has gave her some relief.
--- NOTE | 2023-07-19 06:00 | XR_ITS ---
PROCEDURE INFORMATION: Exam: XR Complete Acute Abdomen Series Including Chest Exam date and time: 07/19/2023 5:49 AM Age: 68 years old Clinical indication: Abdominal pain; Additional info: Sbo TECHNIQUE: Imaging protocol: Radiologic exam. Complete acute abdomen series, including 2 or more views of the abdomen and a single view chest. COMPARISON: CR XR ACUTE ABDOMEN SERIES 07/18/2023 5:49 AM FINDINGS: Lungs: Normal. No consolidation. Pleural spaces: Normal. No pleural effusions. No pneumothorax. Heart/Mediastinum: Normal. No cardiomegaly. Gastrointestinal tract: A dilated loops of small bowel are seen throughout the abdomen and pelvis. Oral contrast is present within the colon. Intraperitoneal space: Normal. No free air. Bones/joints: Normal. No acute fracture. Soft tissues: Normal. IMPRESSION: Persistent small bowel obstruction.
[2023-07-19 06:19] LABS: Alanine Aminotransferase 13 U/L (12-78); Albumin Level 3.2 g/dl (3.5-5.0); Albumin/Globulin Ratio 1.3 (1.1-1.8); Alkaline Phosphatase 60 U/L (38-126); Anion Gap 8.3 mEq/L (5-15); Aspartate Amino Transferase 25 U/L (14-36); Bilirubin,Total 0.7 mg/dl (0.2-1.3); Blood Urea Nitrogen 46 mg/dl (7-17); Calcium 9.4 mg/dl (8.4-10.2); Carbon Dioxide 38 mmol/L (22.0-30.0); Chloride 97 mmol/L (98-107); Creatinine Clearance Estimated 54 mL/min (50-200); Estimated Glomerular Filt Rate 45 ml/min (>60); GFR (African American) 54 ML/MIN (>60); Globulin 2.5 g/dL (1.3-3.2); Glucose 121 mg/dl (74-100); Potassium 3.3 mmoL/L (3.5-5.1); Sodium 140 mmol/L (136-145); Total Protein,Serum 5.7 g/dl (6.3-8.2)
[2023-07-19 06:20] LABS: Magnesium 2.2 mg/dl (1.6-2.3)
[2023-07-19 06:34] LABS: Basophils % 0.7 % (0.1-2.0); Eosinophils % 0.3 % (0.1-12.0); Hematocrit 42.5 % (37.0-47.0); Hemoglobin 13.7 g/dL (12.2-16.2); Lymphocytes # 1.7 K/mm3 (0.7-4.5); Lymphocytes % 31.3 % (10-50); Mean Corpuscular HGB Conc 32.2 g/dL (31.8-35.4); Mean Corpuscular Hemoglobin 31.8 pg (27.0-31.2); Mean Corpuscular Volume 98.8 fl (81-99); Mean Platelet Volume 7.9 fl (7.4-10.4); Monocytes # 0.7 K/mm3 (0.1-1.0); Monocytes % 12.4 % (1.7-9.3); Neutrophils % 55.3 % (37.0-80.0); Platelet Count 253 K/mm3 (142-424); White Blood Count 5.4 K/mm3 (4.8-10.8)
--- NOTE | 2023-07-19 07:11 | EXP.SURG.PN ---
Subjective Narrative: Patient states that she feels well with no complaints. She states that she has had some dark liquid bowel movements and this gave her some relief. Discussion with nursing staff states that when she was given contrast that she had complained of 10 out of 10 pain. She has been taking minimal ice chips. Exam Data for Last 24 hours Vital signs and Labs for Last 24 Hours: Temp Pulse Resp BP Pulse Ox O2 Del Method O2 Flow Rate 98.6 F 116 H 18 119/77 90 L Nasal Cannula 3 07/19/23 04:00 07/19/23 04:00 07/19/23 04:00 07/19/23 04:00 07/19/23 04:00 07/19/23 06:36 07/19/23 06:36 Laboratory Results - last 24 hr 07/18/23 05:29: Sodium 138, Potassium 3.4 L, Chloride 97 L, Carbon Dioxide 36 H, Anion Gap 8.4, BUN 38 H D, Creatinine 1.30 H D, Estimated Creat Clear 50, Estimated GFR 41 L, Est GFR ( Amer) 49 L D, Glucose 153 H, Calcium 9.5, Magnesium 2.2, Total Bilirubin 0.6, AST 27, ALT 15, Alkaline Phosphatase 78, Total Protein 6.2 L, Albumin 3.6, Globulin 2.6, Albumin/Globulin Ratio 1.4 07/19/23 05:31: WBC 5.4, RBC 4.30, Hgb 13.7, Hct 42.5, MCV 98.8, MCH 31.8 H, MCHC 32.2, RDW 14.0, Plt Count 253, MPV 7.9, Neut % (Auto) 55.3, Lymph % (Auto) 31.3, Mingo % (Auto) 12.4 H, Eos % (Auto) 0.3, Baso % (Auto) 0.7, Neut # (Auto) 3.0, Lymph # (Auto) 1.7, M[place] # (Auto) 0.7, Eos # (Auto) 0.0, Baso # (Auto) 0.0, Sodium 140, Potassium 3.3 L, Chloride 97 L, Carbon Dioxide 38 H, Anion Gap 8.3, BUN 46 H, Creatinine 1.20 H, Estimated Creat Clear 54, Estimated GFR 45 L, Est GFR ( Amer) 54 L, Glucose 121 H, Calcium 9.4, Magnesium 2.2, Total Bilirubin 0.7, AST 25, ALT 13, Alkaline Phosphatase 60, Total Protein 5.7 L, Albumin 3.2 L D, Globulin 2.5, Albumin/Globulin Ratio 1.3 I & O for Last 24 hours: Intake & Output 07/16/23 07/17/23 07/18/23 07/19/23 11:59 11:59 11:59 11:59 Intake Total 803 / 803 1255 / 1255 1900 / 1900 Output Total 800 / 800 1700 / 1700 1000 / 1000 Balance -445 / -445 900 / 900 Weight 166 lb 6.4 oz 166 lb 7.889 oz 166 lb 7.184 oz *Routine Abdominal Exam Abdominal: Present soft Comments: Abdomen is soft with slight distention. She has some mild tenderness without guarding or rebound in the right upper quadrant. Progress Note: A&P Assessment and plan (1) Bowel obstruction: Status: Acute Assessment and plan: X-rays this morning after administration of water-soluble contrast last night reveals persistent bowel obstruction . Likely will need surgical intervention. Interestingly at the patient states that she has had some bowel movements has had relief. I will go ahead and clamp her NG tube at this point and see how she tolerates this over a couple of hours and obtain a follow-up x-ray (2) Abdominal pain: Status: Acute (3) Nausea & vomiting: Status: Acute (4) Hypertension: Status: Acute (5) COPD (chronic obstructive pulmonary disease): Status: Chronic (6) Tobacco dependence syndrome: Status: Acute
--- NOTE | 2023-07-19 07:22 | P.PN_ITS ---
Subjective *Date: 07/19/23 *Time: 17:09 Interval history: Nausea after getting contrast last night. Having a few loose stools. Still having abdominal pain and discomfort. Stable on 3 L of oxygen (her baseline). no fevers overnight. Taken for surgery this morning. Seen again after surgery. Feeling little bit better. Abdominal pain postop. No nausea or vomiting. Requesting ice chips. Medical Exam Vital signs and Labs for Last 24 Hours: Vital Signs Temp Pulse Resp BP Pulse Ox O2 Del Method O2 Flow Rate 07/19/23 06:36 Nasal Cannula 3 07/19/23 05:00 Nasal Cannula 3 07/19/23 04:00 98.6 F 116 H 18 119/77 90 L Nasal Cannula 3 07/19/23 03:00 Nasal Cannula 3 07/19/23 01:00 Nasal Cannula 3 07/18/23 23:00 Nasal Cannula 3 07/18/23 20:41 Nasal Cannula 3 07/18/23 20:00 98.1 F 118 H 18 131/76 89 L Nasal Cannula 3 07/18/23 20:00 Nasal Cannula 3 07/18/23 18:39 Nasal Cannula 07/18/23 17:05 Room Air 07/18/23 15:50 98.5 F 92 H 20 138/94 H 91 L Nasal Cannula 3 07/18/23 14:55 Nasal Cannula 3 07/18/23 13:05 Nasal Cannula 3 07/18/23 11:00 Nasal Cannula 3 07/18/23 09:10 Nasal Cannula 3 07/18/23 07:45 Nasal Cannula 3 07/18/23 07:43 97.4 F L 108 H 22 113/74 90 L Room Air Intake and Output 07/18/23 07/18/23 07/19/23 15:59 23:59 07:59 Intake Total 1525 / 2422 0 / 2422 375 / 375 Output Total 600 / 1800 400 / 400 Balance 1525 / 622 -600 / 622 -25 / -25 Intake: Intake, Oral Amount 0 / 0 0 / 0 0 / 0 Intake, Total IV Amount 1525 / 2422 375 / 375 Lactated Ringers 1000ML 1,000 1525 / 2422 375 / 375 ml @ 75 mls/hr IV .[id number] [facility] Rx#:[id number] Output: Output, Gastric Drainage Amount 600 / 1800 400 / 400 Right Nare 600 / 1800 400 / 400 Other: Number of Bowel Movements 1 Weight 75.52 kg 75.5 kg Patient Weight 07/19/23 23:59 Weight 75.5 kg Laboratory Results - last 24 hr 07/18/23 05:29: Sodium 138, Potassium 3.4 L, Chloride 97 L, Carbon Dioxide 36 H, Anion Gap 8.4, BUN 38 H D, Creatinine 1.30 H D, Estimated Creat Clear 50, Estimated GFR 41 L, Est GFR ( Amer) 49 L D, Glucose 153 H, Calcium 9.5, Magnesium 2.2, Total Bilirubin 0.6, AST 27, ALT 15, Alkaline Phosphatase 78, Total Protein 6.2 L, Albumin 3.6, Globulin 2.6, Albumin/Globulin Ratio 1.4 07/19/23 05:31: WBC 5.4, RBC 4.30, Hgb 13.7, Hct 42.5, MCV 98.8, MCH 31.8 H, MCHC 32.2, RDW 14.0, Plt Count 253, MPV 7.9, Neut % (Auto) 55.3, Lymph % (Auto) 31.3, [place] % (Auto) 12.4 H, Eos % (Auto) 0.3, Baso % (Auto) 0.7, Neut # (Auto) 3.0, Lymph # (Auto) 1.7, [place] # (Auto) 0.7, Eos # (Auto) 0.0, Baso # (Auto) 0.0, Sodium 140, Potassium 3.3 L, Chloride 97 L, Carbon Dioxide 38 H, Anion Gap 8.3, BUN 46 H, Creatinine 1.20 H, Estimated Creat Clear 54, Estimated GFR 45 L, Est GFR ( Amer) 54 L, Glucose 121 H, Calcium 9.4, Magnesium 2.2, Total Bilirubin 0.7, AST 25, ALT 13, Alkaline Phosphatase 60, Total Protein 5.7 L, Albumin 3.2 L D, Globulin 2.5, Albumin/Globulin Ratio 1.3 I & O for Labs for Last 24 Hours: Intake & Output 07/16/23 07/17/23 07/18/23 07/19/23 23:59 23:59 23:59 23:59 Intake Total 1536 / 8 2047 / 2422 375 / 375 Output Total 0 / 0 1700 / 1700 1400 / 1800 400 / 400 Balance 0 / 0 -164 / 358 647 / 622 -25 / -25 Weight 75.478 kg 75.478 kg 75.52 kg 75.5 kg Constitutional: Present no acute distress, obese, chronically ill appearing and cooperative Head: Present atraumatic and normocephalic ENT: Present normal exam Comment:: NG in left nare Neck: Present normal inspection Respiratory: Present normal respiratory effort; Absent rhonchi, wheezes or crackles Cardiac: Present Reg Rate and Rhythm GI: Present soft, distention, tenderness (No improvement the past 24 hours) and diminished bowel sounds Extremities: Present normal inspection and full ROM Skin: Present intact; Absent erythema Neuro: Present Grossly Intact, alert, awake, oriented x 3 and moves all extremities Assessment and Plan *Assessment and plan (1) Bowel obstruction: Status: Acute Qualifiers: Intestinal obstruction extent: unspecified extent Intestinal obstruction type: other intestinal obstruction Qualified Code(s): K56.699 - Other intestinal obstruction unspecified as to partial versus complete obstruction Category: Medical Code(s): K56.609 - Unspecified intestinal obstruction, unspecified as to partial versus complete obstruction (2) Abdominal pain: Status: Acute Qualifiers: Abdominal location: unspecified location Qualified Code(s): R10.9 - Unspecified abdominal pain Category: Medical Code(s): R10.9 - Unspecified abdominal pain (3) Nausea & vomiting: Status: Acute Qualifiers: Vomiting type: unspecified Qualified Code(s): R11.2 - Nausea with vomiting, unspecified Category: Medical Code(s): R11.2 - Nausea with vomiting, unspecified (4) Hypertension: Status: Acute Qualifiers: Hypertension type: unspecified Qualified Code(s): I10 - Essential (primary) hypertension Category: Medical Code(s): I10 - Essential (primary) hypertension (5) COPD (chronic obstructive pulmonary disease): Status: Chronic Qualifiers: COPD type: emphysema Emphysema type: unspecified Qualified Code(s): J43.9 - Emphysema, unspecified Category: Medical Code(s): J44.9 - Chronic obstructive pulmonary disease, unspecified (6) Tobacco dependence syndrome: Status: Acute Category: Medical Code(s): F17.200 - Nicotine dependence, unspecified, uncomplicated Plan 68-year-old female with PMHx of hypertension, COPD, CAD, and prior bowel obstruction requiring surgical resection presenting with concern for abdominal pain. She has had multiple previous abdominal surgeries. She has apparently previously had colon resection for benign disease. She had developed a ventral hernia and had mesh placed. Also she has previously undergone laparotomy with lysis of adhesions for bowel obstruction. Findings of acute bowel obstruction. Discussed with ED and surgeon certified addiction counselor. Due to worsening discomfort with contrast last night, concern for obstruction. Going to the OR today for definitive management. Continues to require inpatient management. Problems addressed as follows: -Abdominal pain with nausea and vomiting, secondary to small bowel obstruction: Surgery consulted, appreciate their recommendations. Discussed case today. Taken to the OR today. Adhesions found and taken down. No bowel resection performed. Will clinically monitor. Continue NG to low wall suction. Continue n.p.o. Zofran for nausea as needed Morphine IV 2 mg as needed every 4 hours, monitor for toxicity. Continue maintenance IV fluids 75 cc/h of lactated Ringer's leukocytosis stable this morning at 5.4 Repeat CBC, CMP, magnesium ordered for the morning. Hypomagnesemia Hypokalemia - magnesium 2.2 this morning. No repletion this morning - Potassium 3.3. Repeat labs in the morning, will consider replacement tomorrow if potassium even lower History of hypertension, COPD: Condition reviewed and stable. Continue management Maximize O2 saturation. Currently on 3 L nasal cannula. Goal sats greater 90%. DuoNebs every 6 hours as needed nebulized as needed, continue daily maintenance inhaler with Tiotropium/olodaterol, 2 puffs daily Holding hypertensive medication given patient is n.p.o. and normotensive. -Tobacco dependence: On nicotine patch SCD for DVT prophylaxis. On Protonix for GI protection Full code NPO
[2023-07-19] MEDS: LACTATED RINGERS 1000ML 1,000 ML 75 ML IV ×2 (08:17→15:16)
[2023-07-19] MEDS: ONDANSETRON 4MG/2ML VIAL 4 MG IV ×2 (08:17→20:56)
[2023-07-19] MEDS: GABAPENTIN 300MG CAPSULE 300 MG PO ×2 (08:17→20:15)
--- NOTE | 2023-07-19 10:00 | XR_ITS ---
FINAL REPORT CLINICAL HISTORY: SMALL BOWEL OBSTRUCTION COMPARISON: 07/19/2023 FINDINGS: A PA view of the chest was obtained. The mediastinum is unremarkable. The lungs are clear. There is no free air beneath the diaphragm. NG tube is seen in the stomach. The previously noted air-filled distended loops of small bowel are somewhat improved. There are some persistent dilated loops of bowel measuring up to 5.5 cm. There is contrast in the colon. IMPRESSION: Partial interval decompression of the distal small bowel. Reviewed, Interpreted and Dictated by Ketan Yi MD Transcribed by Lauren Benson Authenticated and [facility]
--- NOTE | 2023-07-19 11:08 | PC.NURSE ---
iv leaking and removed.
--- NOTE | 2023-07-19 12:06 | DIET.NUTRFU ---
consulted provider about NPO x3 days, now undergoing sx, he plans to start dextrose post sx. She may benefit from supplements d/t duration of NPO
--- NOTE | 2023-07-19 13:42 | P.OP_ITS ---
Date of procedure: 07/19/23 Pre-op Diagnosis:: Small bowel obstruction Post-op Diagnosis:: Same Procedure performed:: Laparoscopy with laparoscopic lysis of adhesions Surgeon:: Nemesio Trivedi MD LOOK OUT TOWER FIRE WATCHER:: Gael Hancock Anesthesia: GETKevin Estimated blood loss (mL): 10 Clinical Note:: . Patient is a 68-year-old female from [facility]. She has had multiple previous abdominal surgeries. She has apparently previously had colon resection for benign disease. She has had multiple laparotomies for bowel obstructions at [facility]. She had developed a ventral hernia and had mesh placed at [facility]. She had presented to this facility in 2017 with a bowel obstruction secondary to hernia recurrence with strangulated small bowel through the mesh. She required laparotomy with small bowel resection and primary closure done by Dr. Santana on 11/24/16. She was in her usual state of health until 07/17/23 at which time she had acute onset of abdominal pain with associated nausea and vomiting. This is mostly in the upper abdomen. She did have a bowel movement prior to presentation. She has had emesis. The symptoms are similar to symptoms she has had with previous obstruction. She underwent CT scan of the abdomen pelvis which revealed dilated small bowel loops with a transition point in the pelvis consistent with small bowel obstruction likely related to adhesions. She was admitted for inpatient management. Surgical consultation was obtained and she was seen in the explosive operator fuse of 07/17/2023. Initial attempt was made at nonoperative management. She had nasogastric tube placed. The following morning she did have some nausea and had about 800 cc out of her nasogastric tube. Acute abdominal series revealed some persistent loops of small bowel distention in the right upper quadrant. She did begin to pass a small amount of gas. Given the equivocal nature of her findings objectively as well as subjective symptoms in the evening of 07/17/2022 patient was given Gastrografin via the nasogastric tube with plan for follow-up films the following morning. Apparently the patient developed significant pain with administration of oral contrast. However, interestingly, clinically she states that she felt rather well with some passage of flatus and actually liquid bowel movement. However her x-rays at this time revealed findings of persistent small bowel obstruction. Given her equivocal findings and history plan was made for attempt at clamping the nasogastric tube and follow-up films several hours later. She did have some mild increasing pain with clamping the nasogastric tube. Interval follow-up films revealed partial interval decompression of distal small bowel. There was noted to be interestingly contrast in the colon. It was felt that given the patient's symptomatology, o bjective findings, and clinical findings, that she likely had an ongoing high- grade partial obstruction. Plan was made for operative intervention. . Operative findings:: Patient had distended small bowel. Distal small bowel near the right lower quadrant there were findings of edema and induration (slight) with decompression distally consistent with transient partial obstruction. She had evidence of ventral abdominal reconstruction potentially with repair of complex hernia with separation of abdominal components. Operative note:: . Consent was obtained and patient was taken to the operating room. She was given preoperative intravenous antibiotics. In the operating room she was placed in a supine position. General anesthesia was induced via endotracheal tube. Garcia catheter was placed. Abdomen was prepped and draped in the standard surgical fashion. Attention was first turned to diagnostic laparoscopy. Left subcostal incision was made. 5 mm optical trocar was inserted under laparoscopic visualization carefully. Peritoneal cavity was entered. CO2 pneumoperitoneum was achieved. There were noted to be some omental adhesions to the anterior abdomen where there was a hernia reconstruction. There was a tiny recurrent hernia towards the superior portion of the mesh. There was no evidence of any small bowel adherent anteriorly. Ultimately the 5 mm trocar was inserted in the left lower abdomen and additional 5 mm trocar was inserted in the epigastrium. Omental adhesions were taken down from the anterior abdomen using [place] ultrasonic harmonic jaxson. Once this was complete the small bowel was ran distally. It was distended. In the right lower quadrant there was evidence of some edema and erythema with congestion of the small bowel. There was evidence of a linear blanching side possibly consistent with transient pinching of the bowel or resolved adhesive band. Small bowel was viable. Distal to this area of blanching the small bowel appeared decompressed. There was no notable mass. Bowel appeared viable. Prolonged laparoscopic evaluation of this was performed. Throughout the small bowel there was no evidence of any appreciable peristalsis however. It was felt that this appeared to be likely the site of obstruction but as stated above it appeared viable. Converting to an open laparotomy likely would not result in any additional benefit and likely create harm. Remaining laparoscopic surveillance was unremarkable. There was good hemostasis. Trocars were then removed as CO2 pneumoperitoneum was evacuated. Trocar sites were closed with 4-0 Monocryl subcuticular fashion. Dermabond and dressings were applied. If the patient develops recurrent obstruction or she has lack of improvement may require laparotomy via low midline incision as the mesh appears to be mostly in the raudel and supraumbilical location. . Condition: stable Disposition: PACU Complications:: None immediately apparent
--- NOTE | 2023-07-19 13:52 | P.PNANES_ITS ---
[facility] [place] Anesthesia Record Part I Anesthesia Record I Intake, IV Amount: 1,700 Hydration: Adequate Estimated blood loss (mL): 5 Urine output (mL): 200 Blood Products used (#): none Blood Pressure: 129/83 SaO2: 90 Pulse Rate: 97 Airway Patency: Patent Respiratory Rate: 16 Temperature: 99 F Patient is:: Drowsy and Stable Stable to PACU at:: 13:45
--- NOTE | 2023-07-19 13:52 | EXP.ANES.CKL ---
[facility] Disclaimer: The information contained in this section may have been updated after the patient was seen, as this information can be updated by other users. Medical History (Updated 07/17/23 @ 04:42 by Isacc Ogden APRN) Allergic rhinitis Tobacco abuse counseling Screening for lung cancer Nocturnal hypoxemia Dyspnea on exertion Pulmonary emphysema Allergic rhinitis, unspecified Smoking greater than 30 pack years Pulmonary nodule, left Tobacco abuse COPD (chronic obstructive pulmonary disease) Edema Surgical History (Updated 07/16/23 @ 22:17 by Sirena Guadalupe RN) H/O right heart catheterization Previous back surgery History of colonoscopy History of hysterectomy History of cholecystectomy H/O oral surgery History of colon surgery History of excision of lesion Family History Other Heart attack Social History Smoking Status: Current every day smoker tobacco type: cigarettes packs per day: 1 second hand exposure: No alcohol intake: never counseling provided: provider counseling substance use type: denies use current occupational status: retired Travel in the last 8 weeks: None household members: none housing: house current occupational exposures/hazards: No caffeine: No H Anesthesia Checklist Patient Identification Patient Identification: Arm Band Structural Data Admitted From: Inpatient Planned Operative Procedure/s: Diagnostic Laparoscopy Consent for Planned Operative Procedure(s) Verified: Yes Verified Documents: Surgical Consent and History and Physical NPO Status Verified Time NPO: 00:00 Additional verifications Anesthesia Reactions: No Hx Blood Transfusions: No Blood Transfusion Reaction: Yes Airway Assessment Mallampati Score:: Class II C-Spine Mobility Assessed: Yes TMJ Mobility Assessed: Yes Dentition: Poor Dentition Neurological Assessment Level of Consciousness: Awake, Alert and Appropriate Anesthesia Plan Anesthesia Risk discussed: Yes Anesthesia Plan: Verified ASA Class: III Anesthesia Type: General
--- NOTE | 2023-07-19 13:56 | XR_ITS ---
FINAL REPORT CLINICAL HISTORY: ng placement- post op COMPARISON: 07/16/2023 FINDINGS: The heart size is normal. The mediastinum is normal. There is no focal infiltrate or edema. There are no pleural effusions. There is no pneumothorax. NG tube is present with the tip in the stomach. Sidehole is above the GE junction. Multiple loops of small bowel are mildly distended. There is no osseous abnormality. IMPRESSION: NG tube tip in the stomach, sidehole above the GE junction. Multiple mildly distended loops of small bowel. Reviewed, Interpreted and Dictated by Ketan Yi MD Transcribed by Anali Griffin Authenticated and . [facility]
[2023-07-19 14:32] LABS: POC Glucose,Bedside 113 (70-110)
--- NOTE | 2023-07-19 14:49 | PC.NURSE ---
Pt. back to the floor on nc sats in the low 90's, having to wake patient to take deep breaths, f/c in place, new ng placed and marked at level 53.
[2023-07-19] MEDS: MORPHINE 2MG/ML SYRINGE 2 MG IV (20:56)
[2023-07-20] VITALS (8 sets, daily range): BP systolic 126–152; BP diastolic 62–90; PULSE 105–116; RESP 16–22; TEMP 36.6–37; O2SAT 90–96; BMI 29.5
[2023-07-20] MEDS: LACTATED RINGERS 1000ML 1,000 ML 75 ML IV (04:26)
--- NOTE | 2023-07-20 05:33 | PC.NURSE ---
Pt is alert and oriented x4, and currently tolerating 4L of O2. Pt has rested well this shift and has c/o pain this shift and has been treated per MAR, pt denies pain at this time. no acute changes noted at this time. Pt NG tube remains in place and is connected to low wall suction.
[2023-07-20 06:24] LABS: Basophils % 0.4 % (0.1-2.0); Eosinophils % 0.6 % (0.1-12.0); Hematocrit 41.9 % (37.0-47.0); Hemoglobin 13.4 g/dL (12.2-16.2); Lymphocytes # 1.7 K/mm3 (0.7-4.5); Lymphocytes % 26.2 % (10-50); Mean Corpuscular HGB Conc 32.1 g/dL (31.8-35.4); Mean Corpuscular Volume 99.6 fl (81-99); Mean Platelet Volume 8.2 fl (7.4-10.4); Monocytes # 0.7 K/mm3 (0.1-1.0); Monocytes % 9.8 % (1.7-9.3); Neutrophils # 4.2 K/mm3 (1.8-7.8); Platelet Count 270 K/mm3 (142-424); Red Blood Count 4.21 M/mm3 (4.20-5.40); White Blood Count 6.6 K/mm3 (4.8-10.8)
[2023-07-20 06:40] LABS: Alanine Aminotransferase 11 U/L (12-78); Albumin Level 3.2 g/dl (3.5-5.0); Albumin/Globulin Ratio 1.2 (1.1-1.8); Alkaline Phosphatase 57 U/L (38-126); Anion Gap 8.3 mEq/L (5-15); Aspartate Amino Transferase 31 U/L (14-36); Bilirubin,Total 0.9 mg/dl (0.2-1.3); Blood Urea Nitrogen 34 mg/dl (7-17); Calcium 9.4 mg/dl (8.4-10.2); Carbon Dioxide 34 mmol/L (22.0-30.0); Chloride 99 mmol/L (98-107); Creatinine Clearance Estimated 65 mL/min (50-200); Estimated Glomerular Filt Rate 55 ml/min (>60); GFR (African American) 67 ML/MIN (>60); Globulin 2.6 g/dL (1.3-3.2); Glucose 98 mg/dl (74-100); Magnesium 2.2 mg/dl (1.6-2.3); Potassium 3.3 mmoL/L (3.5-5.1); Sodium 138 mmol/L (136-145); Total Protein,Serum 5.8 g/dl (6.3-8.2)
--- NOTE | 2023-07-20 06:59 | EXP.SURG.PN ---
Subjective Narrative: Patient states that she feels quite well. She states that she is passing gas and having bowel movements. Exam Data for Last 24 hours Vital signs and Labs for Last 24 Hours: Temp Pulse Resp BP Pulse Ox O2 Del Method O2 Flow Rate 98.6 F 108 H 20 127/82 91 L Nasal Cannula 4 07/20/23 04:00 07/20/23 04:00 07/20/23 04:00 07/20/23 04:00 07/20/23 04:00 07/20/23 04:47 07/20/23 04:47 Laboratory Results - last 24 hr 07/19/23 05:31: WBC 5.4, RBC 4.30, Hgb 13.7, Hct 42.5, MCV 98.8, MCH 31.8 H, MCHC 32.2, RDW 14.0, Plt Count 253, MPV 7.9, Neut % (Auto) 55.3, Lymph % (Auto) 31.3, [place] % (Auto) 12.4 H, Eos % (Auto) 0.3, Baso % (Auto) 0.7, Neut # (Auto) 3.0, Lymph # (Auto) 1.7, [place] # (Auto) 0.7, Eos # (Auto) 0.0, Baso # (Auto) 0.0 07/19/23 14:25: POC Glucose 113 H 07/20/23 05:24: WBC 6.6, RBC 4.21, Hgb 13.4, Hct 41.9, MCV 99.6 H, MCH 32.0 H, MCHC 32.1, RDW 14.0, Plt Count 270, MPV 8.2, Neut % (Auto) 63.0, Lymph % (Auto) 26.2, [place] % (Auto) 9.8 H, Eos % (Auto) 0.6, Baso % (Auto) 0.4, Neut # (Auto) 4.2, Lymph # (Auto) 1.7, [place] # (Auto) 0.7, Eos # (Auto) 0.0, Baso # (Auto) 0.0, Sodium 138, Potassium 3.3 L, Chloride 99, Carbon Dioxide 34 H, Anion Gap 8.3, BUN 34 H D, Creatinine 1.00, Estimated Creat Clear 65, Estimated GFR 55 L, Est GFR ( Amer) 67 D, Glucose 98, Calcium 9.4, Magnesium 2.2, Total Bilirubin 0.9, AST 31, ALT 11 L, Alkaline Phosphatase 57, Total Protein 5.8 L, Albumin 3.2 L, Globulin 2.6, Albumin/Globulin Ratio 1.2 I & O for Last 24 hours: Intake & Output 07/17/23 07/18/23 07/19/23 07/20/23 11:59 11:59 11:59 11:59 Intake Total 803 / 803 1255 / 1255 1900 / 1900 2450 / 2450 Output Total 800 / 800 1700 / 1700 1000 / 1000 775 / 775 Balance 3 / 3 -445 / -445 900 / 900 1675 / 1675 Weight 166 lb 6.4 oz 166 lb 7.889 oz 166 lb 7.184 oz 166 lb 7.184 oz *Routine Abdominal Exam Abdominal: Present soft Progress Note: A&P Assessment and plan (1) Bowel obstruction: Status: Acute Assessment and plan: I will place her in G2 gravity drain today. (2) Abdominal pain: Status: Acute (3) Nausea & vomiting: Status: Acute (4) Hypertension: Status: Acute (5) COPD (chronic obstructive pulmonary disease): Status: Chronic (6) Tobacco dependence syndrome: Status: Acute
--- NOTE | 2023-07-20 07:20 | P.PN_ITS ---
Subjective *Date: 07/20/23 *Time: 13:07 Interval history: Patient states she feeling better today. No nausea or vomiting overnight. Has had several soft/loose bowel movements overnight. Afebrile. Increased O2 of 4 L. Will stop maintenance fluids and diurese x 1 today. Patient interested in advancing diet if feeling better. Discussed that I would bring this up with surgery about possibly advancing her diet later if she does well Medical Exam Vital signs and Labs for Last 24 Hours: Vital Signs Temp Pulse Pulse Resp BP BP Pulse Ox 07/20/23 07:18 98.1 F 107 H 18 126/69 90 L 07/20/23 07:00 07/20/23 04:47 07/20/23 04:00 98.6 F 108 H 20 127/82 91 L 07/20/23 03:00 07/20/23 00:54 07/20/23 00:00 98.2 F 116 H 22 127/63 90 L 07/19/23 23:00 07/19/23 22:08 98.1 F 117 H 18 129/76 93 L 07/19/23 21:00 97.9 F 116 H 16 135/75 92 L 07/19/23 21:00 07/19/23 20:00 98.0 F 116 H 18 130/74 91 L 07/19/23 20:00 116 H 07/19/23 17:53 07/19/23 17:00 98.1 F 110 H 16 133/77 94 L 07/19/23 16:30 98.1 F 117 H 16 118/50 L 93 L 07/19/23 16:27 07/19/23 16:00 98.1 F 114 H 16 136/67 93 L 07/19/23 15:30 98.1 F 112 H 16 140/72 93 L 07/19/23 15:15 98.1 F 112 H 16 132/64 92 L 07/19/23 15:00 98.1 F 110 H 16 140/75 110 H 07/19/23 14:45 98.4 F 110 H 16 136/73 93 L 07/19/23 14:30 98.4 F 113 H 16 135/69 90 L 07/19/23 14:16 105 H 18 152/90 H 92 L 07/19/23 14:05 86 18 126/84 96 07/19/23 13:55 96 H 16 126/84 92 L 07/19/23 13:54 99 F 97 H 16 129/83 07/19/23 13:45 99 F 98 H 16 129/83 89 L 07/19/23 09:48 07/19/23 08:18 07/19/23 08:00 07/19/23 07:33 98.5 F 116 H 18 115/68 90 L O2 Del Method O2 Flow Rate 07/20/23 07:18 Nasal Cannula 4 07/20/23 07:00 Nasal Cannula 4 07/20/23 04:47 Nasal Cannula 4 07/20/23 04:00 Nasal Cannula 4 07/20/23 03:00 Nasal Cannula 4 07/20/23 00:54 Nasal Cannula 4 07/20/23 00:00 Nasal Cannula 4 07/19/23 23:00 Room Air 07/19/23 22:08 Nasal Cannula 4 07/19/23 21:00 Nasal Cannula 4 07/19/23 21:00 Nasal Cannula 4 07/19/23 20:00 Nasal Cannula 4 07/19/23 20:00 Nasal Cannula 4 07/19/23 17:53 Nasal Cannula 4 07/19/23 17:00 Nasal Cannula 4 07/19/23 16:30 Nasal Cannula 4 07/19/23 16:27 Nasal Cannula 4 07/19/23 16:00 Nasal Cannula 4 07/19/23 15:30 Nasal Cannula 4 07/19/23 15:15 Nasal Cannula 4 07/19/23 15:00 Nasal Cannula 4 07/19/23 14:45 Nasal Cannula 4 07/19/23 14:30 Nasal Cannula 4 07/19/23 14:16 Nasal Cannula 4 07/19/23 14:05 Nasal Cannula 4 07/19/23 13:55 Nasal Cannula 4 07/19/23 13:54 07/19/23 13:45 Nasal Cannula 4 07/19/23 09:48 Nasal Cannula 3 07/19/23 08:18 Nasal Cannula 3 07/19/23 08:00 Nasal Cannula 3 07/19/23 07:33 Nasal Cannula 3 Intake and Output 07/19/23 07/19/23 07/20/23 15:59 23:59 07:59 Intake Total 2075 / 2825 375 / 375 Output Total 300 / 800 100 / 800 375 / 375 Balance 1774 -2024 0 / 0 Intake: Intake, Oral Amount 0 / 0 Intake, Total IV Amount 2074 / 2824 375 / 375 Lactated Ringers 1000ML 1,000 375 / 1125 375 / 375 ml @ 75 mls/hr IV .[id number] [facility] Rx#:[id number] Output: Output, Urine Amount 0 / 0 375 / 375 Output, Urine Amount (Catheter) 300 / 300 Garcia 300 / 300 Output, Gastric Drainage Amount 100 / 500 Right Nare 100 / 500 Other: Number of Voids 0 Number of Unmeasured Voids 0 Number of Bowel Movements 1 Weight 75.5 kg Patient Weight 07/20/23 23:59 Weight 75.5 kg Laboratory Results - last 24 hr 07/19/23 14:25: POC Glucose 113 H 07/20/23 05:24: WBC 6.6, RBC 4.21, Hgb 13.4, Hct 41.9, MCV 99.6 H, MCH 32.0 H, MCHC 32.1, RDW 14.0, Plt Count 270, MPV 8.2, Neut % (Auto) 63.0, Lymph % (Auto) 26.2, [place] % (Auto) 9.8 H, Eos % (Auto) 0.6, Baso % (Auto) 0.4, Neut # (Auto) 4.2, Lymph # (Auto) 1.7, [place] # (Auto) 0.7, Eos # (Auto) 0.0, Baso # (Auto) 0.0, Sodium 138, Potassium 3.3 L, Chloride 99, Carbon Dioxide 34 H, Anion Gap 8.3, BUN 34 H D, Creatinine 1.00, Estimated Creat Clear 65, Estimated GFR 55 L, Est GFR ( Amer) 67 D, Glucose 98, Calcium 9.4, Magnesium 2.2, Total Bilirubin 0.9, AST 31, ALT 11 L, Alkaline Phosphatase 57, Total Protein 5.8 L, Albumin 3.2 L, Globulin 2.6, Albumin/Globulin Ratio 1.2 I & O for Labs for Last 24 Hours: Intake & Output 07/17/23 07/18/23 07/19/23 07/20/23 23:59 23:59 23:59 23:59 Intake Total 1536 / 8 7 / 2422 2449 / 2825 375 / 375 Output Total 1700 / 1700 1400 / 1800 800 / 800 375 / 375 Balance -164 / 358 647 / 622 1649 / 2024 0 / 0 Weight 75.478 kg 75.52 kg 75.5 kg 75.5 kg Constitutional: Present no acute distress, obese, chronically ill appearing and cooperative Head: Present atraumatic and normocephalic ENT: Present normal exam Comment:: NG in left nare Neck: Present normal inspection Respiratory: Present normal respiratory effort; Absent rhonchi, wheezes or crackles Cardiac: Present Reg Rate and Rhythm GI: Present soft, tenderness (improved) and normal bowel sounds; Absent distent ion Extremities: Present normal inspection and full ROM Skin: Present intact; Absent erythema Neuro: Present Grossly Intact, alert, awake, oriented x 3 and moves all extremities Assessment and Plan *Assessment and plan (1) Bowel obstruction: Status: Acute Qualifiers: Intestinal obstruction extent: unspecified extent Intestinal obst ruction type: other intestinal obstruction Qualified Code(s): K56.699 - Other intestinal obstruction unspecified as to partial versus complete obstruction Category: Medical Code(s): K56.609 - Unspecified intestinal obstruction, unspecified as to partial versus complete obstruction (2) Abdominal pain: Status: Acute Qualifiers: Abdominal location: unspecified location Qualified Code(s): R10.9 - Unspecified abdominal pain Category: Medical Code(s): R10.9 - Unspecified abdominal pain (3) Nausea & vomiting: Status: Acute Qualifiers: Vomiting type: unspecified Qualified Code(s): R11.2 - Nausea with vomiting, unspecified Category: Medical Code(s): R11.2 - Nausea with vomiting, unspecified (4) Hypertension: Status: Acute Qualifiers: Hypertension type: unspecified Qualified Code(s): I10 - Essential (primary) hypertension Category: Medical Code(s): I10 - Essential (primary) hypertension (5) COPD (chronic obstructive pulmonary disease): Status: Chronic Qualifiers: COPD type: emphysema Emphysema type: unspecified Qualified Code(s): J43.9 - Emphysema, unspecified Category: Medical Code(s): J44.9 - Chronic obstructive pulmonary disease, unspecified (6) Tobacco dependence syndrome: Status: Acute Category: Medical Code(s): F17.200 - Nicotine dependence, unspecified, uncomplicated Plan 68-year-old female with PMHx of hypertension, COPD, CAD, and prior bowel obstruction requiring surgical resection presenting with concern for abdominal pain. She has had multiple previous abdominal surgeries. She has apparently previously had colon resection for benign disease. She had developed a ventral hernia and had mesh placed. Also she has previously undergone laparotomy with lysis of adhesions for bowel obstruction. Findings of acute bowel obstruction. Discussed with ED and surgeon research consultant. Showing improvement since takedown of adhesions yesterday. Having some loose stools. Continues to require inpatient management. Plan to slowly advance diet when okayed by surgery. Problems addressed as follows: -Abdominal pain with nausea and vomiting, secondary to small bowel obstruction: Surgery consulted, appreciate their recommendations. Taken to the OR on 07/18. Adhesions found to taken down. No bowel resection performed. Showing improvement in bowel function. NG still in place. Will consider resuming clear liquids this afternoon versus tomorrow. Zofran for nausea as needed Morphine IV 2 mg as needed every 4 hours, monitor for toxicity. Discontinue IV fluids leukocytosis stable this morning at 6.6 Repeat CBC, CMP, magnesium ordered for the morning. Hypomagnesemia Hypokalemia - magnesium 2.2 this morning. No repletion this morning - Potassium 3.3. Repeat labs in the morning, will consider replacement tomorrow if potassium even lower History of hypertension, COPD: Condition reviewed and stable. Continue management Maximize O2 saturation. Currently on 3 L nasal cannula. Goal sats greater 90%. DuoNebs every 6 hours as needed nebulized as needed, continue daily maintenance inhaler with Tiotropium/olodaterol, 2 puffs daily Holding hypertensive medication given patient is n.p.o. and normotensive. -Tobacco dependence: On nicotine patch SCD for DVT prophylaxis. On Protonix for GI protection Full code NPO
[2023-07-20] MEDS: FUROSEMIDE 40MG/4ML VIAL 40 MG IV (08:15)
[2023-07-20] MEDS: GABAPENTIN 300MG CAPSULE 300 MG PO ×3 (09:26→20:04)
--- NOTE | 2023-07-20 13:40 | EXP.ANES.II ---
[facility] Anesthesia Record Part II Anesthesia Record Part II Discharge Time: 14:16 Destination: [facility] (OP Surgery) PACU nurse assessment reviewed?: Yes Patient Condition:: Good Anesthesia Complications:: None Swallowing reflex intact?: Yes Airway Patency: Patent Cyanosis?: No Blood Pressure: 152/90 SaO2: 92 Respiratory Rate: 18 Pulse Rate: 105 Temperature: 98.4 F Mental Status: Alert & Oriented Pain level:: 0 Nausea and/or vomitting:: None Intake, IV Amount: 0 Hydration: Adequate
--- NOTE | 2023-07-20 14:32 | DIET.NUTRFU ---
Patient continues NPO, BM noted and NG to drain. IVF stopped with diuretic tx today. Anticipate clear liquids to start later today
--- NOTE | 2023-07-20 18:42 | PC.NURSE ---
patient remains alert and oriented x4, VSS, patient has had several bowel movements during my shift and passing gas. No complaints of stomach discomfort or n/v. No complaints of pain. NG tube removed at 1815 per physician order. Per physician order, patient is allowed ice chips but NPO otherwise. Pt remains on 4L NC. bed in lowest position, call light in reach.
[2023-07-21] VITALS (7 sets, daily range): BP systolic 120–135; BP diastolic 72–87; PULSE 91–113; RESP 16–20; TEMP 36.1–36.7; O2SAT 83–95; BMI 30.4
--- NOTE | 2023-07-21 05:11 | PC.NURSE ---
pt has had a good night and has not c/o n/v or pain throughout shift. abdomen has been soft and nontender throughout shift. pt has been resting in bed throughout shift. pt remains on 4L o2 via nc. abdominal dressings are clean dry and intact. pt has had no complaints throughout shift. call beatty within reach.
[2023-07-21 07:44] LABS: Alanine Aminotransferase 11 U/L (12-78); Albumin Level 3.1 g/dl (3.5-5.0); Albumin/Globulin Ratio 1.2 (1.1-1.8); Alkaline Phosphatase 68 U/L (38-126); Anion Gap 10.2 mEq/L (5-15); Aspartate Amino Transferase 32 U/L (14-36); Bilirubin,Total 1.1 mg/dl (0.2-1.3); Blood Urea Nitrogen 29 mg/dl (7-17); Calcium 9.3 mg/dl (8.4-10.2); Carbon Dioxide 32 mmol/L (22.0-30.0); Chloride 96 mmol/L (98-107); Creatinine Clearance Estimated 67 mL/min (50-200); Estimated Glomerular Filt Rate 72 ml/min (>60); GFR (African American) 87 ML/MIN (>60); Globulin 2.6 g/dL (1.3-3.2); Glucose 89 mg/dl (74-100); Magnesium 2.2 mg/dl (1.6-2.3); Potassium 3.2 mmoL/L (3.5-5.1); Sodium 135 mmol/L (136-145); Total Protein,Serum 5.7 g/dl (6.3-8.2)
[2023-07-21 07:53] LABS: Basophils # 0.1 K/mm3 (0-0.2); Basophils % 0.8 % (0.1-2.0); Eosinophils # 0.1 K/mm3 (0.0-0.4); Eosinophils % 0.6 % (0.1-12.0); Hematocrit 42.2 % (37.0-47.0); Hemoglobin 13.4 g/dL (12.2-16.2); Lymphocytes # 2.7 K/mm3 (0.7-4.5); Lymphocytes % 26.5 % (10-50); Mean Corpuscular HGB Conc 31.8 g/dL (31.8-35.4); Mean Corpuscular Hemoglobin 31.2 pg (27.0-31.2); Mean Corpuscular Volume 98.2 fl (81-99); Mean Platelet Volume 7.4 fl (7.4-10.4); Monocytes # 0.7 K/mm3 (0.1-1.0); Monocytes % 6.7 % (1.7-9.3); Neutrophils # 6.7 K/mm3 (1.8-7.8); Neutrophils % 65.5 % (37.0-80.0); Platelet Count 302 K/mm3 (142-424); Red Blood Count 4.29 M/mm3 (4.20-5.40); Red Cell Distribution Width 13.8 % (11.5-17.5); White Blood Count 10.2 K/mm3 (4.8-10.8)
[2023-07-21] MEDS: GABAPENTIN 300MG CAPSULE 300 MG PO ×3 (08:29→21:14)
--- NOTE | 2023-07-21 08:40 | P.PN_ITS ---
Subjective Narrative: Patient has done well overnight with her nasogastric tube out. She states that she feels well with no complaints. Having bowel movements. Exam Data for Last 24 hours Vital signs and Labs for Last 24 Hours: Temp Pulse Resp BP Pulse Ox O2 Del Method O2 Flow Rate 97.8 F 104 H 20 132/75 95 Nasal Cannula 2 07/21/23 07:55 07/21/23 07:55 07/21/23 07:55 07/21/23 07:55 07/21/23 07:55 07/21/23 08:00 07/21/23 07:55 Laboratory Results - last 24 hr 07/21/23 06:58: WBC 10.2 D, RBC 4.29, Hgb 13.4, Hct 42.2, MCV 98.2, MCH 31.2, MCHC 31.8, RDW 13.8, Plt Count 302, MPV 7.4, Neut % (Auto) 65.5, Lymph % (Auto) 26.5, [place] % (Auto) 6.7, Eos % (Auto) 0.6, Baso % (Auto) 0.8, Neut # (Auto) 6.7, Lymph # (Auto) 2.7, [place] # (Auto) 0.7, Eos # (Auto) 0.1, Baso # (Auto) 0.1, Sodium 135 L, Potassium 3.2 L, Chloride 96 L, Carbon Dioxide 32 H, Anion Gap 10.2, BUN 29 H, Creatinine 0.80, Estimated Creat Clear 67, Estimated GFR 72, Est GFR ( Amer) 87 D, Glucose 89, Calcium 9.3, Magnesium 2.2, Total Bilirubin 1.1, AST 32, ALT 11 L, Alkaline Phosphatase 68, Total Protein 5.7 L, Albumin 3.1 L, Globulin 2.6, Albumin/Globulin Ratio 1.2 I & O for Last 24 hours: Intake & Output 07/18/23 07/19/23 07/20/23 07/21/23 11:59 11:59 11:59 11:59 Intake Total 1255 / 1255 1900 / 1900 2450 / 2450 0 / 0 Output Total 1700 / 1700 1000 / 1000 775 / 775 1 / 1 Balance -445 / -445 900 / 900 1675 / 1675 -1 / -1 Weight 166 lb 7.889 oz 166 lb 7.184 oz 166 lb 7.184 oz 171 lb 14.4 oz *Routine Abdominal Exam Abdominal: Present soft; Absent tenderness Progress Note: A&P Assessment and plan (1) Bowel obstruction: Status: Acute Assessment and plan: I will go ahead and start a clear liquid diet. (2) Abdominal pain: Status: Acute (3) Nausea & vomiting: Status: Acute (4) Hypertension: Status: Acute (5) COPD (chronic obstructive pulmonary disease): Status: Chronic (6) Tobacco dependence syndrome: Status: Acute
--- NOTE | 2023-07-21 14:16 | P.PN_ITS ---
Subjective *Date: 07/21/23 *Time: 14:45 Interval history: patient was seen and evaluated at the bedside. No reported acute events overnight, denies chest pain, shortness of breath, nausea, vomiting, abdominal pain. she is passing gas Exam Data for Last 24 hours Vital signs and Labs for Last 24 Hours: Temp Pulse Resp BP Pulse Ox O2 Del Method O2 Flow Rate 97.8 F 104 H 20 132/75 95 Nasal Cannula 2.5 07/21/23 07:55 07/21/23 07:55 07/21/23 07:55 07/21/23 07:55 07/21/23 07:55 07/21/23 13:00 07/21/23 11:00 Laboratory Results - last 24 hr 07/21/23 06:58: WBC 10.2 D, RBC 4.29, Hgb 13.4, Hct 42.2, MCV 98.2, MCH 31.2, MCHC 31.8, RDW 13.8, Plt Count 302, MPV 7.4, Neut % (Auto) 65.5, Lymph % (Auto) 26.5, [place] % (Auto) 6.7, Eos % (Auto) 0.6, Baso % (Auto) 0.8, Neut # (Auto) 6.7, Lymph # (Auto) 2.7, [place] # (Auto) 0.7, Eos # (Auto) 0.1, Baso # (Auto) 0.1, Sodium 135 L, Potassium 3.2 L, Chloride 96 L, Carbon Dioxide 32 H, Anion Gap 10.2, BUN 29 H, Creatinine 0.80, Estimated Creat Clear 67, Estimated GFR 72, Est GFR ( Amer) 87 D, Glucose 89, Calcium 9.3, Magnesium 2.2, Total Bilirubin 1.1, AST 32, ALT 11 L, Alkaline Phosphatase 68, Total Protein 5.7 L, Albumin 3.1 L, Globulin 2.6, Albumin/Globulin Ratio 1.2 I & O for Last 24 hours: Intake & Output 07/18/23 07/19/23 07/20/23 07/21/23 23:59 23:59 23:59 23:59 Intake Total 2047 / 2422 2450 / 2825 375 / 375 120 / 120 Output Total 1400 / 1800 800 / 800 375 / 375 Balance 647 / 622 1650 / 2025 0 / 0 119 / 119 Weight 75.52 kg 75.5 kg 75.5 kg 77.973 kg Microbiology Reports for the Last 24 Hours: Microbiology 07/19/23 12:05 Urine,Catheterized Urine Culture - Final Constitutional Constitutional: no acute distress *Routine HEENT Exam Head: Present normocephalic Eye: Present EOMI and PERRL ENT: Present mucous membranes moist *Routine Neck Exam Neck: Present supple; Absent lymphadenopathy *Routine Respiratory Exam Respiratory: Present CTA bilaterally *Routine Cardiovascular Exam Cardiovascular: Present RRR *Routine Abdominal Exam Abdominal: Present soft and normoactive bowel sounds; Absent tenderness *Routine Extremities Exam Extremities: Absent cyanosis, clubbing or edema *Routine Skin Exam Skin: Present warm; Absent rash *Routine Neurological Exam Neurological: Present alert and oriented X3 Assessment and Plan *Assessment and plan (1) Bowel obstruction: Status: Acute Qualifiers: Intestinal obstruction extent: unspecified extent Intestinal obstructi on type: other intestinal obstruction Qualified Code(s): K56.699 - Other intestinal obstruction unspecified as to partial versus complete obstruction Category: Medical Code(s): K56.609 - Unspecified intestinal obstruction, unspecified as to partial versus complete obstruction (2) Abdominal pain: Status: Acute Qualifiers: Abdominal location: unspecified location Qualified Code(s): R10.9 - Unspecified abdominal pain Category: Medical Code(s): R10.9 - Unspecified abdominal pain (3) Nausea & vomiting: Status: Acute Qualifiers: Vomiting type: unspecified Qualified Code(s): R11.2 - Nausea with vomiting, unspecified Category: Medical Code(s): R11.2 - Nausea with vomiting, unspecified (4) Hypertension: Status: Acute Qualifiers: Hypertension type: unspecified Qualified Code(s): I10 - Essential (primary) hypertension Category: Medical Code(s): I10 - Essential (primary) hypertension (5) COPD (chronic obstructive pulmonary disease): Status: Chronic Qualifiers: COPD type: emphysema Emphysema type: unspecified Qualified Code(s): J43.9 - Emphysema, unspecified Category: Medical Code(s): J44.9 - Chronic obstructive pulmonary disease, unspecified (6) Tobacco dependence syndrome: Status: Acute Category: Medical Code(s): F17.200 - Nicotine dependence, unspecified, uncomplicated Plan 68-year-old female with PMHx of hypertension, COPD, CAD, and prior bowel obstruction requiring surgical resection presenting with concern for abdominal pain. She has had multiple previous abdominal surgeries. She has apparently previously had colon resection for benign disease. She had developed a ventral hernia and had mesh placed. -Abdominal pain with nausea and vomiting, secondary to small bowel obstruction: Surgery consulted, appreciate their recommendations. Taken to the OR on 07/18. Adhesions found to taken down. No bowel resection performed. Showing improvement in bowel function. NG still in place. Will consider resuming clear liquids this afternoon versus tomorrow. Zofran for nausea as needed Morphine IV 2 mg as needed every 4 hours, monitor for toxicity. Discontinue IV fluids leukocytosis stable this morning at 6.6 Repeat CBC, CMP, magnesium ordered for the morning. Hypomagnesemia Hypokalemia - magnesium 2.2 this morning. No repletion this morning - Potassium 3.3. Repeat labs in the morning, will consider replacement tomorrow if potassium even lower History of hypertension, COPD: Condition reviewed and stable. Continue management Maximize O2 saturation. Currently on 3 L nasal cannula. Goal sats greater 90%. DuoNebs every 6 hours as needed nebulized as needed, continue daily maintenance inhaler with Tiotropium/olodaterol, 2 puffs daily Holding hypertensive medication given patient is n.p.o. and normotensive. -Tobacco dependence: On nicotine patch SCD for DVT prophylaxis. On Protonix for GI protection Full code advance diet as tolerated, continue current management
--- NOTE | 2023-07-21 17:22 | PC.NURSE ---
clear liquid diet tolerated by patient throughout my shift. she has had several liquid bowel movements today. no complaints of n/v or abd pain. patient has been encouraged to use her incentive spirometer. patient is sitting up on the side of the bed. O2 at 3L NC. VSS. call light in reach.
[2023-07-21] MEDS: IPRATROPIUM/ALBUTEROL 3 ML NEB IH (21:18)
--- NOTE | 2023-07-22 01:05 | PC.NURSE ---
RESP CARE RA WAS 84 PLACED PT BACK ON 3L. WEARS 2-3L AT HOME.
[2023-07-22 04:00] VITALS: BP 113/65; PULSE 101; RESP 16; TEMP 36.6; O2SAT 90; BMI 30.4
[2023-07-22 07:32] LABS: Alanine Aminotransferase 14 U/L (12-78); Albumin Level 3.2 g/dl (3.5-5.0); Albumin/Globulin Ratio 1.3 (1.1-1.8); Alkaline Phosphatase 68 U/L (38-126); Anion Gap 8.1 mEq/L (5-15); Aspartate Amino Transferase 27 U/L (14-36); Blood Urea Nitrogen 23 mg/dl (7-17); Calcium 9.5 mg/dl (8.4-10.2); Carbon Dioxide 36 mmol/L (22.0-30.0); Chloride 94 mmol/L (98-107); Creatinine Clearance Estimated 67 mL/min (50-200); Estimated Glomerular Filt Rate 72 ml/min (>60); GFR (African American) 87 ML/MIN (>60); Globulin 2.5 g/dL (1.3-3.2); Glucose 106 mg/dl (74-100); Potassium 3.1 mmoL/L (3.5-5.1); Sodium 135 mmol/L (136-145); Total Protein,Serum 5.7 g/dl (6.3-8.2)
[2023-07-22 08:00] VITALS: BP 122/77; PULSE 117; RESP 18; TEMP 36.9; O2SAT 90; O2SAT 95
[2023-07-22] MEDS: GABAPENTIN 300MG CAPSULE 300 MG PO (08:18)
[2023-07-22] MEDS: POTASSIUM CHLORIDE 20MEQ TAB 40 MEQ PO (10:15)
--- NOTE | 2023-07-22 10:32 | EXP.SURG.PN ---
Subjective Narrative: Patient without complaints. Tolerating clear liquid diet without issue. Moving bowels. No nausea. Denies abdominal pain. Exam Data for Last 24 hours Vital signs and Labs for Last 24 Hours: Temp Pulse Resp BP Pulse Ox O2 Del Method O2 Flow Rate 98.4 F 117 H 18 122/77 95 Room Air 3 07/22/23 08:00 07/22/23 08:00 07/22/23 08:00 07/22/23 08:00 07/22/23 08:00 07/22/23 08:00 07/22/23 08:00 Laboratory Results - last 24 hr 07/22/23 07:04: Sodium 135 L, Potassium 3.1 L, Chloride 94 L, Carbon Dioxide 36 H, Anion Gap 8.1, BUN 23 H, Creatinine 0.80, Estimated Creat Clear 67, Estimated GFR 72, Est GFR ( Amer) 87, Glucose 106 H, Calcium 9.5, Total Bilirubin 1.0, AST 27, ALT 14 D, Alkaline Phosphatase 68, Total Protein 5.7 L, Albumin 3.2 L, Globulin 2.5, Albumin/Globulin Ratio 1.3 I & O for Last 24 hours: Intake & Output 07/19/23 07/20/23 07/21/23 07/22/23 11:59 11:59 11:59 11:59 Intake Total 1900 / 1900 2450 / 2450 0 / 0 1065 / 1065 Output Total 1000 / 1000 775 / 775 1 / 1 0 / 0 Balance 900 / 900 1675 / 1675 -1 / -1 1065 / 1065 Weight 166 lb 7.184 oz 166 lb 7.184 oz 171 lb 14.4 oz 171 lb 14.4 oz Microbiology Reports for the Last 24 Hours: Microbiology 07/19/23 12:05 Urine,Catheterized Urine Culture - Final *Routine Abdominal Exam Abdominal: Present soft; Absent tenderness Progress Note: A&P Assessment and plan (1) Bowel obstruction: Status: Acute Assessment and plan: Will go ahead and give her a full liquid diet. If tolerating full liquid diet and reasonable for discharge as early as this afternoon from a surgical standpoint if deemed appropriate from hospitalist service. (2) Abdominal pain: Status: Acute (3) Nausea & vomiting: Status: Acute (4) Hypertension: Status: Acute (5) COPD (chronic obstructive pulmonary disease): Status: Chronic (6) Tobacco dependence syndrome: Status: Acute
--- NOTE | 2023-07-22 11:32 | P.DS_ITS ---
<Statement entered by Meek Bailey MD - 07/22/23 13:44> Attending attestation Patient was seen and evaluated at the bedside myself, agree with STEPHANY note. General Admission date:: 07/16/23 Discharge date: 07/22/23 HPI HPI HPI: Patient is a 68-year-old female with PMHx of hypertension, COPD, CAD, and prior bowel obstruction requiring surgical resection presenting with concern for abd ominal pain. She has had multiple previous abdominal surgeries. She has apparently previously had colon resection for benign disease. She had developed a ventral hernia and had mesh placed. Also she has previously undergone laparotomy with lysis of adhesions for bowel obstruction. This was all at outside facility. She had presented to this facility in 2017 with a bowel obstruction secondary to hernia recurrence with strangulated small bowel through the mesh. She required laparotomy with small bowel resection and primary closure done by Dr. Santana on 11/24/16. She was in her usual state of health until today at which time she had acute onset of abdominal pain with associated nausea and vomiting. This is mostly in the upper abdomen. She did have a bowel movement today prior to presentation. She has had emesis. The symptoms are similar to symptoms she has had with previous obstruction. She underwent CT scan of the abdomen pelvis which reveals dilated small bowel loops with a krueger sition point in the pelvis consistent with small bowel obstruction likely related to adhesions. Dr. Santana had performed EGD and colonoscopy in 2018. She was found to have some sigmoid diverticulosis with normal-appearing colon anastomosis. There were some polyps noted which were hyperplastic. Hospital Course Hospital Course Hospital Course: 68-year-old female with PMHx of hypertension, COPD, CAD, and prior bowel obstruction requiring surgical resection presenting with concern for abdominal p ain. She has had multiple previous abdominal surgeries. She has apparently previously had colon resection for benign disease. She had developed a ventral hernia and had mesh placed. -Abdominal pain with nausea and vomiting, secondary to small bowel obstruction: resolved tolerating diet, ok to DC from GS standpoint if toelrating diet f/u as OP with PCP and GS Exam Data for Last 24 hours Vital signs and Labs for Last 24 Hours: Temp Pulse Resp BP Pulse Ox O2 Del Method O2 Flow Rate 98.4 F 117 H 18 122/77 95 Nasal Cannula 2 07/22/23 08:00 07/22/23 08:00 07/22/23 08:00 07/22/23 08:00 07/22/23 08:00 07/22/23 11:00 07/22/23 11:00 Laboratory Results - last 24 hr 07/22/23 07:04: Sodium 135 L, Potassium 3.1 L, Chloride 94 L, Carbon Dioxide 36 H, Anion Gap 8.1, BUN 23 H, Creatinine 0.80, Estimated Creat Clear 67, Estimated GFR 72, Est GFR ( Amer) 87, Glucose 106 H, Calcium 9.5, Total Bilirubin 1.0, AST 27, ALT 14 D, Alkaline Phosphatase 68, Total Protein 5.7 L, Albumin 3.2 L, Globulin 2.5, Albumin/Globulin Ratio 1.3 I & O for Last 24 hours: Intake & Output 07/19/23 07/20/23 07/21/23 07/22/23 23:59 23:59 23:59 23:59 Intake Total 2450 / 2825 375 / 375 705 / 825 360 / 360 Output Total 800 / 800 375 / 375 1 / 1 0 / 0 Balance 1650 / 2025 0 / 0 704 / 824 360 / 360 Weight 75.5 kg 75.5 kg 77.973 kg 77.973 kg Microbiology Reports for the Last 24 Hours: Microbiology 07/19/23 12:05 Urine,Catheterized Urine Culture - Final Constitutional Constitutional: no acute distress *Routine HEENT Exam Head: Present normocephalic Eye: Present EOMI and PERRL ENT: Present mucous membranes moist *Routine Neck Exam Neck: Present supple; Absent lymphadenopathy *Routine Respiratory Exam Respiratory: Present CTA bilaterally *Routine Cardiovascular Exam Cardiovascular: Present RRR *Routine Abdominal Exam Abdominal: Present soft and normoactive bowel sounds; Absent tenderness *Routine Extremities Exam Extremities: Absent cyanosis, clubbing or edema *Routine Skin Exam Skin: Present warm; Absent rash *Routine Neurological Exam Neurological: Present alert and oriented X3 Results Data Completed and Pending Labs on day of discharge: Labs from last 24 hours 07/22/23 07:04 Sodium 135 L Potassium 3.1 L Chloride 94 L Carbon Dioxide 36 H Anion Gap 8.1 BUN 23 H Creatinine 0.80 Estimated Creat Clear 67 Estimated GFR 72 Est GFR ( Amer) 87 Glucose 106 H Calcium 9.5 Total Bilirubin 1.0 AST 27 ALT 14 D Alkaline Phosphatase 68 Total Protein 5.7 L Albumin 3.2 L Globulin 2.5 Albumin/Globulin Ratio 1.3 DS: Diagnosis Discharge Diagnosis (1) Bowel obstruction: Status: Acute Code(s): K56.609 - Unspecified intestinal obstruction, unspecified as to partial versus complete obstruction Qualifiers: Intestinal obstruction extent: unspecified extent Intestinal obstruction type: other intestinal obstruction Qualified Code(s): K56.699 - Other intestinal obstruction unspecified as to partial versus complete obstruction (2) Abdominal pain: Status: Acute Code(s): R10.9 - Unspecified abdominal pain Qualifiers: Abdominal location: unspecified location Qualified Code(s): R10.9 - Unspecified abdominal pain (3) Nausea & vomiting: Status: Acute Code(s): R11.2 - Nausea with vomiting, unspecified Qualifiers: Vomiting type: unspecified Qualified Code(s): R11.2 - Nausea with vomiting, unspecified (4) Hypertension: Status: Acute Code(s): I10 - Essential (primary) hypertension Qualifiers: Hypertension type: unspecified Qualified Code(s): I10 - Essential (primary) hypertension (5) COPD (chronic obstructive pulmonary disease): Status: Chronic Code(s): J44.9 - Chronic obstructive pulmonary disease, unspecified Qualifiers: COPD type: emphysema Emphysema type: unspecified Qualified Code(s): J43.9 - Emphysema, unspecified (6) Tobacco dependence syndrome: Status: Acute Code(s): F17.200 - Nicotine dependence, unspecified, uncomplicated Meds Home Medications and Allergies Home Medications Medication Instructions Recorded Confirmed Type aspirin 81 mg tablet,delayed 81 mg PO DAILY Supplement 08/28/17 07/16/23 History release (Adult Low Dose Aspirin) ipratropium 0.5 mg-albuterol 3 mg 3 ml inhalation QID PRN shortness 04/17/23 07/16/23 Rx (2.5 mg base)/3 mL nebulization of breath or wheezing 90 days #270 soln mL atorvastatin 80 mg tablet 80 mg PO DAILY Cholesterol #90 tabs 05/28/23 07/16/23 Rx varenicline 1 mg tablet (Chantix 1 mg PO BID #60 tabs 05/30/23 07/17/23 Rx Continuing Month Box) alendronate 70 mg tablet 70 mg PO WEEKLY 30 days #5 tabs 05/31/23 07/16/23 Rx benazepril 5 mg tablet 5 mg PO DAILY 30 days #30 tabs 05/31/23 07/16/23 Rx furosemide 20 mg tablet 20 mg PO BID Fluid 30 days #60 tabs 05/31/23 07/16/23 Rx gabapentin 300 mg capsule 300 mg PO Q8H nerve pain #90 caps 05/31/23 07/17/23 Rx metoprolol succinate 100 mg 100 mg PO DAILY High blood 05/31/23 07/16/23 Rx tablet,extended release 24 hr pressure 30 days #30 tabs omeprazole 20 mg capsule,delayed 20 mg PO BID GERD 30 days #60 caps 05/31/23 07/16/23 Rx release potassium chloride 10 mEq 10 meq PO DAILY 30 days #30 tabs 05/31/23 07/16/23 Rx tablet,extended release albuterol sulfate 90 mcg/actuation 1 inh inhalation QID PRN shortness 07/03/23 07/16/23 Rx aerosol inhaler of breath or wheezing 90 days #8.5 grams tiotropium 2.5 mcg-olodaterol 2.5 2 puff inhalation DAILY 90 days #4 07/03/23 07/17/23 Rx mcg/actuation mist for inhalation grams (Stiolto Respimat) New Prescriptions to Start Prescriptions: Allergies Allergy/AdvReac Type Severity Reaction Status Date / Time No Known Drug Allergies Allergy Unknown -- Verified 07/03/23 09:19 Discharge Plan Disposition Patient Disposition: Home, Self-Care Condition: Good Discharge Order Discharge Orders: Discharge Order (Routine); Ordered 07/22/23 Ordered By: Meek Bailey Follow up Plan Follow up with: Nemesio Trivedi MD [Staff Physician] - 2 weeks (Call Sunday for 2 week follow up appointment.) Prescriptions/Medication Reconciliation: Continued albuterol sulfate 90 mcg/actuation HFA aerosol inhaler 1 inh INHALATION QID PRN (Reason: shortness of breath or wheezing) 90 Days Qty: 8.5 3RF aspirin [Adult Low Dose Aspirin] 81 mg tablet,delayed release (DR/EC) 81 mg PO DAILY MDD supplement varenicline [Chantix Continuing Month Box] 1 mg tablet 1 mg PO BID Qty: 60 4RF ipratropium-albuterol 0.5 mg-3 mg(2.5 mg base)/3 mL solution for nebulization 3 ml inhalation QID PRN (Reason: shortness of breath or wheezing) 90 Days Qty: 270 3RF atorvastatin 80 mg tablet 80 mg PO DAILY Qty: 90 3RF alendronate 70 mg tablet 70 mg PO WEEKLY 30 Days Qty: 5 2RF benazepril 5 mg tablet 5 mg PO DAILY 30 Days Qty: 30 2RF furosemide 20 mg tablet 20 mg PO BID 30 Days Qty: 60 2RF potassium chloride 10 mEq tablet extended release 10 meq PO DAILY 30 Days Qty: 30 2RF omeprazole 20 mg capsule,delayed release(DR/EC) 20 mg PO BID 30 Days Qty: 60 2RF metoprolol succinate 100 mg tablet extended release 24 hr 100 mg PO DAILY 30 Days Qty: 30 2RF gabapentin 300 mg capsule 300 mg PO Q8H Qty: 90 2RF Stiolto Respimat 2.5-2.5 mcg/actuation mist 2 puff inhalation DAILY 90 Days Qty: 4 2RF Problem Reconciliation Problems Reviewed?: Yes Patient Discharge Instructions ACTIVITY: Ambulate as tolerated DIET: continue same diet Patient Instructions: DI for Small Bowel Obstruction, DI for Surgical Site Infection, Catheter-associated Urinary Tract Infection Providers Primary Care Provider: Abhijeet Wilson Admit Provider: Fawad Curry Attending Provider: Fawad Curry
--- NOTE | 2023-07-23 14:48 | CARE MANAGER ---
Called and spoke with patient today regarding recent discharge. Patient stated that she was not doing well and may need to come back to ER. When asked what was going on, she stated she was unable to talk right now and hung up.
== END 2023-07-22 15:07 | disposition home or self-care (01) | DRG 337 ==
LOC: ER 16:55 → 2ND 19:03
PROVIDERS: Emergency Medicine; Surgery; Admitting Provider Internal Medicine Adolescent Medicine; Emergency Provider Emergency Medicine; PCP Family Medicine; Visit Provider Internal Medicine Adolescent Medicine
PROC: (CPT 49320; principal; 2023-07-19 11:00)
DX: K56.51 Intestinal adhesions [bands], with partial obstruction (principal); I10 Essential (primary) hypertension; J43.9 Emphysema, unspecified; F17.210 Nicotine dependence, cigarettes, uncomplicated; I25.10 Atherosclerotic heart disease of native coronary artery without angina pectoris
CPT/HCPCS: 49329; 36415; 71045; 74018; 74021; 74177; 80048; 80053; 81001; 82962; 83605; 83690; 83735; 84484; 85025; 87086; 93005; 94640; 94761; 99285; J3490; J2405; J3475; Q9967

== ENCOUNTER 2023-08-07 10:16 | Outpatient (CLI) | payer MEDICARE, SELFPAY ==
[2023-08-07 10:53] LABS: Blood Urea Nitrogen 12 mg/dl (7-17); Estimated Glomerular Filt Rate 83 ml/min (>60); GFR (African American) 101 ML/MIN (>60)
== END 2023-08-07 23:59 ==
LOC: LAB 10:17
PROVIDERS: PCP Family Medicine; Visit Provider Surgery
DX: R10.9 Unspecified abdominal pain (principal)
CPT/HCPCS: 36415; 82565; 84520

== ENCOUNTER 2023-08-10 13:39 | Outpatient (CLI) | payer MEDICARE, SELFPAY ==
--- NOTE | 2023-08-10 13:40 | CT_ITS ---
FINAL REPORT TECHNIQUE: After the administration of oral and intravenous contrast, axial images were obtained through the abdomen and pelvis by computed tomography. The study was performed with techniques to keep radiation dose as low as reasonably achievable, (ALARA). Individual dose reduction techniques using automated exposure control or adjustment of mA and/or kV according to the patient's size were employed. CLINICAL HISTORY: abdominal pain COMPARISON: 07/16/2023 FINDINGS: Abdomen: There is scarring in the lung bases. The liver parenchyma is homogeneous. The gallbladder is surgically absent. The spleen, pancreas, and adrenal glands are unremarkable. There is a benign appearing cyst in the medial left kidney measuring 2.0 cm. The right kidney is unremarkable. There is stranding within the midline anterior abdominal wall consistent with prior surgery. There is a small fat-containing mesenteric hernia seen on images 36 through 39 of series 2. Previously noted distended and fluid-filled bowel has resolved. There is now abnormal rotation of the mesentery, particularly in the right hemiabdomen. This is well-seen on axial images 54 through 58 of series 2. Findings are concerning for presence of an internal hernia. Pelvis: There are postoperative changes in the right lower quadrant. There is moderate diverticulosis with no evidence of diverticulitis. The appendix is not identified. The urinary bladder is unremarkable. There is no free fluid or adenopathy. IMPRESSION: Postoperative tube changes in the midline anterior abdominal wall and right lower quadrant. Swirling of the mesentery, particularly in the right hemiabdomen, concerning for possible internal hernia or small bowel volvulus. Small fat-containing hernia of the midline intra-abdominal wall. Reviewed, Interpreted and Dictated by Ketan Yi MD Transcribed by Paulette Gibson Authenticated and [facility]
[2023-08-10] MEDS: SODIUM CHLORIDE 0.9% 10ML SYR (RAD ONLY) 10 ML IV (13:51)
[2023-08-10] MEDS: IOPAMIDOL-370 (76%);100ML BOTTLE 75 ML IV (13:51)
[2023-08-10] MEDS: BARIUM SULFATE(READI-CAT2);450ML BOTTLE 450 ML PO (13:51)
== END 2023-08-10 23:59 | disposition home or self-care (01) ==
LOC: RAD 13:40
PROVIDERS: PCP Family Medicine; Visit Provider Surgery
DX: R10.9 Unspecified abdominal pain (principal)
CPT/HCPCS: 74177; Q9967

== ENCOUNTER 2023-08-17 09:14 | Emergency (ER) | payer MEDICARE, SELFPAY ==
[2023-08-17 09:30] VITALS: BP 136/92; PULSE 89; RESP 20; TEMP 36.5; O2SAT 94; BMI 26.5
--- NOTE | 2023-08-17 09:42 | ED_ITS ---
Discharge Plan Disposition Patient Disposition: Home, Self-Care Condition: Good Prescriptions Prescriptions: No Action albuterol sulfate 90 mcg/actuation HFA aerosol inhaler 1 inh INHALATION QID PRN (Reason: shortness of breath or wheezing) 90 Days Qty: 8.5 3RF cephalexin 500 mg capsule 500 mg PO TID 10 Days Qty: 30 0RF aspirin [Adult Low Dose Aspirin] 81 mg tablet,delayed release (DR/EC) 81 mg PO DAILY MDD supplement ipratropium-albuterol 0.5 mg-3 mg(2.5 mg base)/3 mL solution for nebulization 3 ml inhalation QID PRN (Reason: shortness of breath or wheezing) 90 Days Qty: 270 3RF atorvastatin 80 mg tablet 80 mg PO DAILY Qty: 90 3RF alendronate 70 mg tablet 70 mg PO WEEKLY 30 Days Qty: 5 2RF benazepril 5 mg tablet 5 mg PO DAILY 30 Days Qty: 30 2RF furosemide 20 mg tablet 20 mg PO BID 30 Days Qty: 60 2RF potassium chloride 10 mEq tablet extended release 10 meq PO DAILY 30 Days Qty: 30 2RF omeprazole 20 mg capsule,delayed release(DR/EC) 20 mg PO BID 30 Days Qty: 60 2RF metoprolol succinate 100 mg tablet extended release 24 hr 100 mg PO DAILY 30 Days Qty: 30 2RF gabapentin 300 mg capsule 300 mg PO Q8H Qty: 90 2RF Stiolto Respimat 2.5-2.5 mcg/actuation mist 2 puff inhalation DAILY 90 Days Qty: 4 2RF Referrals Follow up/Referrals: Nemesio Trivedi MD [Staff Physician] - See instructions Abhijeet Wilson MD [Primary Care Provider] - See instructions Activity Restrictions/Add. Instructions Additional Instructions/Restrictions: You were seen in the ED today due to abdominal pain. CT shows bowel wall thickening and inflammation. Please follow-up with your surgeon. Return to the ED if symptoms worsen or if new concerning symptoms arise. Thank you. Clinical Impressions Clinical Impression: Abdominal pain Qualifiers: Abdominal location: lower abdomen, unspecified Qualified Code(s): R10.30 - Lower abdominal pain, unspecified Instructions Patient Instructions: DI for Acute Abdominal Pain Discharge ED Provider: nEdy Gracia Adult HPI General Chief complaint: Abdominal Pain Stated complaint: bowel obstructons, sent by Dr Trivedi Time Seen by Provider: 08/17/23 09:21 Mode of Arrival: Ambulatory Source of Information: Patient Limitations: No Limitations Description of Symptoms (Recalled from ER Triage Doc. by RN): pt to ed c/o lower abd pain with bowel movements. pt states she was recently in the OR for a SBO and has been following with general surgery. pt states she had a CT last week that shown she had a small unbilical hernia. pt denies blood in her stool, denies urinary symptoms. pt states she has been having diarrhea x2 days. History of Present Illness HPI narrative: Patient is a 68-year-old female with history of HTN, CAD, COPD, multiple abdominal surgeries who presents due to abdominal pain. Patient states for the past 2 days she has had excruciating abdominal pain with bowel movements and with passing gas. Patient states the pain begins in her lower abdomen and wraps around to her rectum. States she has had lower abdominal pain without bowel movements as well however pain is significantly worsened when she is having a bowel movement or passing gas. Denies any fevers, nausea/vomiting, difficulty urinating. States she has had diarrhea, denies any blood in stool. Patient states approximately 6 to 7 years ago she had bowel resection for suspected colon cancer and since then has had multiple bowel obstructions requiring surgery, most recently last month. Related Data Home Medications Medication Instructions Recorded Confirmed aspirin 81 mg tablet,delayed 81 mg PO DAILY Supplement 08/28/17 08/14/23 release (Adult Low Dose Aspirin) Previous Rx's Medication Instructions Recorded ipratropium 0.5 mg-albuterol 3 mg 3 ml inhalation QID PRN shortness 04/17/23 (2.5 mg base)/3 mL nebulization of breath or wheezing 90 days #270 soln mL atorvastatin 80 mg tablet 80 mg PO DAILY Cholesterol #90 tabs 05/28/23 alendronate 70 mg tablet 70 mg PO WEEKLY 30 days #5 tabs 05/31/23 benazepril 5 mg tablet 5 mg PO DAILY 30 days #30 tabs 05/31/23 furosemide 20 mg tablet 20 mg PO BID Fluid 30 days #60 tabs 05/31/23 gabapentin 300 mg capsule 300 mg PO Q8H nerve pain #90 caps 05/31/23 metoprolol succinate 100 mg 100 mg PO DAILY High blood 05/31/23 tablet,extended release 24 hr pressure 30 days #30 tabs omeprazole 20 mg capsule,delayed 20 mg PO BID GERD 30 days #60 caps 05/31/23 release potassium chloride 10 mEq 10 meq PO DAILY 30 days #30 tabs 05/31/23 tablet,extended release albuterol sulfate 90 mcg/actuation 1 inh inhalation QID PRN shortness 07/03/23 aerosol inhaler of breath or wheezing 90 days #8.5 grams tiotropium 2.5 mcg-olodaterol 2.5 2 puff inhalation DAILY 90 days #4 07/03/23 mcg/actuation mist for inhalation grams (Stiolto Respimat) cephalexin 500 mg capsule 500 mg PO TID 10 days #30 caps 08/07/23 Allergies Allergy/AdvReac Type Severity Reaction Status Date / Time No Known Drug Allergies Allergy Unknown -- Verified 08/14/23 10:17 [facility] Disclaimer: The information contained in this section may have been updated after the patient was seen, as this information can be updated by other users. Medical History Allergic rhinitis Tobacco abuse counseling Screening for lung cancer Nocturnal hypoxemia Dyspnea on exertion Pulmonary emphysema Allergic rhinitis, unspecified Smoking greater than 30 pack years Pulmonary nodule, left Tobacco abuse COPD (chronic obstructive pulmonary disease) Edema Surgical History H/O right heart catheterization Previous back surgery History of colonoscopy History of hysterectomy History of cholecystectomy H/O oral surgery History of colon surgery History of excision of lesion Family History Other Heart attack Social History Smoking Status: Current every day smoker tobacco type: cigarettes packs per day: 1 second hand exposure: No alcohol intake: never counseling provided: provider counseling substance use type: denies use current occupational status: retired Travel in the last 8 weeks: None household members: none housing: house current occupational exposures/hazards: No caffeine: No ROS Obtained: Yes All systems reviewed & no additional complaints except as documented Gastrointestinal Gastrointestingal: Reports abdominal pain Physical Exam General General appearance: alert and in no apparent distress Head Head exam: atraumatic, normocephalic and normal inspection Eye Eye exam: Present normal appearance, PERRL and EOMI ENT ENT exam: Present normal exam, normal oropharynx, mucous membranes moist, TM's normal bilaterally and normal external ear exam Neck Neck exam: Present normal inspection, full ROM and trachea midline; Absent meningismus or lymphadenopathy Chest Chest inspection: Present normal inspection and symmetric chest wall rise; Absent tenderness Respiratory Respiratory exam: Present normal lung sounds bilaterally; Absent respiratory distress Cardiovascular Cardiovascular exam: Present regular rate and normal rhythm; Absent JVD Abdominal Exam Abdominal exam: Present soft, tenderness and normal bowel sounds; Absent distention or guarding Abdominal tenderness: Present RLQ and suprapubic Rectal Exam Rectal exam: Present normal inspection 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 Extremities Exam Extremities exam: Present normal inspection, full ROM and normal capillary refill; Absent calf tenderness Back Exam Back exam: Present normal inspection; Absent tenderness Neurological Exam Neurological exam: Present alert and oriented X3 Psychiatric Psychiatric exam: Present normal affect and normal mood Skin Skin exam: Present warm, dry, intact and normal color Lymphatic Lymphatic Findings: no adenopathy Medical Decision Making [place] Inquiry Pt receiving controlled substance: No Vital Signs: 08/17/23 09:30 Temperature 97.7 F Temperature Source Oral Pulse Rate [Left Radial] 89 Respiratory Rate 20 Blood Pressure [Right Arm] 136/92 H Blood Pressure Mean [Right Arm] 106 02 Sat by Pulse Oximetry 94 L Oxygen Delivery Method Room Air Lab Data Lab Results 08/17/23 09:30: Urine Color Yellow, Urine Appearance Clear, Urine pH 6.0, Ur Specific [place] <= 1.005, Urine Protein Negative, Urine Glucose (UA) Negative, Urine Ketones Negative, Urine Blood Trace-i, Urine Nitrate Negative, Urine Bilirubin Negative, Urine Urobilinogen 0.2, Ur Leukocyte Esterase Negative, Urine RBC None, Urine WBC 3-5, Ur Squamous Epith Cells 5-10, Urine Bacteria Trace 08/17/23 09:36: WBC 9.6, RBC 4.62, Hgb 14.5, Hct 45.0, MCV 97.6, MCH 31.4 H, MCHC 32.2, RDW 14.8, Plt Count 335, MPV 7.2 L, Neut % (Auto) 54.5, Lymph % (Auto) 39.8, [place] % (Auto) 3.6, Eos % (Auto) 1.2, Baso % (Auto) 1.0, Neut # (Auto) 5.2, Lymph # (Auto) 3.8, [place] # (Auto) 0.3, Eos # (Auto) 0.1, Baso # (Auto) 0.1, Sodium 142, Potassium 3.0 L, Chloride 103, Carbon Dioxide 32 H, Anion Gap 10.0, BUN 8, Creatinine 0.80, Estimated Creat Clear 59, Estimated GFR 72, Est GFR ( Amer) 87, Glucose 141 H, Lactate 1.8, Calcium 9.7, Total Bilirubin 1.1, AST 26, ALT 20, Alkaline Phosphatase 89, Total Protein 7.2 D, Albumin 4.0, Globulin 3.2, Albumin/Globulin Ratio 1.3, Lipase 60 08/17/23 09:36 08/17/23 09:36 Orders (Tests/Meds): ED MEDICATIONS Discontinued Medications Generic Name Dose Route Start Last Admin Trade Name Freq PRN Reason Stop Dose Admin Iopamidol 75 ml 08/17/23 10:20 08/17/23 10:21 Iopamidol-370 (76%);100ml Bottle IV 08/17/23 10:21 75 ml ONCE ONE Administration Morphine Sulfate 4 mg 08/17/23 09:43 08/17/23 09:57 Morphine 4mg/Ml Syringe IV 08/17/23 09:44 4 mg ONCE ONE Administration Potassium Chloride 40 meq 08/17/23 10:28 08/17/23 10:54 Potassium Chloride 20meq Tab PO 08/17/23 10:29 Not Given ONCE ONE Potassium Chloride 40 meq 08/17/23 10:53 08/17/23 10:58 Potassium Chloride 20meq/15ml Udc PO 08/17/23 10:54 40 meq ONCE ONE Administration Sodium Chloride 10 ml 08/17/23 10:20 08/17/23 10:21 Sodium Chloride 0.9% 10ml Syr (Rad Only) IV 08/17/23 10:21 10 ml ONCE ONE Administration ORDERS Category Date Time Status CT abdomen pelvis w con Stat Cat Scan 08/17/23 09:52 Completed Complete Blood Count Auto Diff Stat Lab 08/17/23 09:36 Completed Comprehensive Metabolic Panel Stat Lab 08/17/23 09:36 Completed Lactic Acid Stat Lab 08/17/23 09:36 Completed Lipase Stat Lab 08/17/23 09:36 Completed Urinalysis and Microscopic Stat Lab 08/17/23 09:30 Completed Medical Decision Narrative: In summary, patient is 68-year-old female with history of multiple abdominal surgeries, evaluated in the emergency department today due to abdominal pain with bowel movements. On arrival, patient is hemodynamically stable with normal vital signs. On examination, patient has RLQ, suprapubic tenderness. Differential diagnosis includes but is not limited to urinary tract infection, intra-abdominal infection, bowel obstruction. Patient given IV morphine. Workup initiated including CBC, CMP, lipase, lactate, urinalysis, CT Abdo/pelvis with contrast. Labs independently interpreted by me and significant for potassium 3.0. Patient given 40 mill equivalents oral potassium chloride repletion. Imaging independently interpreted by me and significant for bowel wall thickening and inflammation, linear density in sigmoid colon. On reevaluation, patient states she feels well. Pain is controlled and she is tolerating oral intake without difficulty. She is appropriate for discharge at this time. Patient states she will follow-up with her surgeon. Patient counseled on home care, given strict return precautions and agreeable to plan. I considered admitting the patient to the hospital for observation, and in shared decision-making with patient, decided outpatient management. Critical Care Critical Care Time Critical Care Time: No
[2023-08-17 09:47] LABS: Microscopic, Urine URINE MICROSCOPIC (MICROSCOPIC)
[2023-08-17 09:52] LABS: Basophils # 0.1 K/mm3 (0-0.2); Eosinophils # 0.1 K/mm3 (0.0-0.4); Eosinophils % 1.2 % (0.1-12.0); Hemoglobin 14.5 g/dL (12.2-16.2); Lymphocytes # 3.8 K/mm3 (0.7-4.5); Lymphocytes % 39.8 % (10-50); Mean Corpuscular HGB Conc 32.2 g/dL (31.8-35.4); Mean Corpuscular Hemoglobin 31.4 pg (27.0-31.2); Mean Corpuscular Volume 97.6 fl (81-99); Mean Platelet Volume 7.2 fl (7.4-10.4); Monocytes # 0.3 K/mm3 (0.1-1.0); Monocytes % 3.6 % (1.7-9.3); Neutrophils # 5.2 K/mm3 (1.8-7.8); Neutrophils % 54.5 % (37.0-80.0); Platelet Count 335 K/mm3 (142-424); Red Blood Count 4.62 M/mm3 (4.20-5.40); Red Cell Distribution Width 14.8 % (11.5-17.5); White Blood Count 9.6 K/mm3 (4.8-10.8)
--- NOTE | 2023-08-17 09:52 | CT_ITS ---
FINAL REPORT TECHNIQUE: After the administration of oral and intravenous contrast, axial images were obtained through the abdomen and pelvis by computed tomography. The study was performed with techniques to keep radiation dose as low as reasonably achievable, (ALARA). Individual dose reduction techniques using automated exposure control or adjustment of mA and/or kV according to the patient's size were employed. CLINICAL HISTORY: RLQ pain, pain w bowel movements, recent surgery COMPARISON: 08/10/2023 FINDINGS: Abdomen: There is scarring in the right mid lung and lingula. The liver parenchyma is homogeneous. The gallbladder is absent. There is calcified granuloma in the spleen. The pancreas and adrenals are unremarkable. There is a benign-appearing cyst in the medial portion of the right kidney. There is a small fat containing hernia in the midline anterior abdominal wall measuring 1.4 cm. Pelvis: The appendix is not identified. There is linear density in the sigmoid colon well seen on coronal image 48 of series 1001. There is also mucosal thickening and surrounding edema which is new compared to the study from 08/10/2023. The urinary bladder is unremarkable. There is no free fluid or adenopathy. IMPRESSION: Mucosal thickening, inflammation, and linear density in the sigmoid colon, new from prior. Fat containing hernia. No evidence of abscess. Reviewed, Interpreted and Dictated by Ketan Yi MD Transcribed by Anali Griffin Authenticated and . [facility]
[2023-08-17 09:55] LABS: Chloride 103 mmol/L (98-107); Sodium 142 mmol/L (136-145)
[2023-08-17] MEDS: MORPHINE 4MG/ML SYRINGE 4 MG IV (09:57)
[2023-08-17 09:58] LABS: Alanine Aminotransferase 20 U/L (12-78); Albumin/Globulin Ratio 1.3 (1.1-1.8); Alkaline Phosphatase 89 U/L (38-126); Aspartate Amino Transferase 26 U/L (14-36); Bilirubin,Total 1.1 mg/dl (0.2-1.3); Blood Urea Nitrogen 8 mg/dl (7-17); Calcium 9.7 mg/dl (8.4-10.2); Carbon Dioxide 32 mmol/L (22.0-30.0); Creatinine Clearance Estimated 59 mL/min (50-200); Estimated Glomerular Filt Rate 72 ml/min (>60); GFR (African American) 87 ML/MIN (>60); Globulin 3.2 g/dL (1.3-3.2); Glucose 141 mg/dl (74-100); Lipase 60 U/L (23-300); Total Protein,Serum 7.2 g/dl (6.3-8.2)
[2023-08-17 09:59] LABS: Lactic Acid 1.8 mmol/L (0.7-2.1)
[2023-08-17 10:01] LABS: Appearance,Urine CLEAR (Clear); Bilirubin,Urine Negative (Negative); Blood, Urine TRACE-I (Negative); Color,Urine YELLOW (Yellow); Glucose,Urine (UA) Negative (Negative); Ketones,Urine Negative (Negative); Leukocyte Esterase,Urine Negative (Negative); Nitrate,Urine Negative (Negative); Protein,Urine Negative (Negative); Specific Gravity, Urine <= 1.005 (1.005-1.030); Urobilinogen,Urine 0.2 EU/dl (0.2)
--- NOTE | 2023-08-17 10:17 | PC.NURSE ---
pt to CT via wheelchair
[2023-08-17] MEDS: IOPAMIDOL-370 (76%);100ML BOTTLE 75 ML IV (10:21)
[2023-08-17] MEDS: SODIUM CHLORIDE 0.9% 10ML SYR (RAD ONLY) 10 ML IV (10:21)
[2023-08-17] MEDS: POTASSIUM CHLORIDE 20MEQ/15ML UDC 40 MEQ PO (10:58)
[2023-08-17 11:04] LABS: Bacteria,Urine Trace /lpf
[2023-08-17 12:29] VITALS: BP 135/88; PULSE 80; RESP 19; TEMP 36.6; O2SAT 96
== END 2023-08-17 12:30 | disposition home or self-care (01) ==
PROVIDERS: Emergency Provider Student in an Organized Health Care Education/Training Program; PCP Family Medicine
DX: R10.30 Lower abdominal pain, unspecified (principal); E87.6 Hypokalemia; F17.210 Nicotine dependence, cigarettes, uncomplicated; J44.9 Chronic obstructive pulmonary disease, unspecified; I11.9 Hypertensive heart disease without heart failure; I25.10 Atherosclerotic heart disease of native coronary artery without angina pectoris
CPT/HCPCS: 74177; 80053; 81001; 83605; 83690; 85025; 96374; 99285; Q9967

== ENCOUNTER 2023-09-19 10:34 | Outpatient (CLI) | payer MEDICARE, SELFPAY ==
[2023-09-19 11:33] LABS: Alanine Aminotransferase 15 U/L (12-78); Albumin Level 3.7 g/dl (3.5-5.0); Alkaline Phosphatase 69 U/L (38-126); Aspartate Amino Transferase 23 U/L (14-36); Bilirubin,Direct 0.1 mg/dl (0.0-0.4); Bilirubin,Indirect 0.3 mg/dL (0.0-0.9); Bilirubin,Total 0.4 mg/dl (0.2-1.3); Bilirubin,Unconjugated 0.3 mg/dL (0.0-1.1); Chol/HDL Ratio 3.1 (1-3.5); Cholesterol 116 mg/dl (140-200); HDL Cholesterol 37 mg/dl (40-60); Total Protein,Serum 6.4 g/dl (6.3-8.2); Triglycerides 198 mg/dl (30-150); VLDL Cholesterol 40 mg/dL (0-40)
[2023-09-19 11:44] LABS: Direct LDL Cholesterol 55.81 mg/dL (100-129)
[2023-09-19 11:48] LABS: Hemoglobin A1C 5.5 % (4.0-6.0)
--- NOTE | 2023-09-19 12:35 | CT_ITS ---
FINAL REPORT TECHNIQUE: Axial CT images of the chest were obtained without contrast. Low-dose protocol was utilized. This study was performed with techniques to keep radiation doses as low as reasonably achievable (ALARA). Individualized dose reduction techniques using automated exposure control or adjustment of mA and/or kV according to the patient's size were employed. CLINICAL HISTORY: lung cancer screening current smoker 1ppd x52 years COMPARISON: 07/21/2022 FINDINGS: CT CHEST WITHOUT, LOW DOSE SCREENING CT Di Vol: 2.90 mGy DLP: 96.38 mGy*cm There is no axillary, mediastinal, or hilar adenopathy. The heart size is normal. There are dense coronary artery calcifications. There is no pleural or pericardial effusion. The lung windows show no visualization of the previously noted nodule at the right lung base. Biapical pleural and parenchymal scarring is noted. There is scarring in the right middle lobe and lingula. Limited images of the upper abdomen demonstrate no acute findings. IMPRESSION: LR Category 1: 12 month follow-up low-dose chest CT is recommended. Reviewed, Interpreted and Dictated by Ketan Yi MD Transcribed by Anali Griffin Authenticated and [facility]
== END 2023-09-19 23:59 | disposition home or self-care (01) ==
LOC: RAD 10:35
PROVIDERS: Physician Assistant; PCP Family Medicine; Visit Provider Internal Medicine Pulmonary Disease
DX: I11.9 Hypertensive heart disease without heart failure (principal); I25.10 Atherosclerotic heart disease of native coronary artery without angina pectoris; R06.09 Other forms of dyspnea; R94.31 Abnormal electrocardiogram [ECG] [EKG]; R73.9 Hyperglycemia, unspecified; F17.210 Nicotine dependence, cigarettes, uncomplicated
CPT/HCPCS: 36415; 71271; 80061; 80076; 83036

== ENCOUNTER 2023-12-09 08:39 | Outpatient (CLI) | payer MEDICARE, SELFPAY ==
[2023-12-11 20:24] LABS: Calprotectin, Fecal 100 ug/g (0-120)
[2023-12-12 14:13] LABS: Pancreatic Elastase, Fecal 645 (>200)
== END 2023-12-09 23:59 | disposition home or self-care (01) ==
LOC: LAB.DROPOF 08:40
PROVIDERS: PCP Family Medicine; Visit Provider Nurse Practitioner
DX: R10.10 Upper abdominal pain, unspecified (principal); K92.1 Melena; R10.30 Lower abdominal pain, unspecified; Z86.010 Personal history of colon polyps; Z90.49 Acquired absence of other specified parts of digestive tract
CPT/HCPCS: 82656; 83993

== ENCOUNTER 2024-03-11 08:41 | Outpatient (CLI) | payer MEDICARE, SELFPAY ==
--- NOTE | 2024-03-11 08:41 | XR_ITS ---
FINAL REPORT TECHNIQUE: Bone densitometry calculations of the lumbar spine and left hip were obtained. CLINICAL HISTORY: osteoporosis COMPARISON: 07/21/2022 FINDINGS: Using L1-4, the bone mineral density of the spine is 0.770 g/cm2, corresponding to T-score of -2.5. Using the left hip, the bone mineral density of the femoral neck is 0.573 g/cm2, corresponding to a T-score of -3.0. NOTE: T-score: Standard deviation compared with peak bone mass of young adult mean. *Following the recommendations of the International Society of Bone densitometry, classification of hip BMD is based on the lower of two T-scores; total hip or femoral neck. IMPRESSION: Diminished bone mineral density of the lumbar spine and left hip consistent with osteoporosis. Reviewed, Interpreted and Dictated by Ketan Yi MD Transcribed by Lela Hernandez Authenticated and [facility]
== END 2024-03-11 23:59 | disposition home or self-care (01) ==
LOC: RAD 08:41
PROVIDERS: PCP Family Medicine; Visit Provider Family Medicine
DX: M81.0 Age-related osteoporosis without current pathological fracture (principal)
CPT/HCPCS: 77080

== ENCOUNTER 2024-06-23 09:45 | Outpatient (CLI) | payer MEDICARE, SELFPAY ==
[2024-06-24 01:31] LABS: Basophils # 0.1 K/mm3 (0-0.2); Basophils % 0.7 % (0.1-2.0); Eosinophils # 0.2 K/mm3 (0.0-0.4); Eosinophils % 2.4 % (0.1-12.0); Lymphocytes # 4.3 K/mm3 (0.7-4.5); Lymphocytes % 55.9 % (10-50); Mean Corpuscular HGB Conc 31.4 g/dL (31.8-35.4); Mean Corpuscular Hemoglobin 30.8 pg (27.0-31.2); Mean Corpuscular Volume 98.1 fl (81-99); Mean Platelet Volume 9.2 fl (7.4-10.4); Monocytes # 0.5 K/mm3 (0.1-1.0); Monocytes % 6.3 % (1.7-9.3); Neutrophils # 2.6 K/mm3 (1.8-7.8); Neutrophils % 34.6 % (37.0-80.0); Platelet Count 287 K/mm3 (142-424); Red Cell Distribution Width 14.5 % (11.5-17.5); White Blood Count 7.6 K/mm3 (4.8-10.8)
[2024-06-24 01:34] LABS: MANUAL DIFFERENTIAL MANUAL DIFFERENTIAL (MANUAL DIFF)
[2024-06-24 02:23] LABS: Chloride 101 mmol/L (98-107); Potassium 4.4 mmoL/L (3.5-5.1); Sodium 142 mmol/L (136-145)
[2024-06-24 02:25] LABS: Blood Urea Nitrogen 23 mg/dl (7-17)
[2024-06-24 02:26] LABS: Alanine Aminotransferase 16 U/L (12-78); Albumin/Globulin Ratio 1.8 (1.1-1.8); Alkaline Phosphatase 71 U/L (38-126); Anion Gap 12.4 mEq/L (5-15); Aspartate Amino Transferase 26 U/L (14-36); Bilirubin,Total 0.8 mg/dl (0.2-1.3); Calcium 10.2 mg/dl (8.4-10.2); Carbon Dioxide 33 mmol/L (22.0-30.0); Cholesterol 166 mg/dl (140-200); Estimated Glomerular Filt Rate 62 ml/min (>60); GFR (African American) 75 ML/MIN (>60); Globulin 2.8 g/dL (1.3-3.2); Glucose 88 mg/dl (74-100); Total Protein,Serum 7.8 g/dl (6.3-8.2); Triglycerides 180 mg/dl (30-150); VLDL Cholesterol 36 mg/dL (0-40)
[2024-06-24 02:27] LABS: Chol/HDL Ratio 3.5 (1-3.5); HDL Cholesterol 48 mg/dl (40-60)
[2024-06-24 02:38] LABS: Direct LDL Cholesterol 77.97 mg/dL (100-129); Lymphocytes % 66 % (10-50); Monocytes % 6 % (2-9); Neutrophils % 25 % (42-76); Total Cells Counted 100
[2024-06-24 02:39] LABS: Platelet Estimate Normal; RBC Morphology Normal
[2024-06-24 02:40] LABS: Hemoglobin A1C 5.5 % (4.0-6.0)
[2024-06-24 03:08] LABS: HIV Combo NEGATIVE (Negative)
[2024-06-24 03:15] LABS: Hepatitis C Ab Qual. W/ RFX NEGATIVE (Negative)
== END 2024-06-23 23:59 | disposition home or self-care (01) ==
LOC: LAB.DROPOF 06-25 15:44
PROVIDERS: Nurse Practitioner Family; PCP Family Medicine; Visit Provider Family Medicine
DX: E78.5 Hyperlipidemia, unspecified (principal); Z11.4 Encounter for screening for human immunodeficiency virus [HIV]; Z11.59 Encounter for screening for other viral diseases; I10 Essential (primary) hypertension
CPT/HCPCS: 80053; 80061; 80074; 83036; 84443; 85007; 85025; 85027; 87389

== ENCOUNTER 2024-07-02 14:33 | Outpatient (CLI) | payer MEDICARE, SELFPAY ==
--- NOTE | 2024-07-02 14:34 | MM_ITS ---
PROCEDURE INFORMATION: Exam: MG Bilateral Screening 3D Mammography Exam date and time: 07/02/2024 2:40 PM Age: 69 years old Clinical indication: Screening. No family history of breast cancer. TECHNIQUE: Imaging protocol: Bilateral Screening tomosynthesis and 2D mammography including computer-aided detection (CAD) when performed. COMPARISON: 1. MG MM DIG SCREENING MAMM BI W/CAD 07/21/2022 8:07 AM 2. MG MM DIG SCREENING MAMM BI W/CAD 03/29/2021 8:09 AM 3. MG MM DIG SCREENING MAMM BI W/CAD 09/11/2019 10:07 AM 4. MG SCBI MM Dig screening mamm BI w/CAD 08/09/2018 3:08 PM FINDINGS: MAMMOGRAPHY: Breast composition: There are scattered areas of fibroglandular density. Mass: No suspicious mass. Architectural distortion: None. Calcifications: No suspicious calcifications. Asymmetric density: None. Skin thickening: None. Axillary adenopathy: None. IMPRESSION: No mammographic evidence of malignancy. Annual screening is recommended unless otherwise clinically indicated. ASSESSMENT: BI-RADS Category 1: Negative.
== END 2024-07-02 23:59 | disposition home or self-care (01) ==
LOC: RAD 14:34
PROVIDERS: PCP Nurse Practitioner Family; Visit Provider Nurse Practitioner Family
DX: Z12.31 Encounter for screening mammogram for malignant neoplasm of breast (principal)
CPT/HCPCS: 77063; 77067

== ENCOUNTER 2024-07-14 12:15 | Outpatient (CLI) | payer MEDICARE, SELFPAY ==
--- NOTE | 2024-07-14 12:18 | XR_ITS ---
FINAL REPORT CLINICAL HISTORY: shortness of breath, cough, copd COMPARISON: 07/19/2023 FINDINGS: 2 views of the chest were obtained . The heart is normal in size. The mediastinum is within normal limits. There is emphysema. The lungs are otherwise clear. There is no pneumothorax. Osseous structures demonstrate several age-indeterminate compression fractures of the mid thoracic spine. There has been prior kyphoplasty of a mid thoracic vertebral body. IMPRESSION: No acute cardiopulmonary process. Age-indeterminate compression fractures of the mid thoracic spine. Reviewed, Interpreted and Dictated by Brooke Vogel MD Transcribed by Sheri Zamudio Authenticated and [facility]
== END 2024-07-14 23:59 | disposition home or self-care (01) ==
LOC: RAD 12:16
PROVIDERS: PCP Family Medicine; Visit Provider Nurse Practitioner Family
DX: R06.02 Shortness of breath (principal); R05.9 Cough, unspecified
CPT/HCPCS: 71046

== ENCOUNTER 2024-08-28 09:38 | Outpatient (CLI) | payer MEDICARE, SELFPAY ==
[2024-08-28] MEDS: ALBUTEROL 0.083% 2.5 MG/3 ML NEB IH (11:19)
== END 2024-08-28 23:59 | disposition home or self-care (01) ==
LOC: RT 09:39
PROVIDERS: PCP Family Medicine; Visit Provider Internal Medicine Pulmonary Disease
DX: R94.2 Abnormal results of pulmonary function studies (principal); R06.02 Shortness of breath
CPT/HCPCS: 94060; 94618; 94726; 94729

== ENCOUNTER 2024-09-17 10:07 | Outpatient (CLI) | payer MEDICARE, SELFPAY ==
--- NOTE | 2024-09-17 11:00 | CT_ITS ---
FINAL REPORT TECHNIQUE: Thin section axial images were obtained from the lung apices to the upper abdomen by computed tomography. Reformatted images were obtained and reviewed. This study was performed with techniques to keep radiation doses al low as reasonably achievable (ALARA). Individualized dose reduction techniques using automated exposure control or adjustment of mA and/or kV according to the patient's size were employed. CLINICAL HISTORY: lung cancer screening, currently a smoker, smokes 4-5 cigs a day, pt has been a smoker for 50 years, pt has COPD, pt has a history of skin cancer COMPARISON: 09/19/2023 FINDINGS: CHEST CT LOW DOSE 69-year-old female, current smoker, 17-encw-qups history CTDI vol (mGy): 2.90 DLP (mGy-cm): 104.99 There is no axillary adenopathy. There is no mediastinal or hilar mass or adenopathy. The heart is normal in size. There is no pericardial or pleural effusion. Pulmonary scarring is present in the right middle lobe and lingula anteriorly. However, lung window images demonstrate new patchy airspace opacities in the bilateral upper and lower lobes, multifocal and ill-defined. These are new since the prior LDCT of 09/19/2023, may represent an acute multifocal pneumonia. Limited images of the upper abdomen are unremarkable. IMPRESSION: Lung-RADS category 0. Recommend 1 month follow up low dose chest CT. Reviewed, Interpreted and Dictated by Ketan Yi MD Transcribed by Lela Hernandez Authenticated and . [facility]
== END 2024-09-17 23:59 | disposition home or self-care (01) ==
LOC: RAD 10:08
PROVIDERS: PCP Family Medicine; Visit Provider Internal Medicine Pulmonary Disease
DX: R91.8 Other nonspecific abnormal finding of lung field (principal); Z12.2 Encounter for screening for malignant neoplasm of respiratory organs; F17.200 Nicotine dependence, unspecified, uncomplicated
CPT/HCPCS: 71271

== ENCOUNTER 2024-09-23 08:40 | Outpatient (CLI) | payer MEDICARE, SELFPAY ==
[2024-09-23 16:54] LABS: Basophils # 0.1 K/mm3 (0-0.2); Basophils % 0.9 % (0.1-2.0); Eosinophils # 0.2 Kmm3 (0.0-0.4); Eosinophils % 2.4 % (0.1-12.0); Hematocrit 46.4 % (37.0-47.0); Hemoglobin 14.5 g/dL (12.2-16.2); Immature Granulocytes # 0.04 10^3uL; Immature Granulocytes % 0.5 %; Lymphocytes # 3.7 K/mm3 (0.7-4.5); Mean Corpuscular HGB Conc 31.3 g/dL (31.8-35.4); Mean Corpuscular Hemoglobin 30.3 pg (27.0-31.2); Mean Corpuscular Volume 96.9 fl (81-99); Mean Platelet Volume 8.8 fl (7.4-10.4); Monocytes # 0.4 K/mm3 (0.1-1.0); Monocytes % 5.5 % (1.7-9.3); Neutrophils # 3.5 K/mm3 (1.8-7.8); Neutrophils % 43.7 % (37.0-80.0); Nucleated Red Blood Cells # 0 10^3/uL; Nucleated Red Blood Cells % 0 %; Platelet Count 469 K/mm3 (142-424); Red Blood Count 4.79 M/mm3 (4.20-5.40); Red Cell Distribution Width 12.6 % (11.5-17.5)
[2024-09-23 17:46] LABS: Alanine Aminotransferase 14 U/L (12-78); Albumin Level 4.4 g/dl (3.5-5.0); Albumin/Globulin Ratio 1.4 (1.1-1.8); Alkaline Phosphatase 70 U/L (38-126); Anion Gap 17.6 mEq/L (5-15); Aspartate Amino Transferase 24 U/L (14-36); Bilirubin,Total 0.6 mg/dl (0.2-1.3); Blood Urea Nitrogen 12 mg/dl (7-17); Calcium 10.4 mg/dl (8.4-10.2); Carbon Dioxide 30 mmol/L (22.0-30.0); Chloride 100 mmol/L (98-107); Chol/HDL Ratio 3.8 (1-3.5); Cholesterol 135 mg/dl (140-200); Estimated Glomerular Filt Rate 71 ml/min (>60); GFR (African American) 86 ML/MIN (>60); Globulin 3.2 g/dL (1.3-3.2); Glucose 64 mg/dl (74-100); HDL Cholesterol 36 mg/dl (40-60); Potassium 4.6 mmoL/L (3.5-5.1); Sodium 143 mmol/L (136-145); Total Protein,Serum 7.6 g/dl (6.3-8.2); Triglycerides 175 mg/dl (30-150); VLDL Cholesterol 35 mg/dL (0-40)
[2024-09-23 17:57] LABS: Direct LDL Cholesterol 62.12 mg/dL (100-129)
[2024-09-23 18:16] LABS: Thyroid Stimulating Hormone 1.37 uIU/mL (0.465-4.68)
[2024-09-23 19:13] LABS: Hemoglobin A1C 5.5 % (4.0-6.0)
[2024-09-24 09:13] LABS: Hepatitis B Surface Antigen Negative (Negative)
== END 2024-09-23 23:59 | disposition home or self-care (01) ==
LOC: LAB.DROPOF 09-24 10:41
PROVIDERS: PCP Nurse Practitioner Family; Visit Provider Nurse Practitioner Family
DX: I10 Essential (primary) hypertension (principal); Z11.59 Encounter for screening for other viral diseases
CPT/HCPCS: 80053; 80061; 83036; 84443; 85025; 87340

== ENCOUNTER 2024-11-25 14:22 | Outpatient (CLI) | payer MEDICARE, SELFPAY ==
--- NOTE | 2024-11-25 14:25 | XR_ITS ---
FINAL REPORT CLINICAL HISTORY: sob COMPARISON: 07/14/2024 FINDINGS: 2 views of the chest were obtained . The heart is normal in size. The mediastinum is within normal limits. The lungs are clear. There is no pneumothorax. Osseous structures demonstrate loss of height of several mid thoracic vertebrae. There are postoperative changes of kyphoplasty with accentuation of lordosis. IMPRESSION: No acute cardiopulmonary process. Reviewed, Interpreted and Dictated by Ketan Yi MD Transcribed by Sheri Zamudio Authenticated and [facility]
--- OUTSIDE RECORDS SUMMARY | 2024-11-25 14:26 | XMS_ITS | Clinical Summary ---
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 11/09/2022 Active nitroglycerin (NITROSTAT) 0.[address] under the tongue Every 5 (Five) Minutes As Needed. 07/26/2022 Active omeprazole (priLOSEC) 20 MG capsule Take 1 capsule by mouth 2 (Two) Times a Day. 11/03/2022 Active tiotropium bromide-olodate rol (Stiolto Respimat) 2.5-2.5 MCG/ACT aerosol solution inhaler Inhale 2 puffs Daily. Active albuterol sulfate HFA 108 (90 Base) MCG/ACT inhaler Inhale 1 puff Every 6 (Six) Hours As Needed for Wheezing. Active potassium chloride 10 MEQ CR tablet Take 1 tablet by mouth Daily. Active metoprolol succinate XL (TOPROL-XL) 100 MG 24 hr tablet Take 1 tablet by mouth Daily. Active benazepril (LOTENSIN) 5 MG tablet Take 1 tablet by mouth Daily. Active furosemide (LASIX) 20 MG tablet Take 1 tablet by mouth 2 (Two) Times a Day. Active atorvastatin (LIPITOR) 40 MG tablet Take 1 tablet by mouth Daily. Active aspirin 81 MG EC tablet Take 1 tablet by mouth Daily. Active alendronate (FOSAMAX) 70 MG tablet Take 1 tablet by mouth Every 7 (Seven) Days. Active Active Problems Problem Noted Date Diagnosed Date Coronary artery disease invo lving [place] heart without angina pectoris 11/15/2022 Assessment & Plan (11/15/2022 1:52 PM EDT): History of CAD s/p 4 stents placed in 2003 while living in [place]. - Continue aspirin, atorvastatin, metoprolol and benazepril at current doses. Hypertension 11/15/2022 Assessment & Plan (11/15/2022 1:27 PM EDT): Hypertension is stable . Continue current treatment regimen. Regular aerobic exercise. Stop smoking. Blood pressure will be reassessed at the next regular appointment. Hyperlipidemia 11/15/2022 Assessment & Plan (11/15/2022 1:53 PM EDT): Managed by PCP. Reports that last lipid panel was normal. - Continue atorvastatin 40 mg once daily. SOB (shortness of breath) 11/15/2022 Assessment & Plan (11/15/2022 1:52 PM EDT): Patient reports worsening shortness of breath and fatigue. History of CAD s/p previous stenting in 2003. - We will proceed with nuclear stress test and echocardiogram for further evaluation. Family History Medical History Relation Name Comments Arthritis Brother 1 Drug abuse Brother 2 Brain cancer Brother 3 Heart attack Father ALS Mother Diabetes Sister 1 Cancer Sister 2 Arthritis Sister 3 Relation Name Status Comments Brother 1 Alive Brother 2 Alive Brother 3 Father (Age 55) Mother (Age 68) Sister 1 (Age 40) Sister 2 Alive Sister 3 Alive Social History Tobacco Use Types Packs/Day Years Used Date Smoking Tobacco: Every Day Cigarettes 0.3 50 Passive Smoke Exposure: Current Smokeless Tobacco: Never Tobacco Cessation:Ready to Q uit: Not Asked Alcohol Use Standard Drinks/Week Comments Never 0 (1 standard drink = 0.6 oz pur e alcohol) Abuse Screen Answer Date Recorded Unsafe at Home or Work/School Not on file Feels Threatened by Someone? Not on file 12/2022 Does Anyone Keep You from Co ntacting Others or Doint Things Outside the Home? Not on file 01/29/2023 Physical Sign of Abuse Present Not on file 1 Housing Stability Answer Date Recorded Current Living Arrangements Not on file 12/2022 Potentially Unsafe Housing Conditions Not on osito e 01/29/2023 Family and Community Support Answer Del e Recorded Help with Day-to-Day Activities Not on file 01/29/2023 Lonely or Isolated Not on file 01/29/2023 Employment Answer Date Recorded Do you want help finding or keeping work or a dinesh b? Not on file 01/29/2023 Disabilities Answer Date Recorded Concentrating, Remembering, or Making Decisions Difficulty Not on file 01/29/2023 Doing Errands Independently Difficulty Not on fi le 01/29/2023 Education Answer Date Recorded Help with school or training? Not on file Preferred Language Not on file 01/29/2023 Comments Unknown Sex and Gender Information Value Date Recorded Sex Assigned at Not on file Legal Sex Female 12:12 PM EDT Gender Identity Not on file Sexual Orientation Not on file Last Filed Vital Signs Vital Sign Reading Time Taken Comments Blood Pressure 132/72 11/15/2022 1:03 PM EDT Pulse 92 11/15/2022 1:03 PM EDT Temperature - - Respiratory Rate - - Oxygen Saturation 91% 11/15/2022 1:03 PM EDT Inhaled Oxygen Concentration - - Weight 75.8 kg (167 lb) 11/15/2022 1:03 PM EDT Height 157.5 cm (5' 2 ) 11/15/2022 1:03 PM EDT Body Mass Index 30.54 11/15/2022 1:03 PM EDT Plan of Treatment Health Maintenance Due Date Last Done Comments DXA SCAN 1956 LIPID PANEL 1956 TDAP/TD VACCINES (1 - Tdap) 1975 MAMMOGRAM 1996 COLOGUARD 2001 COLON CANCER SCREENING 5 YEA R SIGMOID[address]COPY [address] COLONOGRAPHY 2001 FECAL OCCULT BLOOD TEST 2001 FIT Testing (1 year) 2001 ZOSTER VACCINE (1 of 2) 2006 ANNUAL WELLNESS VISIT 07/03/2017 HEPATITIS C SCREENING 07/03/2017 Pneumococcal Vaccine 50+ (2 of 2 - PCV) 01/02/2019 01/02/2018, 04/23/2017 COVID-19 Vaccine (2 - 2023-2 5 season) 2023 07/01/2020 INFLUENZA VACCINE 01/21/2025 02/09/2021, , 01/22/2019, Additional history exists COLONOSCOPY 07/20/2025 07/21/2015 COLORECTAL CANCER SCREENING 07/20/2025 Insurance [employer] MEDICARE ADVANTAGE Care Teams Pilot Plant Operator Helper Relationship Specialty Start Date End Date Abhijeet Wilson MD [address] [place] [id number] PCP - General Family Medicine 11/15/22
--- OUTSIDE RECORDS SUMMARY | 2024-11-25 14:26 | XMS_ITS | Clinical Summary ---
Author Organization Healthcare Address [address] [id number] Care Team Providers Care Police Cadet Name Role Phone Kingston Ybarra MD Primary Care Provider [phone] Immunizations Immunization Administration Dates Next Due Influenza, seasonal, injectable 04/23/2017 Pneumococcal Polysaccharide PPV23 04/23/2017 Family History Medical History Relation Name Comments Cardiac disorder Other 1 Stroke Other 2 Depression Other 3 Diabetes Other 4 Hypertension Other 5 Other cancer Other 6 Relation Name Status Comments Other 1 Other 2 Other 3 Other 4 Other 5 Other 6 Social History Tobacco Use Types Packs/Day Years Used Date Smoking Tobacco: Every Day Alcohol Use Standard Drinks/Week Comments No 0 (1 standard drink = 0.6 oz pur e alcohol) Comments Unknown Sex and Gender Information Value Date Recorded Sex Assigned at Not on file Legal Sex Female 8:23 PM EDT Gender Identity Not on file Sexual Orientation Not on file Last Filed Vital Signs Vital Sign Reading Time Taken Comments Blood Pressure 109/70 11/12/2018 9:58 AM EDT Pulse 87 11/12/2018 9:58 AM EDT Temperature 36.2 C (97.1 F) 11/12/2018 9:58 AM EDT Respiratory Rate 24 11/12/2018 9:58 AM EDT Oxygen Saturation - - Inhaled Oxygen Concentration - - Weight 85.7 kg (189 lb) 11/12/2018 9:58 AM EDT Height 165.1 cm (5' 5 ) 11/12/2018 9:58 AM EDT Body Mass Index 31.45 11/12/2018 9:58 AM EDT Plan of Treatment Health Maintenance Due Date Last Done Comments [facility]-Bone Density Scan 1956 [facility]-Depression Screening 1956 [facility]-Infant/Child/Adol SDOH Screenings 1955 [facility]- SDOH Screenings 1974 [facility]-Adult SDOH Screenings 1974 [facility]-DTaP,Tdap,and Td Vaccines (1 - Tdap) 1975 CT Colonography 2001 FIT-DNA 2001 FIT 2001 FOBT 2001 Sigmoidoscopy 2001 [facility]-Zoster Vaccines (1 of 2) 2006 [facility]-Pneumococcal Vaccine: 50+ Years (2 of 2 - PCV) 01/02/2019 01/02/2018, 04/23/2017 [id number] Vaccine (2 - season) 2023 07/01/2020 [facility]-Influenza Vaccine (#1) 12/22/202402/03, 01/25/2023, 02/09/2021, Additional history exists Colonoscopy 07/20/2025 07/21/2015 [facility]-Colorectal Cancer Screening 07/20/2025 [facility]-RSV Vaccine: 60+ Years or (1 - 1-dose 75+ series) 2031 HPV Vaccines Aged Out No longer eligi ble based on patient's age to complete this topic [facility]-HIB Vaccines Aged Out No longer e ligible based on patient's age to complete this topic [facility]-Hepatitis A Vaccines Aged Out No longer eligible based on patient's age to complete this topic [facility]-IPV Vaccines Aged Out No longer e ligible based on patient's age to complete this topic [facility]-Rotavirus Vaccines Aged Out No lo nger eligible based on patient's age to complete this topic Procedures Procedure Name Priority Date/Time Associated Diagnosis Comments COLONOSCOPY 07/21/2015 from Last 3 Months or Most Recently Relevant to Health Maintenance Results * COLONOSCOPY (07/21/2015) Anatomical Region Laterality Modality Endoscopy Narrative 07/21/2015 Ordered by an unspecified provider. us Historical Provider GI PROCEDURE ORDERABLES F inal Result from Last 3 Months or Most Recently Relevant to Health Maintenance Insurance Obtain Address [place] [address] [employer] MED[employer] Care Teams Police Cadet Relationship Specialty Start Date End Date Kingston Ybarra MD [address] [place] [address] [place] [id number] PCP - General 09/03/20
--- OUTSIDE RECORDS SUMMARY | 2024-11-25 15:25 | XMS_ITS | CCD ---
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 Name Role Phone Sadaf Miranda NP Primary Care Provider Unavaila ble Unavailable Chronic Care Management Unavaila ble Summary Purpose DataExchange Insurance Providers Payer name Policy type / Coverage type Covered democrat ID Effective Begin Date Effective End Date ELEVANCE BCBS [facility] [id number] Unknown Unknown Family history Mother Diagnosis Age At Onset Diabetes Unknown Father Diagnosis Age At Onset CAD (Coronary Artery Disease) Unknown Social History Social History Element Codes Description Effec tive Dates Marital status Unknown 02/11/2024 Number of children Unknown 1 Living arrangements Unknown Trailer 02/11/20 24 Number of children in household Unknown 0 02/11/2024 Number of adults in household Unknown 1 02/11/2024 Education level Unknown High School Graduate 01/22 Employment Unknown Retired from [employer] 02/11/2024 Tobacco history Unknown Current User (Co mplete cessation counseling) 02/11/[address]: [id number] Never drinks alco hol 02/11/2024 Illegal/Recreational drug history Unknown *Has never used illegal/recreational drugs 02/11/2024 Allergies, Adverse Reactions, Alerts Substance Reaction Codes Entered Date Inactivated Date Status *No known food allergies Unknown 02/11/2024 No Inactive Date Active Pollen *other reaction (specify in notes), Unknown 02/11/2024 No Inactive Date Active * NO KNOWN DRUG ALLERGIES Unknown 02/11/2024 No Inactive Date Active Problems Condition Codes Effective Dates Condition St atus COPD mixed type ICD-10: J44.9 ICD-9: 496 02/11/2024 Active Encounter for general adult medical examination with abnormal findings ICD-10: Z00.01 ICD-9: V70.0 02/11/2024 Active Essential hypertension ICD-10: I10 ICD-9: 401.9 02/11/2024 Active Moderate episode of recurren t major depressive disorder ICD-10: F33.1 ICD-9: 296.32 02/11/2024 Active ANDREW (obstructive sleep apnea) ICD-10: G4 7.33 ICD-9: 327.23 02/11/2024 Active 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 ICD-9: 579.3 02/11/2024 Active Tobacco abuse ICD-10: Z72.0 ICD-9: 305.1 02/11/2024 Active Acute bronchitis Unknown 06/11/2016 Active Closed fracture thoracic vertebra Unknown 017 Active Compression fracture of thor acic spine Unknown 07/10/2016 Active Cough Unknown 06/11/2016 Active Depressive disorder Unknown 05/22/2016 Active Dyspnea Unknown 06/11/2016 Active Edema Unknown 05/17/2016 Active Fibromyositis Unknown 05/22/2016 Active Generalized abdominal pain Unknown 07/10/2016 A ctive Generalized anxiety disorder Unknown 05/17/2016 Active 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 Active Localized edema Unknown 05/17/2016 Active Low back pain Unknown 07/10/2016 Active Mild major depression, singl e episode Unknown 05/22/2016 Active Pain in thoracic spine Unknown 07/10/2016 Activ e Abnormal tandem gait test ICD-10: R26.9 02/09/2024 A ctive Age-related osteoporosis wit hout current pathological fracture ICD-10: M81.0 02/09/2024 Active BMI 31.0-31.9,adult ICD-10: Z68.31 02/09/2024 Active BMI 32.0-32.9,adult ICD-10: Z68.32 02/09/2024 Active BMI 33.0-33.9,adult ICD-10: Z68.33 02/09/2024 Active Chronic pain syndrome ICD-10: G89.4 02/09/2024 Activ e COPD exacerbation ICD-10: J44.1 02/09/2024 Active COPD mixed type ICD-10: J44.9 02/09/2024 Active Cyst on ear ICD-10: Q18.1 02/09/2024 Active 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 02/09/2024 Active Daytime somnolence ICD-10: R40.0 02/09/2024 Active DDD (degenerative disc disea se), thoracolumbar ICD-10: M51.35 02/09/2024 Active Diastolic dysfunction withou t heart failure ICD-10: I51.89 02/09/2024 Active Emphysema, unspecified ICD-10: J43.9 02/09/2024 Acti ve Essential hypertension ICD-10: I10 02/09/2024 Activ e Gastro-esophageal reflux dis ease without esophagitis ICD-10: K21.9 02/09/2024 Active Hyperlipidemia LDL goal <130 ICD-10: E78.5 02/09/2024 Active Middle insomnia ICD-10: G47.00 02/09/2024 Active Mixed hyperlipidemia ICD-10: E78.2 02/09/2024 Active Moderate episode of recurren t major depressive disorder ICD-10: F33.1 02/09/2024 Active Mucopurulent chronic bronchitis ICD-10: J41.1 02/09/20 24 Active Nocturnal dyspnea ICD-10: R06.00 02/09/2024 Active Nocturnal hypoxia ICD-10: G47.34 02/09/2024 Active Nystagmus ICD-10: H55.00 02/09/2024 Active ANDREW (obstructive sleep apnea) ICD-10: G47.33 Active Peripheral edema ICD-10: R60.9 02/09/2024 Active Personal history of tobacco use ICD-10: Z87.891 2023 Active Pre-diabetes ICD-10: R73.03 02/09/2024 Active Restless leg syndrome ICD-10: G25.81 02/09/2024 Acti ve Seasonal allergic rhinitis d ue to pollen ICD-10: J30.1 02/09/2024 Active 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 02/09/2024 Active Thrombocytosis ICD-10: D47.3 02/09/2024 Active Tobacco abuse ICD-10: Z72.0 02/09/2024 Active Trigeminal neuralgia of righ t side of face ICD-10: G50.0 02/09/2024 Active Vitamin D deficiency ICD-10: E55.9 02/09/2024 Active Medications Medication Codes Instructions Start Date Stop Date Status Fill Instructions Mupirocin 2% RxNorm: 1 richa applied topically 3 times a day for 7 days 023 No Stop Date Active sulfamethoxazole-trime thoprim DS 800 mg-160 mg RxNorm: 171027 1 Tablet(s) Oral every 12 hours for 10 days 023 2023 Inactive Prolia 60 mg/mL RxNorm: as directed subcutaneously every 6 months for 90 days 023 No Stop Date Active ezetimibe 10 mg RxNorm: 882162 1 Tablet(s) Oral every day for 30 days 023 2023 Inactive Cetirizine Hydrochloride 10 mg RxNorm: 1 tab(s) orally once a day as needed for allergy symptoms for 30 days 020 2023 Inactive Wixela Inhub 250 mcg-50 mcg/dose powder for inhalation RxNorm: 1954005 inhale 1 puff by inhalation route 2 times per day in the morning and evening approximately 12 hours apart 019 2022 Inactive ipratropium 0.5 mg-albuterol 3 mg (2.5 mg base)/3 mL nebulization soln ... RxNorm: 5011164 Use 1 vial(s) by nebulizer qid 017 2017 Inactive cholecalciferol (vitamin D3) 1,250 mcg (50,000 unit) capsule ... RxNorm: 444654 Take 1 capsule(s) by mouth q week 017 2022 Inactive Crestor 20 mg tablet RxNorm: 570507 Take 1 Tablet(s) Oral every day 017 2023 Inactive diclofenac sodium 75 mg tablet,delayed release RxNorm: 498359 Take 1 Tablet(s) Oral two times a day 017 2023 Inactive dextromethorphan-guaif enesin 10 mg-100 mg/5 mL oral syrup RxNorm: 961655 Take 1 teaspoon by mouth q4h prn for cough 2016 Inactive prednisone 5 mg tablet RxNorm: 699865 7pills po today and decrease by one q day 2016 Inactive Zithromax 250 mg tablet RxNorm: 251174 Take 2 tablet(s) by mouth on day 1 then 1 tablet every day for the next 4 days. 017 2016 Inactive Lyrica 75 mg capsule RxNorm: 034220 Take 1 Capsule(s) Oral every day 2016 Inactive alendronate 70 mg tablet RxNorm: 615991 Take 1 tablet(s) by mouth q week No Stop Date Active aspirin 81 mg tablet,delayed release RxNorm: 699033 Take 1 Tablet(s) Oral every morning No Stop Date Active buspirone 10 mg tablet RxNorm: 677303 Take 1 Tablet(s) Oral two times a day 017 2022 Inactive paroxetine 10 mg tablet RxNorm: 541018 Take 1 Tablet(s) Oral every day 017 2022 Inactive benazepril 10 mg tablet RxNorm: 381472 Take 1 Tablet(s) Oral every day 2023 Inactive hydrochlorothiazide 12.5 mg tablet RxNorm: 833926 Take 1 Tablet(s) Oral every day 2022 Inactive gabapentin 600 mg tablet RxNorm: 522299 1 Oral three times a day 017 2016 Inactive amlodipine 5 mg tablet RxNorm: 859902 once per day 017 2022 Inactive metoprolol tartrate 25 mg tablet RxNorm: 065219 1 Oral every day 017 2016 Inactive omeprazole 40 mg capsule,delayed release RxNorm: 261923 Take 1 Capsule(s) Oral every day 017 2022 Inactive metoclopramide 10 mg tablet RxNorm: 692580 1 Tablet(s) four times a day 017 2022 Inactive calcium 250 mg (as citrate)-vitamin D3 5 mcg (200 unit) tablet ... RxNorm: 7592187 Take 1 Tablet(s) Oral two times a day 017 2016 Inactive Lasix 20 mg tablet RxNorm: 092021 1/2 Tablet(s) Oral every day 017 2016 Inactive gabapentin 300 mg capsule RxNorm: 935004 1-3 times A DAY Active furosemide 20 mg RxNorm: 850072 1 Tablet(s) Oral two times a day for 90 days Active Ventolin HFA CFC free 90 mcg/inh RxNorm: 145430 Inhale 2 Puff(s) four times a day for 90 days Active nitroglycerin 0.4 mg sublingual tablet RxNorm: 129854 SL Active omeprazole 20 mg capsule,delayed release RxNorm: 061141 oral Active metoprolol succinate ER 100 mg capsule sprinkle, ext. release 24 hr ... RxNorm: 7569944 Take 1 capsule every day by oral route. Active Benazepril Hydrochloride 5 mg RxNorm: 1 tab(s) orally once a day for 30 day(s) Active Stiolto Respimat 60 ACT 2.5 mcg-2.5 mcg/inh RxNorm: 2 puff(s) inhaled every 24 hours Active mupirocin 2 % topical ointment RxNorm: 469399 top 2022 Inactive chlorhexidine gluconate 0.12 % mouthwash RxNorm: 753177 MM 2022 Inactive amoxicillin 875 mg-potassium clavulanate 125 mg tablet RxNorm: 437563 oral 2022 Inactive oxycodone-acetaminophe n 5 mg-325 mg tablet RxNorm: 7914783 Take 1 tablet every 4 hours by oral route as needed. 2023 Inactive hydrocodone 5 mg-acetaminophen 325 mg tablet RxNorm: 693340 oral 2022 Inactive atorvastatin 40 mg RxNorm: 518686 1 Tablet(s) Oral every day for 90 days 2023 Inactive potassium chloride 10 mEq/100mL in sterile water intravenous piggyback ... RxNorm: 485620 Inject by intravenous route. 2023 Inactive sulfamethoxazole 800 mg-trimethoprim 160 mg tablet RxNorm: 809695 oral 2022 Inactive Stiolto Respimat 2.5 mcg-2.5 mcg/actuation solution for inhalation ... RxNorm: 2857164 Inhale 2 puffs every day by inhalation route. 2023 Inactive amoxicillin 500 mg capsule RxNorm: 837987 oral 2022 Inactive Medication Administered No Medication Administered data Procedures Procedure Codes Date MED LIST DOCD IN [facility] CPT-4: 1159F 02/11/2024 RVW MEDS BY RX/DR IN [facility] CPT-4: 1160F 2023 Discharge Meds Reconciled w/ Current Med list CP T-4: 1111F 02/11/2024 Amnt pain noted; pain prsnt CPT-4: 1125F 01/[address]: [id number] CPT-4: R12 Unknown Vital Signs Date Vital 02/11/2024 Blood Pressure 1: 115/75 Code: 8480-6 BMI: 26.4 Code: 10844-6 Heart Rate 1: 70 bpm Height: 5'4 Code: 8302-2 Respiratory Rate: 18 bpm SpO2: 98% Temperature: 36.0 (C) / 96.8 (F) Weight: 153 lbs 8 oz Code: 55906-0 Reason For Visit Reason For Visit Effective Dates Notes new patient welcome visit 02/11/2024 Encounters Encounter Performer Location Location Address Codes Date ([address]47) Home or Residence Visit [employer] - Moderate Level, 60 mins Diagnosis: Encounter for general adult medical examination with abnormal findings[ICD10: Z00.01] Diagnosis: Short bowel syndrome[ICD10: K91.2] Diagnosis: Moderate episode of recurrent major depressive disorder[ICD10: F33.1] Diagnosis: COPD mixed type[ICD10: J44.9] Diagnosis: Essential hypertension[ICD10 : I10] Diagnosis: ANDREW (obstructive sleep apnea)[ICD10: G47.33] Diagnosis: Tobacco abuse[ICD10: Z72.0] Sadaf [facility] [place] [facility] [address] [place] [address] CPT-4: 47039 02/11/2024 Plan of Care Planned Activity Notes Codes Status Date Visit Plan: Z00.01-V70.0 Encount er for general adult medical examination with abnormal findings K91.2-579.3 Short bowel syndrome F33.1-296.32 Moderate episode of recurrent major depressive disorder J44.9-496 COPD mixed type I10-401.9 Essential hypertension G47.33-327.23 ANDREW (obstructive sleep apnea) Z72.0-305.1 Tobacco abuse This is a pleasant 68 year old female that presents for a welcome visit today. . Patient reports that she has a significant history with her bowels. She has had 8 surgeries on her bowels. They have taken more of her bowel out each time. Her last two surgeries were done in [facility]. She has still had issues with having an obstruction in her bowel. She went to the ER a month ago due to being impacted and she was vomiting. They send t her home as they could not find anything wrong with her. She went to see the surgeon who did her last bowel surgery and he thinks maybe she had an infection or something. She does not like the surgeon she has been seeing DR VYAS. She does not want to continue to see him as he will not fix her and keeps trying to send her to . She thinks they said she has short bowel syndrome. She has ANDREW and COPD and follows with pulmonology. She does still smoke cigarettes and wants to quit but has been unable at this time with medications. She monitors her HTN. She does have a history of heart attacks in the past with stents. She does not follow with cardiology anymore. We will put in a referral for food insecurity today. Patient also needs help with getting to appointments. She does have one medication that is very expensive. We will put in referral for help covering the cost. We will send her to GI for evaluation of her symptoms. Patients main complaint is that her bowels bother her all the time. She does frequent the emergency room over them. We hope that with the referral to GI she will be monitored more closely. We will continue to follow up on this. We did briefly talk about smoking cessation with this patient. Will follow up at next visit. Patient was encouraged to contact us sooner if needed. Patient will continue her current treatment plan . Patient verbalized understanding and agreeable to plan of care. 02/11/2024 Appointment: Sadaf Miranda WPtel: [address] [id number] 02/11/2024 Patient Education: Patient Medication Summary Completed 02/11/2024 Referral: [facility] WPtel: [address] 2 [id number] Referral Order Faxed Instructions Comment Date . Z00.01-V70.0 Encounter for general adult medical examination with abnormal findings K91.2-579.3 Short bowel syndrome F33.1-296.32 Moderate episode of recurrent major depressive disorder J44.9-496 COPD mixed type I10-401.9 Essential hypertension G47.33-327.23 ANDREW (obstructive sleep apnea) Z72.0-305.1 Tobacco abuse This is a pleasant 68 year old female that presents for a welcome visit today. . Patient reports that she has a significant history with her bowels. She has had 8 surgeries on her bowels. They have taken more of her bowel out each time. Her last two surgeries were done in [facility]. She has still had issues with having an obstruction in her bowel. She went to the ER a month ago due to being impacted and she was vomiting. They send t her home as they could not find anything wrong with her. She went to see the surgeon who did her last bowel surgery and he thinks maybe she had an infection or something. She does not like the surgeon she has been seeing DR VYAS. She does not want to continue to see him as he will not fix her and keeps trying to send her to . She thinks they said she has short bowel syndrome. She has ANDREW and COPD and follows with pulmonology. She does still smoke cigarettes and wants to quit but has been unable at this time with medications. She monitors her HTN. She does have a history of heart attacks in the past with stents. She does not follow with cardiology anymore. We will put in a referral for food insecurity today. Patient also needs help with getting to appointments. She does have one medication that is very expensive. We will put in referral for help covering the cost. We will send her to GI for evaluation of her symptoms. Patients main complaint is that her bowels bother her all the time. She does frequent the emergency room over them. We hope that with the referral to GI she will be monitored more closely. We will continue to follow up on this. We did briefly talk about smoking cessation with this patient. Will follow up at next visit. Patient was encouraged to contact us sooner if needed. Patient will continue her current treatment plan . Patient verbalized understanding and agreeable to plan of care. 02/11/2024 Medical Equipment No Medical Equipment data Advance Directives No Advance Directive data
--- OUTSIDE RECORDS SUMMARY | 2024-11-25 15:25 | XMS_ITS | CCD ---
Author Name Sadaf Miranda NP Address [address] [place] [address] Phone Organization [facility] Phone Care Team Providers Care Deputy General Counsel Name Role Phone Sadaf Miranda NP Primary Care Provider Unavaila ble Unavailable Chronic Care Management Unavaila ble Summary Purpose DataExchange Insurance Providers Payer name Policy type / Coverage type Covered republican ID Effective Begin Date Effective End Date ELEV[employer] BCBS [facility] [id number] Unknown Unknown Family history Mother Diagnosis Age [...] School Graduate 01/22 Employment Unknown Retired from [employer] 02/11/2024 Tobacco history Unknown Current User (Co mplete cessation counseling) 02/11/[address]: 688572758 Never drinks alco hol 02/11/2024 Illegal/Recreational drug [...] sulfamethoxazole-trime thoprim DS 800 mg-160 mg RxNorm: 204642 1 Tablet(s) Oral every 12 hours for 10 days 023 2023 Inactive Prolia 60 mg/mL RxNorm: as directed subcutaneously every 6 months for 90 days 023 No Stop Date Active ezetimibe 10 mg RxNorm: 297725 1 Tablet(s) Oral every day for 30 days 023 2023 Inactive Cetirizine Hydrochloride 10 mg RxNorm: 1 tab(s) orally once a day as needed for allergy symptoms for 30 days 020 2023 Inactive Wixela Inhub 250 mcg-50 mcg/dose powder for inhalation RxNorm: 9749306 inhale 1 puff by inhalation route 2 times per day in the morning and evening approximately 12 hours apart 019 2022 Inactive ipratropium 0.5 mg-albuterol 3 mg (2.5 mg base)/3 mL nebulization soln ... RxNorm: 3604370 Use 1 vial(s) by nebulizer qid 017 2017 Inactive cholecalciferol (vitamin D3) 1,250 mcg (50,000 unit) capsule ... RxNorm: 754386 Take 1 capsule(s) by mouth q week 017 2022 Inactive Crestor 20 mg tablet RxNorm: 612087 Take 1 Tablet(s) Oral every day 017 2023 Inactive diclofenac sodium 75 mg tablet,delayed release RxNorm: 006957 Take 1 Tablet(s) Oral two times a day 017 2023 Inactive dextromethorphan-guaif enesin 10 mg-100 mg/5 mL oral syrup RxNorm: 053034 Take 1 teaspoon by mouth q4h prn for cough 2016 Inactive prednisone 5 mg tablet RxNorm: 526550 7pills po today and decrease by one q day 2016 Inactive Zithromax 250 mg tablet RxNorm: 706862 Take 2 tablet(s) by mouth on day 1 then 1 tablet every day for the next 4 days. 017 2016 Inactive Lyrica 75 mg capsule RxNorm: 894726 Take 1 Capsule(s) Oral every day 2016 Inactive alendronate 70 mg tablet RxNorm: 289212 Take 1 tablet(s) by mouth q week No Stop Date Active aspirin 81 mg tablet,delayed release RxNorm: 352627 Take 1 Tablet(s) Oral every morning No Stop Date Active buspirone 10 mg tablet RxNorm: 029740 Take 1 Tablet(s) Oral two times a day 017 2022 Inactive paroxetine 10 mg tablet RxNorm: 059819 Take 1 Tablet(s) Oral every day 017 2022 Inactive benazepril 10 mg tablet RxNorm: 524342 Take 1 Tablet(s) Oral every day 2023 Inactive hydrochlorothiazide 12.5 mg tablet RxNorm: 246538 Take 1 Tablet(s) Oral every day 2022 Inactive gabapentin 600 mg tablet RxNorm: 325565 1 Oral three times a day 017 2016 Inactive amlodipine 5 mg tablet RxNorm: 916215 once per day 017 2022 Inactive metoprolol tartrate 25 mg tablet RxNorm: 918122 1 Oral every day 017 2016 Inactive omeprazole 40 mg capsule,delayed release RxNorm: 595963 Take 1 Capsule(s) Oral every day 017 2022 Inactive metoclopramide 10 mg tablet RxNorm: 106012 1 Tablet(s) four times a day 017 2022 Inactive calcium 250 mg (as citrate)-vitamin D3 5 mcg (200 unit) tablet ... RxNorm: 7437738 Take 1 Tablet(s) Oral two times a day 017 2016 Inactive Lasix 20 mg tablet RxNorm: 648737 1/2 Tablet(s) Oral every day 017 2016 Inactive gabapentin 300 mg capsule RxNorm: 982201 1-3 times A DAY Active furosemide 20 mg RxNorm: 718765 1 Tablet(s) Oral two times a day for 90 days Active Ventolin HFA CFC free 90 mcg/inh RxNorm: 121221 Inhale 2 Puff(s) four times a day for 90 days Active nitroglycerin 0.4 mg sublingual tablet RxNorm: 646967 SL Active omeprazole 20 mg capsule,delayed release RxNorm: 937534 oral Active metoprolol succinate ER 100 mg capsule sprinkle, ext. release 24 hr ... RxNorm: 4468893 Take 1 capsule every day by oral route. Active Benazepril Hydrochloride 5 mg RxNorm: 1 tab(s) orally once a day for 30 day(s) Active Stiolto Respimat 60 ACT 2.5 mcg-2.5 mcg/inh RxNorm: 2 puff(s) inhaled every 24 hours Active mupirocin 2 % topical ointment RxNorm: 240975 top 2022 Inactive chlorhexidine gluconate 0.12 % mouthwash RxNorm: 908253 MM 2022 Inactive amoxicillin 875 mg-potassium clavulanate 125 mg tablet RxNorm: 193908 oral 2022 Inactive oxycodone-acetaminophe n 5 mg-325 mg tablet RxNorm: 6608196 Take 1 tablet every 4 hours by oral route as needed. 2023 Inactive hydrocodone 5 mg-acetaminophen 325 mg tablet RxNorm: 626658 oral 2022 Inactive atorvastatin 40 mg RxNorm: 701649 1 Tablet(s) Oral every day for 90 days 2023 Inactive potassium chloride 10 mEq/100mL in sterile water intravenous piggyback ... RxNorm: 158664 Inject by intravenous route. 2023 Inactive sulfamethoxazole 800 mg-trimethoprim 160 mg tablet RxNorm: 432729 oral 2022 Inactive Stiolto Respimat 2.5 mcg-2.5 mcg/actuation solution for inhalation ... RxNorm: 0701607 Inhale 2 puffs every day by inhalation route. 2023 Inactive amoxicillin 500 mg capsule RxNorm: 975715 oral 2022 Inactive Medication Administered No Medication Administered data Procedures Procedure Codes Date MED LIST DOCD IN [facility] CPT-4: 1159F 02/11/2024 RVW MEDS BY RX/DR IN [facility] CPT-4: 1160F 2023 Discharge Meds Reconciled w/ Current Med list CP T-4: 1111F 02/11/2024 Amnt pain noted; pain prsnt CPT-4: 1125F 01/[address]: 306 431996 CPT-4: R12 Unknown Vital Signs Date Vital 02/11/2024 Blood Pressure 1: 115/75 Code: 8480-6 BMI: 26.4 Code: 74609-2 Heart Rate 1: 70 bpm Height: 5'4 Code: 8302-2 Respiratory Rate: 18 bpm SpO2: 98% Temperature: 36.0 (C) / 96.8 (F) Weight: 153 lbs 8 oz Code: 54431-1 Reason For Visit Reason For Visit Effective Dates Notes new patient welcome visit 02/11/2024 Encounters Encounter Performer Location Location Address Codes Date ([address]) Home or Residence Visit [employer] - Moderate Level, 60 mins Diagnosis: Encounter for general adult medical examination with abnormal findings[ICD10: Z00.01] Diagnosis: Short bowel syndrome[ICD10: K91.2] Diagnosis: Moderate episode of recurrent major depressive disorder[ICD10: F33.1] Diagnosis: COPD mixed type[ICD10: J44.9] Diagnosis: Essential hypertension[ICD10 : I10] Diagnosis: ANDREW (obstructive sleep apnea)[ICD10: G47.33] Diagnosis: Tobacco abuse[ICD10: Z72.0] Sadaf [facility] [place] Office [address] [place] [address] CPT-4: 43990 02/11/2024 Plan of Care Planned Activity Notes [...] Her last two surgeries were done in [facility]. She has still had issues with having [...] WPtel: [address] [id number] 02/11/2024 Patient Education: Patient Medication Summary Completed 02/11/2024 Referral: [facility] WPtel: [address] 2 [id number] Referral Order Faxed Instructions Comment Date . [...] Her last two surgeries were done in [facility]. She has still had issues with having [...]
== END 2024-11-25 23:59 | disposition home or self-care (01) ==
LOC: RAD 14:23
PROVIDERS: PCP Family Medicine; Visit Provider Internal Medicine Pulmonary Disease
DX: R06.02 Shortness of breath (principal)
CPT/HCPCS: 71046